=== PATIENT | male | born 1950 | race Caucasian/White ===

== ENCOUNTER 2022-09-03 13:13 | Inpatient (IN) | payer OTHER, SELFPAY ==
[2022-09-03 13:15] VITALS: BP 178/95; PULSE 65; RESP 14; TEMP 36.6; O2SAT 97; BMI 25.7
--- NOTE | 2022-09-03 14:01 | VDLE_ITS ---
Reason For Study: Bilateral leg swelling RIGHT LEFT GSV is normal. GSV is normal. CFV is compressible, spontaneous, competent CFV is compressible, spontaneous, competent, and demonstrates pulsatile venous flow. and demonstrates pulsatile venous flow. FV is compressible, spontaneous, competent FV is compressible, spontaneous, competent and demonstrates pulsatile venous flow. and demonstrates pulsatile venous flow. POP V is compressible, spontaneous, competent PopV is partially comrpessible with bright and demonstrates pulsatile venous flow. intraluminal echoes consistent with Chronic T/P Trunk is compressible. DVT. Pulsatile venous flow noted. PTV is compressible. T/P trunk is partially compressible with RT PerV is compressible. bright intraluminal echoes noted consistent Procedure with Chronic DVT. This is a venous duplex using B-mode, color PTV is compressible. flow and spectral Doppler. LT PerV is compressible. Exam performed portable in ED. A preliminary report was called and/or faxed to Dr. Zheng. VL/Venous Duplex US - Melvin Extrem Interpretation Summary Chronic deep venous thrombosis left popliteal and tibial peroneal trunk Pulsatile venous flow is noted bilaterally consistent with proximal venous hype rtension or obstruction. Clinical correlation would be appropriate. Patent and compressible bilateral great saphenous veins Ordering Physician: Charlie Zheng Referring Physician: [facility] Performed By: Anna Frederick RVT
--- NOTE | 2022-09-03 14:21 | ED.RN ---
PIV removed per patients request
--- NOTE | 2022-09-03 14:22 | ED.VIS.DYS ---
HPI History of Present Illness Chief Complaint: Shortness of Breath Informant: patient and friend Narrative Narrative: Patient presents with a complaint of dyspnea. Patient states that he has been having dyspnea for about 6 months. It really only occurs when he walks a long distance. Today he walked to the [employer] and he had to stop a couple times. He was dyspneic when he was at the bank so the custodian blood bank recommended he come in. He called his friend who brought him in. He is not dyspneic now. He is not getting chest pain with this. He is not coughing. No hemoptysis. He also states on review of systems that he has been having some leg swelling going on for about the same period of time. He has no history of CHF. Although he is a former smoker he quit many years ago and is never been diagnosed with COPD. He does not know if he has heard wheezing or any sounds when he is breathing. He does not have orthopnea. He states he has talked to the [facility] about this but they have not really done anything. He states if he walks slowly short distances or is not active he does not have dyspnea. But he also does not get chest pain with this. It is not getting notably worse at any quick rate. He has not noticed any significant weight gain or weight loss. No travel surgery immobilization personal or family history of DVT or PE. Patient does have high blood pressure possible thyroid disease, localized prostate cancer that is being followed. No diabetes. PFSH PFSH Allergy/AdvReac Type Severity Reaction Status Date / Time No Known Allergies Allergy Verified 09/03/22 13:14 Social History Smoking Status: Former smoker ROS ROS ED ROS Narrative A complete review of systems was performed and is negative except as documented in the history of present illness. Some specific details below. Constitutional: No recent fevers or chills. Days. EYE: No discharge, visual complaints, or pain. ENT: No difficulty swallowing. No swelling. No pain. No reflux symptoms. CV: No chest pain or palpitations. Respiratory: See history of present illness. GI: No abdominal pain. No nausea vomiting diarrhea. No blood in stool. : No frequency dysuria or hematuria. Musculoskeletal: No recent trauma. No pains. He does have bilateral lower extremity swelling. Skin: No rash. Nondiaphoretic. Neuro: No weakness or numbness. Endocrine: No polyuria or polydipsia. EXAM Physical Exam Narrative Exam Narrative: CONSTITUTIONAL: Patient is nontoxic in appearance. The patient looks comfortable. Work of breathing looks normal while the patient is sitting in bed. HEENT: No notable trauma. Mucous membranes moist. No sinus tenderness. No indication of pain with swallowing. EYES: No conjunctival injection. No proptosis. No pallor. NECK:No JVD. No stridor. CARDIOVASCULAR: Regular rate. Regular rhythm. No notable murmur. No JVD. I see no ectopy on the monitor. Monitor shows a normal sinus rhythm with a rate in the mid 60s. RESPIRATORY: No respiratory distress. Breathing is unlabored. No wheezes. But he does have mild prolonged expiration no rhonchi. No rales. No pain with a deep breath. No chest wall tenderness. GASTROINTESTINAL: Not distended. Bowel sounds are normal. No tenderness. No guarding. No rebound. No palpable mass. No bruit is heard. GENITOURINARY: No tenderness over the bladder. No CVA tenderness. MUSCULOSKELETAL: Atraumatic. Patient does have some bilateral +1 edema from little below the knee on down. No erythema. No cord. No real tenderness. NEUROLOGICAL: Patient is alert and appropriate. No focal deficit noted. SKIN: No noted rashes. No diaphoresis. PSYCHIATRIC: Patient is calm. Mood is appropriate. Const Vital Signs: 09/03/22 13:15 09/03/22 14:36 09/03/22 15:17 Temperature 98 F 97.0 F L Temperature Source Temporal Temporal Pulse Rate 65 60 71 Respiratory Rate 14 18 20 H Respiratory Effort Respiratory Depth Respiratory Pattern Normal Blood Pressure 178/95 H 174/97 H Blood Pressure Mean 122 122 Pulse Ox 97 96 Oxygen Delivery Method Room Air Room Air 09/03/22 15:19 Temperature Temperature Source Pulse Rate Respiratory Rate Respiratory Effort Short of Breath Respiratory Depth Normal Respiratory Pattern Tachypnea Blood Pressure Blood Pressure Mean Pulse Ox Oxygen Delivery Method Room Air MDM MDM MDM Narrative Medical decision making narrative: I independent interpretation of the patient's two-view x-ray shows bilateral mild effusions. Final reading shows these effusions but also mentions a millimeter nodule density projecting over the left fifth anterior rib recommend follow-up CT to exclude underlying parenchymal nodule and possible neoplasia. Patient's ultrasound of the lower extremities show no acute DVT but does show indication of prior DVT on the left. Patient's electrolytes show multiple abnormalities. Sodium is low at 125. Glucose is normal though. Potassium is high at 5.7 but there is no significant EKG changes of hyperkalemia. Patient has acute kidney injury with elevated BUN and creatinine. Creatinine is 3.48. Last blood work that I have is from 2017. Patient also has elevated troponin. But this may also be due to renal insufficiency. I talked with the patient about his medications. We are not able to pull a list from the [facility] as to what meds he is on. We are attempting to call them but have not gotten results back yet. Patient knows he is on something for blood pressure. He thinks he it starts with the letter M and it is twice a day. It may be metoprolol. It sounds like he is on meds for thyroid disease. He is on a allergy pill and he takes vitamin B and vitamin D. He states that he takes 9 total medicines but does not know what they all are. He is not sure what they are all for. He does not recognize any diuretics or know that he is on a water pill. He also denies ever being told that he has had kidney problems. But he is not the best informant for his care. He had a friend bring him in but the friend is not really familiar with the details. With this patient's significant dyspnea on exertion, new or edema. He states that the edema really is just recent even though the dyspnea has been going on longer. He has what I imagine is an acute kidney injury with hyponatremia and hyperkalemia. This patient is not safe for discharge. He will be admitted and the case was discussed with the hospitalist. Lab Data Attestation: I reviewed the patient's lab results. Labs: Laboratory Results - last 24 hr 09/03/22 09/03/22 15:10 15:10 WBC 5.3 RBC 3.92 L Hgb 12.3 L Hct 34.7 L MCV 88.5 MCH 31.4 MCHC 35.4 RDW Std Deviation 39.9 RDW Coeff of Itzel 12.3 Plt Count 56 L MPV 10.8 Immature Gran % (Auto) 0.200 Neut % (Auto) 80.0 H Lymph % (Auto) 9.3 L [place] % (Auto) 9.3 Eos % (Auto) 0.6 Baso % (Auto) 0.6 Absolute Neuts (auto) 4.2 Absolute Lymphs (auto) 0.49 L Nucleated RBC % 0 Differential Comment SEE COMMENT Platelet Estimate MOD DEC RBC Morphology N CHROM Anisocytosis RARE Sodium 125 L Potassium 5.7 H Chloride 97 L Carbon Dioxide 17.0 L Anion Gap 11 BUN 78 H Creatinine 3.48 H Estim Creat Clear Calc 16.81 Est GFR (MDRD) Af Amer 22 L Est GFR (MDRD) Non-Af 18 L BUN/Creatinine Ratio 22.4 H Glucose 88 Calcium 8.1 L Troponin I High Sens 94 H Radiography Diagnostic Testing: Clinical Impression(s) from Imaging Studies Chest X-Ray 09/03/22 14:55 IMPRESSION: Bibasilar pleural effusions with adjacent subsegmental atelectasis. No acute consolidative process. Millimeter nodular density projecting over the left fifth anterior rib end. Recommend follow-up chest CT to exclude underlying pulmonary parenchymal nodule and possible neoplasia. Electronically Signed: Suresh Johnson MD at 15:25 EDT , EKG Initial EKG: Comments: My independent interpretation the patient's EKG shows normal sinus rhythm. Overall rate of 61. No acute ST elevation or pression. No ectopy. CA interval, QRS duration and QTc are all normal. Management Discussion w/another healthcare provider: Hospitalist Discharge Plan Dx/Rx/DC Orders Clinical Impression: Dyspnea on exertion, Acute kidney injury, Acute hyponatremia, Hyperkalemia, Elevated troponin Disposition Disposition: Acute Care [facility]
[2022-09-03] MEDS: Ipratropium/Albuterol Sulfate 3 ML AMPUL.NEB INHALATION (14:35)
[2022-09-03 14:36] VITALS: PULSE 60; RESP 18
--- NOTE | 2022-09-03 14:55 | RAD_ITS ---
INDICATION: SOB EXAMINATION/TECHNIQUE: X-RAY - XR Chest 2 Views COMPARISON: 04/02/2017 FINDINGS: LINES/DEVICES: None. LUNGS: Bilateral small pleural effusions. Bibasilar subsegmental atelectasis. No consolidations. 9 mm nodular density projects over the left fifth anterior rib end, not previously identified. No vascular congestion. MEDIASTINUM AND CARDIOVASCULAR STRUCTURES: Cardiac silhouette not enlarged. Central airways and mediastinal contour are unremarkable. BONES AND SOFT TISSUES: No acute changes. RAD/Chest PA and Lateral IMPRESSION: Bibasilar pleural effusions with adjacent subsegmental atelectasis. No acute consolidative process. Millimeter nodular density projecting over the left fifth anterior rib end. Recommend follow-up chest CT to exclude underlying pulmonary parenchymal nodule and possible neoplasia. Electronically Signed: Suresh Johnson MD at 15:25 EDT ,
[2022-09-03 15:17] VITALS: BP 174/97; PULSE 71; RESP 20; TEMP 36.1; O2SAT 96
[2022-09-03 15:19] VITALS: O2SAT 96
[2022-09-03 15:32] LABS: Absolute Lymphocyte Count 0.49 X10^3/uL (0.83-4.51); Absolute Neutrophil Count 4.2 X10^3/uL (2.0-7.7); Basophil# 0.03 X10^3/uL; Basophil% 0.6 % (0-1); Eosinophil# 0.03 X10^3/uL; Eosinophils% 0.6 % (0-5); Hematocrit 34.7 % (40-54); Hemoglobin 12.3 g/dL (13.0-16.5); Lymphocyte # 0.49 X10^3/ul (0.83-4.51); Lymphocyte % 9.3 % (19-41); Mean Corp Hgb Conc 35.4 g/dL (32-36); Mean Corpuscular Hgb 31.4 pg (27.0-32.0); Mean Corpuscular Volume 88.5 fL (80-94); Mean Platelet Vol. 10.8 fl (6.2-12.0); Monocyte# 0.49 X10^3/uL; Monocyte% 9.3 % (0-10); NRBC Flagged by Analyzer 0 % (0-5); POSITIVE COUNT YES; POSITIVE DIFFERENTIAL YES; Platelet Count 56 K/mm3 (150-450); RBC Distribution Width CV 12.3 % (11.6-14.6); RBC Distribution Width SD 39.9 fl (35.1-43.9); Red Blood Count 3.92 M/mm3 (4.6-6.2); White Blood Count 5.3 K/mm3 (4.4-11.0)
[2022-09-03 15:50] LABS: Anion Gap 11 (5-15); BUN 78 mg/dL (7-18); BUN/Creat Ratio 22.4 RATIO (10-20); Calcium,Total 8.1 mg/dL (8.5-10.1); Chloride 97 mmol/L (98-107); Creatinine, Serum 3.48 mg/dL (0.70-1.30); EST Glomerular Filtration Rate 18 mL/min (>60); Est Glom Filt Rate - Afr Amer 22 mL/min (>60); Estimated Creatinine Clearance 16.81 ml/min; Glucose 88 mg/dL (74-106); Potassium 5.7 mmol/L (3.5-5.1); Sodium Level 125 mmol/L (136-145); Troponin-I HS 94 pg/mL (3.0-78.0)
[2022-09-03 15:59] LABS: Differential Indicated SCAN CRITERIA MET
[2022-09-03 16:02] LABS: Anisocytosis RARE; Platelet Estimate MOD DEC (ADEQ); Red Cell Morphology N CHROM NORMAL (NORM C&C)
--- NOTE | 2022-09-03 16:26 | NURSING ---
Addendum entered by Jenifer Jackson 09/03/22 16:33: ON HOLD 15 MIN Original Note: ON HOLD WITH MEDICAL RECORDS AT [facility] FOR INFO. NO ANSWER
--- NOTE | 2022-09-03 16:34 | NURSING ---
DR GONZALES FOR DR BEASLEY
[2022-09-03 16:35] LABS: BNP,B-Type NATRIURETIC PEPTIDE 906.5 pg/mL (0-100)
--- NOTE | 2022-09-03 16:39 | NURSING ---
CALLED [facility], LEFT MESSAGE FOR LABS, MEDS, ETC. FAXING CHART TO [phone]
--- NOTE | 2022-09-03 16:41 | US_ITS ---
STUDY: RENAL ULTRASOUND - COMPLETE REASON FOR EXAM: Male, 72 years old. Renal failure TECHNIQUE: Ultrasound evaluation of the kidneys was performed with real-time and static lowery-scale imaging. COMPARISON: None. FINDINGS: RIGHT KIDNEY: Normal location of the right kidney, which is normal in size. The right kidney measures 10.3 cm. There is a normal cortex of the right kidney. The renal cortex measures 1.6 cm. There is 2.2 cm cyst. There are no right renal calculi. There is no right hydronephrosis. DISTAL RIGHT URETER: There is non-visualization of the distal right ureter. There is no demonstrated right ureterovesical junction calculus. There is no demonstrated right ureteral jet. LEFT KIDNEY: Normal location of the left kidney, which is normal in size. The left kidney measures 9.9 cm. There is a normal cortex of the left kidney. The renal cortex measures 1.5 cm. There are cysts measuring up to 1.0 cm. There are echogenic foci with small stones or prominent vessels. There is no left hydronephrosis. DISTAL LEFT URETER: There is non-visualization of the distal left ureter. There is no demonstrated left ureterovesical junction calculus. There is no demonstrated left ureteral jet. BLADDER: The distended urinary bladder has a volume of 133 ml. There is a diffusely thickened wall of the distended bladder. There is no demonstrated mass within the urinary bladder. There are no demonstrated bladder calculi. US/Kidney and Bladder IMPRESSION: Renal cysts. Small stones versus prominent vessels on the left. No hydronephrosis. Wall thickening of the urinary bladder. Electronically Signed: Diego Espitia MD at 20:23 EDT ,
[2022-09-03 16:45] LABS: Thyroid Stim Hormone (TSH) 4.11 uIU/mL (0.358-3.74)
--- NOTE | 2022-09-03 16:54 | NURSING ---
MED SURG CHRISTIAN SHADY, HYPONATREMIA, EDEMA
[2022-09-03 18:07] VITALS: BMI 25.3
--- NOTE | 2022-09-03 18:07 | HP.PCM.HOS_ITS ---
HPI - General General Date of Admission: 09/03/22 Date of Service: 09/03/22 Chief Complaint: Shortness of breath HPI Narrative SAMSON ROBERTS, is a 72 M who presents to the emergency room at [facility] for evaluation of shortness of breath which she states has been going on for several months. Patient was noted to be short of breath at a bank today and the bank notified his friend who brought him to the emergency room for evaluation. Patient is hard of hearing, he does not know any of his medications, and he is an overall poor informant. Patient did not tell this examiner that he had been short of breath, this was relayed to the emergency room physician however. Labs obtained in the emergency room included a CBC which showed a normal white blood cell count, hemoglobin was 12.3, sodium was 125, potassium was 5.7, creatinine was 3.48, and BUN was 78. Patient's beta natruretic peptid was elevated at 906, patient's troponin was 94, TSH was 4.11. Patient's chest x-ray showed bibasilar pleural effusions with adjacent subsegmental atelectasis, there was a 9 mm nodular density projecting over the left fifth anterior rib and, it was recommended that a CT and follow-up be performed to exclude neoplasm. Patient's bladder scan in the emergency room resulted in 162 cc of urine. At the time of this dictation, lower extremity venous study is pending as is a renal ultrasound. Patient will be admitted to [place] [id number] for acute kidney failure, he will be given IV fluids and labs will be monitored. [facility] Allergy/AdvReac Type Severity Reaction Status Date / Time No Known Allergies Allergy Verified 09/03/22 13:14 Social History Smoking Status: Former smoker ROS ROS Narrative Review of systems was difficult to obtain from the patient due to the patient being a poor informant and hard of hearing. Constitutional Constitutional: Denies chills, fatigue or malaise Eyes Eyes: Denies blurry vision ENT HEENT: Reports hearing loss; Denies ear pain Cardiovascular Cardiovascular: Reports dyspnea on exertion and edema; Denies chest pain or cla udication Respiratory/Chest Respiratory/Chest: Reports dyspnea and shortness of breath with exertion; Denies shortness of breath at rest Gastrointestinal Gastrointestinal: Denies abdominal pain, constipation or diarrhea Genitourinary Genitourinary: Reports urinary frequency; Denies burning urination, difficulty urinating or dysuria Musculoskeletal Musculoskeletal: Denies back pain, joint swelling or neck pain Neurologic Neurologic: Denies abnormal gait, abnormal speech, confusion or focal weakness Psychiatric Psychiatric: Denies anxiety or depression Endocrine Endocrinology: Denies cold intolerance or heat intolerance Hematologic/Lymphatic Hematologic/Lymphatic: Denies anemia or easy bleeding Allergic/Immunologic Allergic/Immunologic: Denies asthma Vital Signs Vital Signs Vital Signs: 09/03/22 13:15 09/03/22 14:36 09/03/22 15:17 Temperature 98 F 97.0 F L Temperature Source Temporal Temporal Pulse Rate 65 60 71 Respiratory Rate 14 18 20 H Respiratory Effort Respiratory Depth Respiratory Pattern Normal Blood Pressure 178/95 H 174/97 H Blood Pressure Mean 122 122 Pulse Ox 97 96 Oxygen Delivery Method Room Air Room Air 09/03/22 15:19 Temperature Temperature Source Pulse Rate Respiratory Rate Respiratory Effort Short of Breath Respiratory Depth Normal Respiratory Pattern Tachypnea Blood Pressure Blood Pressure Mean Pulse Ox Oxygen Delivery Method Room Air Weight Weight: 72.3 kg Body Mass Index (BMI) 25.7 Physical Exam Const alert, oriented x3 and no apparent distress Constitutional Narrative: Patient appears older than his stated age, he is a poor informant, he is hard of hearing General Appearance: cooperative, well kempt and well developed Orientation / Consciousness: awake, oriented to person, oriented to place and oriented to time HEENT normocephalic, head/scalp atraumatic and moist oral mucous membranes HEENT Narrative: Patient is hard of hearing Eyes PERRL, EOMs intact bilaterally and conjunctivae normal Neck supple, no JVD, thyroid normal and no carotid bruits General: trachea midline Resp normal respiratory effort, no retractions, no use of accessory muscles and clear to auscultation bilaterally Auscultation: Negative for rales, rhonchi or wheezes Cardio regular rate, regular rhythm, S1 normal heart sound, S2 normal heart sound, no murmurs, no rub and no gallops GI normal to inspection, nondistended, normoactive bowel sounds, soft to palpation, non-tender and non-distended Extremity Extremity Narrative: There is +2 mm pitting edema of the lower legs bilaterally Skin no rashes or lesions noted General Skin Exam: no breakdown Neuro oriented x3, CN's II-XII intact bilaterally, moves all extremities, no focal motor deficits and no sensory deficits noted Sensorium / Orientation: awake, alert, oriented to person, oriented to place and oriented to time Speech: speech normal Psych affect normal Results Lab / Micro Data Result Diagrams: 09/03/22 15:10 09/03/22 15:10 Labs: Laboratory Results - last 24 hr 09/03/22 15:10: WBC 5.3, RBC 3.92 L, Hgb 12.3 L, Hct 34.7 L, MCV 88.5, MCH 31.4, MCHC 35.4, RDW Std Deviation 39.9, RDW Coeff of Itzel 12.3, Plt Count 56 L, MPV 10.8, Immature Gran % (Auto) 0.200, Neut % (Auto) 80.0 H, Lymph % (Auto) 9.3 L, [place] % (Auto) 9.3, Eos % (Auto) 0.6, Baso % (Auto) 0.6, Absolute Neuts (auto) 4.2, Absolute Lymphs (auto) 0.49 L, Nucleated RBC % 0, Differential Comment SEE COMMENT, Platelet Estimate MOD DEC, RBC Morphology N CHROM, Anisocytosis RARE 09/03/22 15:10: Sodium 125 L, Potassium 5.7 H, Chloride 97 L, Carbon Dioxide 17.0 L, Anion Gap 11, BUN 78 H, Creatinine 3.48 H, Estim Creat Clear Calc 16.81, Est GFR (MDRD) Af Amer 22 L, Est GFR (MDRD) Non-Af 18 L, BUN/Creatinine Ratio 22.4 H, Glucose 88, Calcium 8.1 L, Troponin I High Sens 94 H 09/03/22 15:10: B-Natriuretic Peptide 906.5 H 09/03/22 15:10: TSH 4.11 H Radiology Impression Venous Doppler Study 09/03/22 14:01 Interpretation Summary Chronic deep venous thrombosis left popliteal and tibial peroneal trunk Pulsatile venous flow is noted bilaterally consistent with proximal venous hypertension or obstruction. Clinical correlation would be appropriate. Patent and compressible bilateral great saphenous veins Ordering Physician: Charlie Zheng Referring Physician: [facility] Performed By: Anna Frederick RVT Chest X-Ray 09/03/22 14:55 IMPRESSION: Bibasilar pleural effusions with adjacent subsegmental atelectasis. No acute consolidative process. Millimeter nodular density projecting over the left fifth anterior rib end. Recommend follow-up chest CT to exclude underlying pulmonary parenchymal nodule and possible neoplasia. Electronically Signed: Suresh Johnson MD at 15:25 EDT , Assessment & Plan Assessment/Plan (1) Acute renal failure: PLAN: Plan 1. Acute renal failure-this is difficult to ascertain because we do not have any of the patient's old labs, patient maintains that he is never had a problem with my kidneys, patient will be admitted to [facility] 3, he will be given IV fluids, labs will be monitored, we will need to obtain labs from the [facility] tomorrow #2 hyperkalemia-I will recheck the patient's BMP later on tonight #3 hyponatremia-etiology unclear, BMP will be rechecked later tonight #4 hard of hearing-complicates care, medical course, recovery, and prognosis #5 elevated TSH-I will obtain a T4 and T3 on the patient #6 elevated troponin-patient has no complaints of any chest pain, I will repeat his troponin in a few hours #7 bilateral pleural effusions-I will order an echocardiogram on the patient, he is not hypoxic #8 elevated beta natruretic peptide-this may be due to the patient's poor renal function, again I will order an echocardiogram on the patient, patient has no current evidence of CHF #9 lower extremity edema-etiology unclear, ultrasound of the patient's lower extremities is pending at this time, his edema could be secondary to renal failure or pulmonary hypertension, echocardiogram is going to be obtained Total clinical time spent by myself addressing patient's medical issues, review ing all of his data, and collaborating with patient's care team: 75 minutes Charges/Coding Visit Charges Inpatient E&M: 01447 Init Hosp L3
[2022-09-03 18:16] VITALS: BP 156/88; PULSE 60; RESP 18; TEMP 36.7; O2SAT 96
--- NOTE | 2022-09-03 18:26 | ECHOD_ITS ---
Reason For Study: DYSPNEA/SOB Procedure This was a 2D Doppler, Color Flow transthoracic echocardiogram. Exam performed portable in patient room. Left Ventricle Normal size and thickness. The left ventricular ejection fraction is 60 %. Diastolic function is indeterminate. Right Ventricle Normal right ventricle. Atria The left and right atria are normal. Mitral Valve Moderate (2+) mitral valve insufficiency. Tricuspid Valve Mild tricuspid valve insufficiency. Right ventricular systolic pressure estimated to be 55 mmHg. Moderate pulmonary hypertension. Aortic Valve Aortic sclerosis, no stenosis. Pulmonic Valve The pulmonic valve is not well visualized. Great Vessels Normal sized aortic root. Pericardium/Pleural Small pericardial effusion. Moderate size left pleural effusion. MMode/2D Measurements & Calculations LVIDd: 4.6 cm IVSd: 1.00 cm Ao root diam: 3.1 cm LVIDs: 3.2 cm LVPWd: 1.1 cm RVDd: 3.1 cm FS: 31.0 % LAV(MOD-bp): 44.4 ml LVAd ap4: 26.7 cm2 SV(MOD-sp4): 51.1 ml LAV(MOD-bp) Indexed: 24.6 ml/m2 LVLd ap4: 7.3 cm LAV(MOD-sp2): 44.2 ml EDV(MOD-sp4): 82.2 ml LAV(MOD-sp4): 37.1 ml EDV(sp4-el): 83.1 ml LVAs ap4: 14.5 cm2 LVLs ap4: 5.7 cm ESV(MOD-sp4): 31.2 ml ESV(sp4-el): 31.1 ml EF(MOD-sp4): 62.1 % EF(sp4-el): 62.6 % SV(sp4-el): 52.0 ml LA A4 area: 14.7 cm2 LA dimension(2D): 3.4 cm RA A4 area: 12.3 cm2 Time Measurements MV dec time: 0.17 sec Doppler Measurements & Calculations MV E max robbin: 90.0 cm/sec Lat Peak E' Robbin: 7.2 cm/sec Med Peak E' Robbin: 7.5 cm/sec MV A max robbin: 95.8 cm/sec E/E' lat: 12.5 E/E' med: 12.0 MV E/A: 0.94 Ao V2 max: 139.9 cm/sec LV V1 max: 113.5 cm/sec PA V2 max: 84.4 cm/sec Ao max P.8 mmHg LV V1 max P.2 mmHg TR max robbin: 334.6 cm/sec TR max P.8 mmHg ECHO/Echo Complete Interpretation Summary The left ventricular ejection fraction is 60 %. Diastolic function is indeterminate. Moderate (2+) mitral valve insufficiency. Mild tricuspid valve insufficiency. Moderate pulmonary hypertension. Aortic sclerosis, no stenosis. Small pericardial effusion. Moderate size left pleural effusion. Ordering Physician: Robb Suazo Referring Physician: [facility] Performed By: Beth Cox RDCS
[2022-09-03] MEDS: 0.9% Normal Saline 1,000 ML 100 ML IV (18:51)
[2022-09-03 19:27] LABS: T4 Total, Thyroxin 9.5 ug/dL (4.5-12.1)
[2022-09-03 21:08] LABS: T3 Total - Triiodothyronine 0.76 ng/mL (0.6-1.81)
[2022-09-03 22:18] VITALS: BP 119/73; PULSE 62; RESP 18; TEMP 36.4; O2SAT 96
[2022-09-03] MEDS: Heparin Injection (Vial) 5,000 UNIT/ML VIAL 5000 UNIT SC (22:22)
[2022-09-03 22:55] LABS: Anion Gap 8 (5-15); BUN 79 mg/dL (7-18); BUN/Creat Ratio 21.6 RATIO (10-20); Calcium,Total 7.9 mg/dL (8.5-10.1); Chloride 98 mmol/L (98-107); Creatinine, Serum 3.65 mg/dL (0.70-1.30); EST Glomerular Filtration Rate 17 mL/min (>60); Est Glom Filt Rate - Afr Amer 21 mL/min (>60); Estimated Creatinine Clearance 16.02 ml/min; Glucose 114 mg/dL (74-106); Potassium 5.4 mmol/L (3.5-5.1); Sodium Level 125 mmol/L (136-145)
[2022-09-03 23:03] LABS: Troponin-I HS 60 pg/mL (3.0-78.0)
[2022-09-04 05:05] VITALS: BP 159/89; PULSE 57; RESP 18; TEMP 36.4; O2SAT 96
[2022-09-04] MEDS: 0.9% Normal Saline 1,000 ML 100 ML IV (05:05)
[2022-09-04 06:38] LABS: Anion Gap 9 (5-15); BUN 77 mg/dL (7-18); BUN/Creat Ratio 22.2 RATIO (10-20); Calcium,Total 7.7 mg/dL (8.5-10.1); Chloride 100 mmol/L (98-107); Creatinine, Serum 3.47 mg/dL (0.70-1.30); EST Glomerular Filtration Rate 18 mL/min (>60); Est Glom Filt Rate - Afr Amer 22 mL/min (>60); Estimated Creatinine Clearance 16.85 ml/min; Glucose 95 mg/dL (74-106); Potassium 5.4 mmol/L (3.5-5.1); Sodium Level 126 mmol/L (136-145)
--- NOTE | 2022-09-04 07:29 | PCM.PN.HOSP ---
Reason for Visit Reason for Visit: Diagnoses Acute kidney failure, unspecified (09/03/22) Subjective Subjective f/u SOB and SHADY. Reports increasing shortness of breath over the past 6 months was discontinued to worsen prompting his admission. He is also gaining weight and has become more edematous. Reports no difficulty with urination. No cough that is different from baseline Objective Data Objective Data Vital Signs: Vital Signs Temp Pulse Resp BP Pulse Ox O2 Del Method 97.5 F L 57 L 18 159/89 H 96 Room Air 09/04/22 05:05 09/04/22 05:05 09/04/22 05:05 09/04/22 05:05 09/04/22 05:05 09/04/22 05:05 Oxygen Delivery Method Room Air Weight: 71.2 kg Body Mass Index (BMI) 25.3 Intake & Output: Intake and Output for Last 24 Hours 09/02/22 09/03/22 09/04/22 23:59 23:59 23:59 Intake Total 400 / 400 1400 / 1400 Output Total 200 / 200 200 / 200 Balance 200 / 200 1200 / 1200 Lab / Micro Data Result Diagrams: 09/03/22 15:10 09/04/22 05:24 Labs: Laboratory Results - last 24 hr 09/03/22 15:10: WBC 5.3, RBC 3.92 L, Hgb 12.3 L, Hct 34.7 L, MCV 88.5, MCH 31.4, MCHC 35.4, RDW Std Deviation 39.9, RDW Coeff of Itzel 12.3, Plt Count 56 L, MPV 10.8, Immature Gran % (Auto) 0.200, Neut % (Auto) 80.0 H, Lymph % (Auto) 9.3 L, [place] % (Auto) 9.3, Eos % (Auto) 0.6, Baso % (Auto) 0.6, Absolute Neuts (auto) 4.2, Absolute Lymphs (auto) 0.49 L, Nucleated RBC % 0, Differential Comment SEE COMMENT, Platelet Estimate MOD DEC, RBC Morphology N CHROM, Anisocytosis RARE 09/03/22 15:10: Sodium 125 L, Potassium 5.7 H, Chloride 97 L, Carbon Dioxide 17.0 L, Anion Gap 11, BUN 78 H, Creatinine 3.48 H, Estim Creat Clear Calc 16.81, Est GFR (MDRD) Af Amer 22 L, Est GFR (MDRD) Non-Af 18 L, BUN/Creatinine Ratio 22.4 H, Glucose 88, Calcium 8.1 L, Troponin I High Sens 94 H 09/03/22 15:10: B-Natriuretic Peptide 906.5 H 09/03/22 15:10: TSH 4.11 H 09/03/22 15:10: Thyroxine (T4) 9.5 09/03/22 19:35: Total T3 0.76 09/03/22 22:13: Sodium 125 L, Potassium 5.4 H, Chloride 98, Carbon Dioxide 19.0 L, Anion Gap 8, BUN 79 H, Creatinine 3.65 H, Estim Creat Clear Calc 16.02, Est GFR (MDRD) Af Amer 21 L, Est GFR (MDRD) Non-Af 17 L, BUN/Creatinine Ratio 21.6 H, Glucose 114 H, Calcium 7.9 L 09/03/22 22:13: Troponin I High Sens 60 09/04/22 05:24: Sodium 126 L, Potassium 5.4 H, Chloride 100, Carbon Dioxide 17.0 L, Anion Gap 9, BUN 77 H, Creatinine 3.47 H, Estim Creat Clear Calc 16.85, Est GFR (MDRD) Af Amer 22 L, Est GFR (MDRD) Non-Af 18 L, BUN/Creatinine Ratio 22.2 H, Glucose 95, Calcium 7.7 L Radiography Diagnostic Testing: Radiology Impression Venous Doppler Study 09/03/22 14:01 Interpretation Summary Chronic deep venous thrombosis left popliteal and tibial peroneal trunk Pulsatile venous flow is noted bilaterally consistent with proximal venous hypertension or obstruction. Clinical correlation would be appropriate. Patent and compressible bilateral great saphenous veins Ordering Physician: Charlie Zheng Referring Physician: [facility] Performed By: Anna Frederick RVT Chest X-Ray 09/03/22 14:55 IMPRESSION: Bibasilar pleural effusions with adjacent subsegmental atelectasis. No acute consolidative process. Millimeter nodular density projecting over the left fifth anterior rib end. Recommend follow-up chest CT to exclude underlying pulmonary parenchymal nodule and possible neoplasia. Electronically Signed: Suresh Johnson MD at 15:25 EDT , Renal Ultrasound 09/03/22 16:41 IMPRESSION: Renal cysts. Small stones versus prominent vessels on the left. No hydronephrosis. Wall thickening of the urinary bladder. Electronically Signed: Diego Espitia MD at 20:23 EDT , Physical Exam Narrative General: Alert, appears short of breath walking from bathroom HEENT: Atraumatic, normocephalic Eyes: Anicteric, normal conjunctiva, extraocular movements grossly intact Neck: Supple Respiratory: Just walked from bathroom, slight increased work of breathing, diminished at the bases Cardiovascular: Regular rate GI: Soft, nontender, nondistended Extremities: 2+ bilateral lower extremity pitting edema Musculoskeletal: Moving all extremities Neuro: No overt focal neurological deficits Skin: No rashes appreciated Psych: Cooperative Assessment & Plan Assessment/Plan (1) Acute kidney injury: PLAN: Plan #SHADY/acute renal failure -Creatinine 3.48 in the ED with a BUN of 78 and a potassium of 5.7 -No previous labs and therefore do not have a baseline however he denied any previous problem with kidneys -Trend BMP -Was given IVF however given BNP and clinical picture may in fact be overloaded and creatinine did not improve with IVF, will hold at this time pending studies -Creatinine virtually unchanged this morning at 3.47, will obtain urine studies -Renal ultrasound with renal cysts and small stones versus prominent vessels on the left -Wall thickening of urinary bladder, unclear significance #Hyperkalemia -Likely secondary to acute renal failure -5.7 on admission now 5.4 #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 -Lower extremity duplex with left popliteal and tibial peroneal trunk chronic DVT -Given proximal component patient qualifies for anticoagulation, do not see contraindication to this -Given they are chronic in nature do not feel he needs loaded and will start Eliquis 5 twice daily #Shortness of breath -BNP 906 in ED -Bilateral lower extremity edema, suspect overload -Chest x-ray with bibasilar pleural effusions and atelectasis with a 9 mm nodule density projecting over the left fifth anterior rib recommending CT be performed to exclude neoplasm, will order chest ct -We will additionally get echocardiogram #Hyponatremia -Sodium 125 on presentation and 126 in a.m. -TSH 4.11 -We will check serum and urine osmolalities and urine lytes #Elevated troponin -Suspect type II given elevated BNP and renal failure -Original troponin 94 and down trended to 60 #hard of hearing -complicates care, medical course, recovery, and prognosis #DVT ppx: Starting Eliquis due to DVT Jeanette Yo MD Time spent in the patient's overall evaluation,decision-making process, review of diagnostic data, adjustment of management, discussion with other providers, nursing nursing and ancillary staff involved in patient's care documentation, 30 minutes Charges/Coding Visit Charges Inpatient E&M: 85681 Subs Hosp L2
[2022-09-04 07:50] VITALS: BP 164/83; PULSE 83; RESP 18; TEMP 36.6; O2SAT 98
--- NOTE | 2022-09-04 07:51 | CT_ITS ---
STUDY: CT CHEST WITHOUT CONTRAST REASON FOR EXAM: Male, 72 years old. Lung nodule RADIATION DOSAGE (If Supplied By Facility): CTDIvol = ( 12.50 ) mGy, DLP = ( 465.57 ) mGycm TECHNIQUE: Transaxial imaging was performed without the administration of intravenous contrast material. Multiplanar coronal and sagittal images were reformatted. Individualized dose optimization techniques were used for this CT. COMPARISON: No relevant priors. FINDINGS: CHEST There are moderate-sized bilateral pleural effusions right slightly greater than left. Small amount of fluid is seen in the right degenerative fissure. Increased markings at the lung bases suggests over bibasilar atelectasis. Mild degree of calcific plaques of the right parietal pleura. There is no demonstrated pleural abnormality. There are calcifications of the coronary arteries. Small pericardial effusion. There are multiple small lymph nodes within the mediastinum, which are normal in size and morphology most compatible with reactive lymph hyperplasia. Normal hilar regions. Normal unenhanced pulmonary arteries. There is atherosclerotic calcification of the aortic arch with tortuosity and elongation of the aortic arch and descending thoracic aorta. There are multi-level degenerative changes of the thoracic spine. There is no demonstrated abnormality of the visualized upper abdomen. CT/Chest without Contrast IMPRESSION: Moderate-sized bilateral pleural effusions right slightly greater than left with bibasilar atelectasis. Electronically Signed: Reyes Strickland MD at 8:59 EDT ,
[2022-09-04 08:18] LABS: AST(SGOT) 12 U/L (15-37); Alanine Aminotransfer ALT/SGPT 20 U/L (16-61); Albumin, Serum 2.6 g/dL (3.2-5.0); Alkaline Phosphatase 71 U/L (45-117); Bilirubin, Direct 0.13 mg/dL (0.00-0.30); Globulin 2.6 g/dL (2.2-4.2); Protein, Total 5.2 g/dL (6.4-8.2)
[2022-09-04 08:41] LABS: Osmolality, Serum 287 mOsm/KG (280-301)
[2022-09-04 09:59] LABS: Mucous, Urine 0 SEEN /hpf (<or=2+)
[2022-09-04 10:00] LABS: Color, Urine Yellow (Yellow); Glucose, Dipstick Normal (Normal); Ketone-Dipstick 5 mg/dl (Negative); Leukocyte Esterase-Dipstick 25 /ul (Negative); Nitrite-Dipstick Negative (Negative); Occult Blood-Urine 150 /ul (Negative); Protein-Dipstick 500 mg/dl (Negative); Urine Bilirubin Dipstick Negative (Negative); Urine Clarity Sl. Cloudy (Clear); Urine Urobilinogen Normal (Normal)
[2022-09-04] MEDS: Sodium Polystyrene Sulfonate 15 GM/60 ML UDC PO (10:03)
[2022-09-04] MEDS: APIXABAN 5 MG TABLET PO ×2 (10:03→21:08)
[2022-09-04 10:06] LABS: Bacteria 1+ /hpf (None Seen); Red Blood Cells-Urine 10-25 SEEN /hpf (0-5); Squamous Epithelial Cells - UA 0-5 SEEN /hpf (0-5); White Blood Cells 0-5 SEEN /hpf (0-5)
[2022-09-04 10:20] LABS: Urine Chloride < 10 mmol/L (Not Establ.); Urine Sodium < 5 mmol/L (Not Establ.)
[2022-09-04 10:52] LABS: Osmolality, Urine 328 mOsm/KG
[2022-09-04 11:14] LABS: Urea Nitrogen, Urine 398 mg/dL (NO RANGE EST.)
--- NOTE | 2022-09-04 11:35 | CASEMGMT ---
ELDA BRAMBILA Assessment: Face to Face with pt for initial transition planning/care coordination assessment. RN KOSTA introduced self and role at [facility], pt voices understanding and consents to assessment. Pt is A/O x4 and answers all questions appropriately at this time. Pt stood for assessment and was in no distress. Care providers, pharmacy, and demographics verified/updated. Admitting Dx: acute kidney failure PCP:CHANTEL Turner pt unsure of name of physician Specialists:Pt denies. Preferred [facility]acy: [facility] [place]: [place] Pres[place] Benefit: pt obtains meds from [place] LNOK: Nathan Dillon, brother; Marshall Sandoval, friend Living Arrangements: Pt lives alone in a second story apt with 13 steps to enter with a rail. Pt reports he is I in ADL's and denies concerns at home, although states he needs to try to obtain housing without steps to enter. Pt denied need for housing resources. Transportation: Pt does not drive. He uses the [place] van for medical appts. Pt walks in town for needs. DME/HHC/SNF: Pt has a cane at home that he uses, denies further DME. Pt denies hx of HHC or SNF stays. Pt states no concerns with going home at time of dc. Pt denies needs for any therapy or medication education. Provided pt with [employer] savings card and explanation. Pt states no further concerns/needs. CM to follow. Advised pt to ask CM if any further question/concerns/needs arise, voices understanding. Pt Goal: Home Plan: Home
--- NOTE | 2022-09-04 12:52 | NURSING ---
MR request refaxed to [place] medical records. attempted to call to make sure fax received, talked to [facility] ladle operator, on hold for 20minutes without answer to MR department.
--- NOTE | 2022-09-04 13:23 | NURSING ---
faxed MR request to [place] weekend/after hours number.
[2022-09-04 14:22] VITALS: BP 157/83; PULSE 66; RESP 22; TEMP 36.8; O2SAT 96
[2022-09-04 14:47] VITALS: O2SAT 96
[2022-09-04] MEDS: 0.9% Saline Lock 10 ML Syringe IV (15:32)
[2022-09-04] MEDS: Furosemide 40 MG/4 ML Vial IV (15:32)
[2022-09-04 18:01] LABS: Anion Gap 9 (5-15); BUN 79 mg/dL (7-18); BUN/Creat Ratio 23.9 RATIO (10-20); Calcium,Total 8.2 mg/dL (8.5-10.1); Chloride 98 mmol/L (98-107); Creatinine, Serum 3.31 mg/dL (0.70-1.30); EST Glomerular Filtration Rate 20 mL/min (>60); Est Glom Filt Rate - Afr Amer 24 mL/min (>60); Estimated Creatinine Clearance 17.67 ml/min; Glucose 104 mg/dL (74-106); Potassium 5.2 mmol/L (3.5-5.1); Sodium Level 126 mmol/L (136-145)
[2022-09-04 21:00] VITALS: BP 167/92; PULSE 75; RESP 18; TEMP 36.6; O2SAT 93
[2022-09-05] VITALS (7 sets, daily range): BP systolic 138–179; BP diastolic 72–96; PULSE 75–96; RESP 18–24; TEMP 36.4–37.1; O2SAT 94–99
--- NOTE | 2022-09-05 07:13 | PN.HOSP_ITS ---
Reason for Visit Reason for Visit: Diagnoses Acute kidney failure, unspecified (09/03/22) Subjective Subjective Patient continues to report having shortness of breath and feeling swollen, not significantly changed from yesterday. Still unable to obtain his medication list, reports he knows he is on several supplements as well as a thyroid medic ine and blood pressure medicine but does not know which medicines or dosing. Objective Data Objective Data Vital Signs: Vital Signs Temp Pulse Resp BP Pulse Ox O2 Del Method 98.8 F 83 18 155/75 H 94 Room Air 09/05/22 04:50 09/05/22 04:50 09/05/22 04:50 09/05/22 04:50 09/05/22 06:59 09/05/22 06:59 Oxygen Delivery Method Room Air Weight: 71.2 kg Body Mass Index (BMI) 25.3 Intake & Output: Intake and Output for Last 24 Hours 09/03/22 09/04/22 09/05/22 23:59 23:59 23:59 Intake Total 400 / 400 1681.67 / 1681.67 Output Total 200 / 200 200 / 200 100 / 100 Balance 200 / 200 1481.67 / 1481.67 -100 / -100 Lab / Micro Data Result Diagrams: 09/05/22 06:46 09/05/22 06:46 Labs: Laboratory Results - last 24 hr 09/04/22 05:24: Total Bilirubin 0.30, Direct Bilirubin 0.13, AST 12 L, ALT 20, Alkaline Phosphatase 71, Total Protein 5.2 L, Albumin 2.6 L, Globulin 2.6, Free T4 1.10 09/04/22 05:24: Serum Osmolality 287 09/04/22 09:15: Urine Color Yellow, Urine Clarity Sl. Cloudy, Urine pH 5.0, Ur Specific [place] 1.020, Urine Protein 500 H, Urine Glucose (UA) Normal, Urine Ketones 5 H, Urine Occult Blood 150 H, Urine Nitrite Negative, Urine Bilirubin Negative, Urine Urobilinogen Normal, Ur Leukocyte Esterase 25 H, Urine RBC 10-25 SEEN, Urine WBC 0-5 SEEN, Ur Squamous Epith Cells 0-5 SEEN, Urine Bacteria 1+, Urine Mucus 0 SEEN 09/04/22 09:15: Urine Osmolality 328, Urine Creatinine 286.00, Urine Urea Nitrogen 398 09/04/22 09:15: Ur Random Sodium < 5, Urine Potassium 46.0, Urine Chloride < 10 09/04/22 17:30: Sodium 126 L, Potassium 5.2 H, Chloride 98, Carbon Dioxide 19.0 L, Anion Gap 9, BUN 79 H, Creatinine 3.31 H, Estim Creat Clear Calc 17.67, Est GFR (MDRD) Af Amer 24 L, Est GFR (MDRD) Non-Af 20 L, BUN/Creatinine Ratio 23.9 H , Glucose 104, Calcium 8.2 L Radiography Diagnostic Testing: Radiology Impression Echocardiogram 09/03/22 18:26 Interpretation Summary The left ventricular ejection fraction is 60 %. Diastolic function is indeterminate. Moderate (2+) mitral valve insufficiency. Mild tricuspid valve insufficiency. Moderate pulmonary hypertension. Aortic sclerosis, no stenosis. Small pericardial effusion. Moderate size left pleural effusion. Ordering Physician: Robb Suazo Referring Physician: [facility] Performed By: Beth Cox RDCS Chest CT 09/04/22 07:51 IMPRESSION: Moderate-sized bilateral pleural effusions right slightly greater than left with bibasilar atelectasis. Electronically Signed: Reyes Strickland MD at 8:59 EDT , Physical Exam Narrative General: Alert, resting comfortably in chair HEENT: Atraumatic, normocephalic Eyes: Anicteric, normal conjunctiva, extraocular movements grossly intact Neck: Supple Respiratory: Crackles at bilateral bases, no increased work of breathing sitting in chair GI: Soft, nontender, nondistended Extremities: 2+ bilateral lower extremity pitting edema Musculoskeletal: Moving all extremities Neuro: No overt focal neurological deficits Skin: No rashes appreciated Psych: Cooperative Assessment & Plan Assessment/Plan (1) Acute kidney injury: PLAN: Plan #SHADY/acute renal failure -Creatinine 3.48 in the ED with a BUN of 78 and a potassium of 5.7 -No previous labs and therefore do not have a baseline however he denied any previous problem with kidneys -Trend BMP -Was given IVF however given BNP and clinical picture may in fact be overloaded and creatinine did not improve with IVF, will hold at this time pending studies -Creatinine virtually unchanged this morning at 3.47, will obtain urine studies -Renal ultrasound with renal cysts and small stones versus prominent vessels on the left -Wall thickening of urinary bladder, unclear significance -09/05: Did improve some with diuresis, will increase diuresis to 40 IV twice daily today. #Hyperkalemia -Likely secondary to acute renal failure -5.7 on admission now 5.4 -09/05: Improving with diuresis and improving renal function #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 -Lower extremity duplex with left popliteal and tibial peroneal trunk chronic DVT -Given proximal component patient qualifies for anticoagulation, do not see contraindication to this -Given they are chronic in nature do not feel he needs loaded and will start Eliquis 5 twice daily -09/05: Given platelets less than 50 today Eliquis held, will place order for SCDs #Shortness of breath -BNP 906 in ED -Bilateral lower extremity edema, suspect overload -Chest x-ray with bibasilar pleural effusions and atelectasis with a 9 mm nodule density projecting over the left fifth anterior rib recommending CT be performed to exclude neoplasm, will order chest ct -We will additionally get echocardiogram #Hyponatremia -Sodium 125 on presentation and 126 in a.m. -TSH 4.11 -We will check serum and urine osmolalities and urine lytes -09/05: Suspect this is secondary to overload, continue diuresis, sodium did slightly improved today #Elevated troponin -Suspect type II given elevated BNP and renal failure -Original troponin 94 and down trended to 60 #hard of hearing -complicates care, medical course, recovery, and prognosis #DVT ppx: Held home dose of Eliquis due to platelets, DVT found is chronic, SCDs DISPO: Have made multiple attempts to get medication list and records from [place]. We will continue trying to assess to best help patient. No home medications available on external Rx and patient reports he uses [place] pharmacy/no outside pharmacy available to call. Continue diuresis and will continue attempting to get records Jeanette Yo MD Time spent in the patient's overall evaluation,decision-making process, review of diagnostic data, adjustment of management, discussion with other providers, nursing nursing and ancillary staff involved in patient's care documentation, 40 minutes Charges/Coding Visit Charges Inpatient E&M: 03865 Subs Hosp L3
[2022-09-05 08:01] LABS: Absolute Lymphocyte Count 0.42 X10^3/uL (0.83-4.51); Basophil# 0.03 X10^3/uL; Basophil% 0.8 % (0-1); Eosinophil# 0.04 X10^3/uL; Hematocrit 28.9 % (40-54); Hemoglobin 10.2 g/dL (13.0-16.5); Lymphocyte # 0.42 X10^3/ul (0.83-4.51); Lymphocyte % 10.7 % (19-41); Mean Corp Hgb Conc 35.3 g/dL (32-36); Mean Corpuscular Volume 87.8 fL (80-94); Mean Platelet Vol. 11.2 fl (6.2-12.0); Monocyte# 0.45 X10^3/uL; Monocyte% 11.5 % (0-10); NRBC Flagged by Analyzer 0 % (0-5); Neutrophil # 2.98 X10^3/uL (2.7-7.7); Neutrophil % 75.7 % (47-70); POSITIVE COUNT YES; POSITIVE DIFFERENTIAL YES; RBC Distribution Width CV 12.5 % (11.6-14.6); RBC Distribution Width SD 40.1 fl (35.1-43.9); Red Blood Count 3.29 M/mm3 (4.6-6.2); White Blood Count 3.9 K/mm3 (4.4-11.0)
[2022-09-05 08:04] LABS: Differential Indicated SCAN CRITERIA MET; Platelet Count 47 K/mm3 (150-450)
[2022-09-05 08:14] LABS: Anion Gap 10 (5-15); BUN 82 mg/dL (7-18); BUN/Creat Ratio 27.5 RATIO (10-20); Calcium,Total 8.1 mg/dL (8.5-10.1); Chloride 99 mmol/L (98-107); Creatinine, Serum 2.98 mg/dL (0.70-1.30); EST Glomerular Filtration Rate 22 mL/min (>60); Est Glom Filt Rate - Afr Amer 27 mL/min (>60); Estimated Creatinine Clearance 19.63 ml/min; Glucose 91 mg/dL (74-106); Potassium 5.1 mmol/L (3.5-5.1); Sodium Level 127 mmol/L (136-145)
[2022-09-05] MEDS: Furosemide 40 MG/4 ML Vial IV ×2 (09:15→17:17)
[2022-09-05 09:32] LABS: Differential Comment SCANNED; Platelet Estimate MKD DEC (ADEQ)
[2022-09-05] MEDS: Metoprolol Tartrate 25 MG Tablet PO (17:33)
[2022-09-05] MEDS: Glycerin/Hypromellose/PEG400 15 ml Bottle 1 DRP EACH EYE (22:54)
[2022-09-06] VITALS (9 sets, daily range): BP systolic 140–166; BP diastolic 80–91; PULSE 64–79; RESP 18–22; TEMP 36.4–37; O2SAT 94–96
[2022-09-06 05:05] LABS: Absolute Lymphocyte Count 0.39 X10^3/uL (0.83-4.51); Absolute Neutrophil Count 2.9 X10^3/uL (2.0-7.7); Basophil# 0.03 X10^3/uL; Basophil% 0.8 % (0-1); Eosinophil# 0.16 X10^3/uL; Eosinophils% 4.2 % (0-5); Hematocrit 27.6 % (40-54); Hemoglobin 9.6 g/dL (13.0-16.5); Lymphocyte # 0.39 X10^3/ul (0.83-4.51); Lymphocyte % 10.2 % (19-41); Mean Corp Hgb Conc 34.8 g/dL (32-36); Mean Corpuscular Hgb 31.1 pg (27.0-32.0); Mean Corpuscular Volume 89.3 fL (80-94); Mean Platelet Vol. 11.6 fl (6.2-12.0); Monocyte# 0.37 X10^3/uL; Monocyte% 9.7 % (0-10); NRBC Flagged by Analyzer 0 % (0-5); Neutrophil # 2.86 X10^3/uL (2.7-7.7); Neutrophil % 74.6 % (47-70); POSITIVE COUNT YES; POSITIVE DIFFERENTIAL YES; Platelet Count 54 K/mm3 (150-450); RBC Distribution Width CV 12.5 % (11.6-14.6); RBC Distribution Width SD 40.7 fl (35.1-43.9); RET-HE 34.6 pg (30-35); Red Blood Count 3.09 M/mm3 (4.6-6.2); Reticulocyte Count 0.56 % (0.5-1.5); White Blood Count 3.8 K/mm3 (4.4-11.0)
[2022-09-06 05:09] LABS: Differential Indicated SCAN CRITERIA MET
[2022-09-06 05:11] LABS: International Normalized Ratio 1.2
[2022-09-06 05:12] LABS: Partial Thromboplast Time 30.3 Seconds (24.1-36.2)
[2022-09-06] MEDS: Levothyroxine 25 MCG TABLET PO (05:45)
[2022-09-06] MEDS: Glycerin/Hypromellose/PEG400 15 ml Bottle 1 DRP EACH EYE ×3 (05:45→21:47)
[2022-09-06 05:58] LABS: Differential Comment SCANNED; Platelet Estimate MKD DEC (ADEQ)
[2022-09-06 06:01] LABS: Anion Gap 9 (5-15); BUN 91 mg/dL (7-18); BUN/Creat Ratio 32.2 RATIO (10-20); Calcium,Total 7.9 mg/dL (8.5-10.1); Chloride 103 mmol/L (98-107); Creatinine, Serum 2.83 mg/dL (0.70-1.30); EST Glomerular Filtration Rate 23 mL/min (>60); Est Glom Filt Rate - Afr Amer 28 mL/min (>60); Estimated Creatinine Clearance 20.67 ml/min; Ferritin 287 ng/mL (26-388); Glucose 90 mg/dL (74-106); Iron 49 ug/dL (65-175); Iron Binding Capacity,Total 149 ug/dL (250-450); LDH 198 U/L (87-241); PERCENT IRON SATURATION 32.9 % (15.0-55.0); Potassium 5.1 mmol/L (3.5-5.1); Sodium Level 128 mmol/L (136-145)
--- NOTE | 2022-09-06 06:39 | PN.HOSP_ITS ---
Reason for Visit Reason for Visit: Diagnoses Acute kidney failure, unspecified (09/03/22) Subjective Subjective Reports feeling somewhat generally not well but feels like his swelling and breathing are slowly improving Objective Data Objective Data Vital Signs: Vital Signs Temp Pulse Resp BP Pulse Ox O2 Del Method 98.5 F 75 20 H 153/90 H 94 Room Air 09/06/22 03:56 09/06/22 03:56 09/06/22 03:56 09/06/22 03:56 09/06/22 03:56 09/06/22 04:05 Oxygen Delivery Method Room Air Weight: 71.2 kg Body Mass Index (BMI) 25.3 Intake & Output: Intake and Output for Last 24 Hours 09/04/22 09/05/22 09/06/22 23:59 23:59 23:59 Intake Total 1681.67 / 1681.67 350 / 350 400 / 400 Output Total 200 / 200 100 / 100 Balance 1481.67 / 1481.67 250 / 250 400 / 400 Lab / Micro Data Result Diagrams: 09/06/22 04:40 09/06/22 04:40 Labs: Laboratory Results - last 24 hr 09/05/22 06:46: WBC 3.9 L, RBC 3.29 L, Hgb 10.2 L, Hct 28.9 L, MCV 87.8, MCH 31.0, MCHC 35.3, RDW Std Deviation 40.1, RDW Coeff of Itzel 12.5, Plt Count 47 L*, MPV 11.2, Immature Gran % (Auto) 0.300, Neut % (Auto) 75.7 H, Lymph % (Auto) 10.7 L, [place] % (Auto) 11.5 H, Eos % (Auto) 1.0, Baso % (Auto) 0.8, Absolute Neuts (auto) 3.0, Absolute Lymphs (auto) 0.42 L, Nucleated RBC % 0, Differential Comment SCANNED, Diff Path Review August abigail Platelet Estimate MKD 09/05/22 06:46: Sodium 127 L, Potassium 5.1, Chloride 99, Carbon Dioxide 18.0 L, Anion Gap 10, BUN 82 H, Creatinine 2.98 H, Estim Creat Clear Calc 19.63, Est GFR (MDRD) Af Amer 27 L, Est GFR (MDRD) Non-Af 22 L, BUN/Creatinine Ratio 27.5 H, Gl ucose 91, Calcium 8.1 L 09/06/22 04:40: WBC 3.8 L, RBC 3.09 L, Hgb 9.6 L, Hct 27.6 L, MCV 89.3, MCH 31.1, MCHC 34.8, RDW Std Deviation 40.7, RDW Coeff of Itzel 12.5, Plt Count 54 L, MPV 11.6, Immature Gran % (Auto) 0.500, Neut % (Auto) 74.6 H, Lymph % (Auto) 10.2 L, [place] % (Auto) 9.7, Eos % (Auto) 4.2, Baso % (Auto) 0.8, Absolute Neuts (auto) 2.9, Absolute Lymphs (auto) 0.39 L, Nucleated RBC % 0, Differential Comment SCANNED, Diff Path Review August, Platelet Estimate MKD DEC, Immature Plt Fraction 7.0, Retic Count 0.56, Immature Retic Fraction 2.60 L, Retic Hgb Equivalent 34.6 09/06/22 04:40: Sodium 128 L, Potassium 5.1, Chloride 103, Carbon Dioxide 16.0 L , Anion Gap 9, BUN 91 H, Creatinine 2.83 H, Estim Creat Clear Calc 20.67, Est GFR (MDRD) Af Amer 28 L, Est GFR (MDRD) Non-Af 23 L, BUN/Creatinine Ratio 32.2 H , Glucose 90, Calcium 7.9 L, Iron 49 L, TIBC 149 L, Iron Saturation 32.9, Ferritin 287, Lactate Dehydrogenase 198, Folate 10.30 09/06/22 04:40: PT 15.0 H, INR 1.2, APTT 30.3 Physical Exam Narrative General: Alert, resting in bed HEENT: Atraumatic, normocephalic Eyes: Anicteric, normal conjunctiva, extraocular movements grossly intact Neck: Supple Respiratory: Air movement improving but prolonged expiratory phase, slight increased work of breathing GI: Soft, nontender, nondistended Extremities: 1+ bilateral lower extremity pitting edema, improving Musculoskeletal: Moving all extremities Neuro: No overt focal neurological deficits Skin: No rashes appreciated Psych: Cooperative Assessment & Plan Assessment/Plan (1) Acute kidney injury: PLAN: Plan #SHADY/acute renal failure -Creatinine 3.48 in the ED with a BUN of 78 and a potassium of 5.7 -No previous labs and therefore do not have a baseline however he denied any previous problem with kidneys -Trend BMP -Was given IVF however given BNP and clinical picture may in fact be overloaded and creatinine did not improve with IVF, will hold at this time pending studies -Creatinine virtually unchanged this morning at 3.47, will obtain urine studies -Renal ultrasound with renal cysts and small stones versus prominent vessels on the left -Wall thickening of urinary bladder, unclear significance -09/05: Did improve some with diuresis, will increase diuresis to 40 IV twice daily today. -09/06: Creatinine slowly trending back down with diuresis however BUN continues to climb causing a non-anion gap metabolic acidemia. Given disproportionate BUN and dropping hemoglobin will check FOBT. Also check postvoid residual to assess for any urinary retention contributing #Non-anion gap metabolic acidemia -Suspect largely due to worsening uremia however would anticipate this will cause a high anion gap so Likely Multifactorial -Address underlying etiology #Hyperkalemia -Likely secondary to acute renal failure -5.7 on admission now 5.4 -09/05: Improving with diuresis and improving renal function -09/06: Continue to monitor, continue diuresis #normocytic anemia -On presentation hemoglobin 12.3 and is down trended and is now 9.6 despite diuresis which should cause volume contraction if anything -We will check FOBT especially given BUN continues to worsen with improvement kidney function seems to be disproportionate #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 -Lower extremity duplex with left popliteal and tibial peroneal trunk chronic DVT -Given proximal component patient qualifies for anticoagulation, do not see contraindication to this -Given they are chronic in nature do not feel he needs loaded and will start Eliquis 5 twice daily -09/05: Given platelets less than 50 today Eliquis held, will place order for SCDs -09/06: Platelets 54 today however given downtrending hemoglobin will check FOBT continue with SCDs prior to resuming full dose anticoagulation #Shortness of breath/bilateral pleural effusions/moderate pulmonary hypertension -BNP 906 in ED -Bilateral lower extremity edema, suspect overload -Chest x-ray with bibasilar pleural effusions and atelectasis with a 9 mm nodule density projecting over the left fifth anterior rib recommending CT be performed to exclude neoplasm, will order chest ct -We will additionally get echocardiogram -09/06: Echo from 09/04 with EF 60%, moderate mitral valve insufficiency, moderate pulmonary hypertension with small pericardial effusion and moderate-sized left pleural effusion and indeterminate diastolic dysfunction. Chest CT demonstrated bilateral pleural effusions right slightly greater than left with bibasilar atelectasis. Presently being diuresed. We will add daily weights and I's and O's. Has prolonged expiratory phase and do suspect he may have component of COPD, will start nebs, if no improvement can DC #Hypothyroidism -Continue Synthroid #Hyponatremia -Sodium 125 on presentation and 126 in a.m. -TSH 4.11 -We will check serum and urine osmolalities and urine lytes -09/05: Suspect this is secondary to overload, continue diuresis, sodium did slightly improved today -09/06: Continues to very slightly improved #Elevated troponin -Suspect type II given elevated BNP and renal failure -Original troponin 94 and down trended to 60 #hard of hearing -complicates care, medical course, recovery, and prognosis #DVT ppx: Held home dose of Eliquis due to platelets, DVT found is chronic, SCDs Jeanette Yo MD Time spent in the patient's overall evaluation,decision-making process, review of diagnostic data, adjustment of management, discussion with other providers, nursing nursing and ancillary staff involved in patient's care documentation, 40 minutes Charges/Coding Visit Charges Inpatient E&M: 67099 [facility] Hosp L3
[2022-09-06] MEDS: Cyanocobalamin 500 MCG Tablet 1000 MCG PO (08:17)
[2022-09-06] MEDS: Furosemide 40 MG/4 ML Vial IV ×2 (10:12→17:16)
[2022-09-06] MEDS: Metoprolol Tartrate 25 MG Tablet PO ×2 (10:14→21:46)
[2022-09-06] MEDS: Ipratropium/Albuterol Sulfate 3 ML AMPUL.NEB INHALATION ×2 (13:38→18:50)
[2022-09-06] MEDS: Nystatin Powder 15gm Bottle 1 APPLIC TOPICAL ×2 (14:30→21:47)
[2022-09-06] MEDS: 0.9% Saline Lock 10 ML Syringe IV (17:19)
[2022-09-06] MEDS: Acetaminophen 325 MG Tablet 650 MG PO (20:34)
[2022-09-07] VITALS (11 sets, daily range): BP systolic 146–168; BP diastolic 83–103; PULSE 61–91; RESP 16–20; TEMP 36.7–37; O2SAT 94–98; BMI 25.2
[2022-09-07] MEDS: Nystatin Powder 15gm Bottle 1 APPLIC TOPICAL ×3 (05:32→20:21)
[2022-09-07] MEDS: Glycerin/Hypromellose/PEG400 15 ml Bottle 1 DRP EACH EYE ×3 (05:32→20:21)
[2022-09-07] MEDS: Levothyroxine 25 MCG TABLET PO (05:33)
--- NOTE | 2022-09-07 07:01 | PCM.PN.HOSP ---
Reason for Visit Reason for Visit: Diagnoses Acute kidney failure, unspecified (09/03/22) Subjective Subjective Resting comfortably in bed, patient showered and had a haircut. Swelling seems to be improving Objective Data Objective Data Vital Signs: Vital Signs Temp Pulse Resp BP Pulse Ox O2 Del Method 98.2 F 61 18 146/83 H 94 Room Air 09/07/22 03:14 09/07/22 03:14 09/07/22 03:14 09/07/22 03:14 09/07/22 03:14 09/07/22 04:00 Oxygen Delivery Method Room Air Weight: 71.2 kg Body Mass Index (BMI) 25.2 Intake & Output: Intake and Output for Last 24 Hours 09/05/22 09/06/22 09/07/22 23:59 23:59 23:59 Intake Total 350 / 350 1600 / 1900 600 / 600 Output Total 100 / 100 Balance 250 / 250 1600 / 1900 600 / 600 Lab / Micro Data Result Diagrams: 09/07/22 07:10 09/07/22 06:05 Labs: Laboratory Results - last 24 hr 09/07/22 06:05: WBC Cancelled, Corrected WBC Cancelled, RBC Cancelled, Hgb Cancelled, Hct Cancelled, MCV Cancelled, MCH Cancelled, MCHC Cancelled, RDW Std Deviation Cancelled, RDW Coeff of Itzel Cancelled, Plt Count Cancelled, MPV Cancelled, Immature Gran % (Auto) Cancelled, Neut % (Auto) Cancelled, Lymph % (Auto) Cancelled, [place] % (Auto) Cancelled, Eos % (Auto) Cancelled, Baso % (Auto) Cancelled, Absolute Neuts (auto) Cancelled, Absolute Lymphs (auto) Cancelled, Total Counted Cancelled, Neutrophils % (Manual) Cancelled, Band Neutrophils % Cancelled, Lymphocytes % (Manual) Cancelled, Monocytes % (Manual) Cancelled, Eosinophils % (Manual) Cancelled, Basophils % (Manual) Cancelled, Metamyelocytes % Cancelled, Myelocytes % Cancelled, Promyelocytes % Cancelled, Blast Cells % Cancelled, Plasma Cell % (Manual) Cancelled, Other Cells % Cancelled, Nucleated RBC % Cancelled, Nucleated RBCs/100 WBC Cancelled, Differential Comment Cancelled, Diff Path Review Cancelled, Hypersegmented Neuts Cancelled, Atypical Lymphocytes Cancelled, Reactive Lymphocytes Cancelled, Smudge Cells Cancelled, Toxic Granulation Cancelled, Toxic Vacuolation Cancelled, Dohle Bodies Cancelled, Mariah Rods Cancelled, Platelet Estimate Cancelled, Plt Morphology Comment Cancelled, RBC Morphology Cancelled, Polychromasia Cancelled, Hypochromasia Cancelled, Poikilocytosis Cancelled, Basophilic Stippling Cancelled, Anisocytosis Cancelled, Microcytosis Cancelled, Macrocytosis Cancelled, Spherocytes Cancelled, Sickle Cells Cancelled, Target Cells Cancelled, Tear Drop Cells Cancelled, Ovalocytes Cancelled, Stomatocytes Cancelled, [place] Bodies Cancelled, [place] Cells Cancelled, Bite Cells Cancelled, Crenated Cell Cancelled, Acanthocytes (Spur) Cancelled, Rouleaux Cancelled, Schistocytes Cancelled Micro: Microbiology 09/06/22 23:25 Stool Stool Occult Blood (NAFISA) - Final Occult Blood Positive Physical Exam Narrative General: Alert, resting in bed HEENT: Atraumatic, normocephalic Eyes: Anicteric, normal conjunctiva, extraocular movements grossly intact Neck: Supple Respiratory: Air movement improving, no increased work of breathing, last all the bases GI: Soft, nontender, nondistended Extremities: Trace lower extremity edema, improving Musculoskeletal: Moving all extremities Neuro: No overt focal neurological deficits Skin: No rashes appreciated Psych: Cooperative Assessment & Plan Assessment/Plan (1) Acute kidney injury: PLAN: Plan #SHADY/acute renal failure -Creatinine 3.48 in the ED with a BUN of 78 and a potassium of 5.7 -No previous labs and therefore do not have a baseline however he denied any previous problem with kidneys -Trend BMP -Was given IVF however given BNP and clinical picture may in fact be overloaded and creatinine did not improve with IVF, will hold at this time pending studies -Creatinine virtually unchanged this morning at 3.47, will obtain urine studies -Renal ultrasound with renal cysts and small stones versus prominent vessels on the left -Wall thickening of urinary bladder, unclear significance -09/05: Did improve some with diuresis, will increase diuresis to 40 IV twice daily today. -09/06: Creatinine slowly trending back down with diuresis however BUN continues to climb causing a non-anion gap metabolic acidemia. Given disproportionate BUN and dropping hemoglobin will check FOBT. Also check postvoid residual to assess for any urinary retention contributing -09/07: Worsened today with increased hyperkalemia, continued hyponatremia, continued acidemia with BUN of 91, hyperkalemia cocktail, nephrology consult #normocytic anemia- FOBT+ -On presentation hemoglobin 12.3 and is down trended and is now 9.6 despite diuresis which should cause volume contraction if anything -We will check FOBT especially given BUN continues to worsen with improvement kidney function seems to be disproportionate -09/07: Downtrending hemoglobin, increasing BUN despite improving creatinine, FOBT positive. Will consult GI especially given he will need anticoagulation due to DVT. Continue to hold Eliquis #Non-anion gap metabolic acidemia -Suspect largely due to worsening uremia however would anticipate this will cause a high anion gap so Likely Multifactorial -Address underlying etiology #Hyperkalemia -Likely secondary to acute renal failure -5.7 on admission now 5.4 -09/05: Improving with diuresis and improving renal function -09/06: Continue to monitor, continue diuresis -09/07: Worse noted to 5.9, hyperkalemia protocol, nephrology consult due to patient failing present measures #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 -Lower extremity duplex with left popliteal and tibial peroneal trunk chronic DVT -Given proximal component patient qualifies for anticoagulation, do not see contraindication to this -Given they are chronic in nature do not feel he needs loaded and will start Eliquis 5 twice daily -09/05: Given platelets less than 50 today Eliquis held, will place order for SCDs -09/06: Platelets 54 today however given downtrending hemoglobin will check FOBT continue with SCDs prior to resuming full dose anticoagulation -09/07: FOBT positive with uptrending BUN and anemia and thrombocytopenia, continue to hold Eliquis, GI consult #Shortness of breath/bilateral pleural effusions/moderate pulmonary hypertension -BNP 906 in ED -Bilateral lower extremity edema, suspect overload -Chest x-ray with bibasilar pleural effusions and atelectasis with a 9 mm nodule density projecting over the left fifth anterior rib recommending CT be performed to exclude neoplasm, will order chest ct -We will additionally get echocardiogram -09/06: Echo from 09/04 with EF 60%, moderate mitral valve insufficiency, moderate pulmonary hypertension with small pericardial effusion and moderate-sized left pleural effusion and indeterminate diastolic dysfunction. Chest CT demonstrated bilateral pleural effusions right slightly greater than left with bibasilar atelectasis. Presently being diuresed. We will add daily weights and I's and O's. Has prolonged expiratory phase and do suspect he may have component of COPD, will start nebs, if no improvement can DC -09/07: Patient on Lasix and nebs, respiratory status seems to be improving #Hypothyroidism -Continue Synthroid #Hyponatremia -Sodium 125 on presentation and 126 in a.m. -TSH 4.11 -We will check serum and urine osmolalities and urine lytes -09/05: Suspect this is secondary to overload, continue diuresis, sodium did slightly improved today -09/06: Continues to very slightly improved -09/07: Fairly unchanged today #Elevated troponin -Suspect type II given elevated BNP and renal failure -Original troponin 94 and down trended to 60 #hard of hearing -complicates care, medical course, recovery, and prognosis #DVT ppx: Held home dose of Eliquis due to platelets, DVT found is chronic, SCDs Jeanette Yo MD Time spent in the patient's overall evaluation,decision-making process, review of diagnostic data, adjustment of management, discussion with other providers, nursing nursing and ancillary staff involved in patient's care documentation, 40 minutes Charges/Coding Visit Charges Inpatient E&M: 95397 [facility] Hosp L3
[2022-09-07 07:32] LABS: Absolute Lymphocyte Count 0.43 X10^3/uL (0.83-4.51); Absolute Neutrophil Count 2.8 X10^3/uL (2.0-7.7); Basophil# 0.02 X10^3/uL; Basophil% 0.5 % (0-1); Eosinophil# 0.11 X10^3/uL; Eosinophils% 2.8 % (0-5); Hematocrit 29.6 % (40-54); Hemoglobin 10.1 g/dL (13.0-16.5); Lymphocyte # 0.43 X10^3/ul (0.83-4.51); Mean Corp Hgb Conc 34.1 g/dL (32-36); Mean Corpuscular Hgb 30.7 pg (27.0-32.0); Mean Platelet Vol. 11.1 fl (6.2-12.0); Monocyte# 0.53 X10^3/uL; Monocyte% 13.6 % (0-10); NRBC Flagged by Analyzer 0 % (0-5); Neutrophil # 2.81 X10^3/uL (2.7-7.7); Neutrophil % 71.8 % (47-70); POSITIVE COUNT YES; POSITIVE DIFFERENTIAL YES; RBC Distribution Width CV 12.6 % (11.6-14.6); RBC Distribution Width SD 41.6 fl (35.1-43.9); Red Blood Count 3.29 M/mm3 (4.6-6.2); White Blood Count 3.9 K/mm3 (4.4-11.0)
[2022-09-07 07:54] LABS: Differential Indicated SCAN CRITERIA MET; Platelet Count 47 K/mm3 (150-450)
[2022-09-07 07:54] LABS: Anion Gap 9 (5-15); BUN 91 mg/dL (7-18); BUN/Creat Ratio 29.5 RATIO (10-20); Calcium,Total 8.1 mg/dL (8.5-10.1); Chloride 102 mmol/L (98-107); Creatinine, Serum 3.08 mg/dL (0.70-1.30); EST Glomerular Filtration Rate 21 mL/min (>60); Est Glom Filt Rate - Afr Amer 26 mL/min (>60); Estimated Creatinine Clearance 18.99 ml/min; Glucose 102 mg/dL (74-106); Potassium 5.9 mmol/L (3.5-5.1); Sodium Level 127 mmol/L (136-145)
[2022-09-07 08:48] LABS: HIV - WCH Non-Reactive (Nonreactive); Vitamin B12 1818 pg/mL (211-911); Vitamin D,25 Hydroxy 35.6 ng/mL
[2022-09-07] MEDS: Insulin Lispro 5 UNIT in Syringe 0 ML 6 UNIT IV (09:22)
[2022-09-07] MEDS: Furosemide 40 MG/4 ML Vial IV (09:23)
[2022-09-07] MEDS: Sodium Polystyrene Sulfonate 15 GM/60 ML UDC PO (09:23)
[2022-09-07 09:27] LABS: Platelet Estimate MKD DEC (ADEQ)
[2022-09-07] MEDS: Metoprolol Tartrate 25 MG Tablet PO ×2 (09:52→20:20)
[2022-09-07] MEDS: Menthol/Lanolin/Calamine/Znox 113 GM Tube 1 APPLIC TOPICAL ×2 (09:52→20:22)
[2022-09-07] MEDS: Cyanocobalamin 500 MCG Tablet 1000 MCG PO (09:52)
[2022-09-07] MEDS: Dextrose 50%-Water 25 GM/50 ML DISP.SYRIN IV (09:57)
--- NOTE | 2022-09-07 10:18 | EKG12_ITS ---
Test Reason : Blood Pressure : / mmHG Vent. Rate : 058 BPM Atrial Rate : 058 BPM P-R Int : 180 ms QRS Dur : 074 ms QT Int : 432 ms P-R-T Axes : 041 024 037 degrees QTc Int : 424 ms Sinus bradycardia Low voltage QRS Borderline ECG When compared with ECG of 03-SEP-2022 14:38, No significant change was found Confirmed by DILIA AGUILAR, SHELIA ([id number]), makeup editor SHERON HWANG ([id number]) on 09/09/2022 9:44:32 AM Referred By: MANJINDER Confirmed By:SHELIA DOBBS MD
[2022-09-07 11:06] LABS: Potassium 4.5 mmol/L (3.5-5.1)
[2022-09-07] MEDS: Ipratropium/Albuterol Sulfate 3 ML AMPUL.NEB INHALATION ×2 (11:28→19:33)
--- NOTE | 2022-09-07 11:59 | CON.PCM.RE_ITS ---
Documented by User: EMMANUELLE Segura 09/07/22 12:38 Assessment & Plan Assessment/Plan (1) Acute renal failure: (2) Acute hyponatremia: (3) Hyperkalemia: (4) Dyspnea on exertion: PLAN: Plan This is a 72-year-old male who presented to the emergency room with complaints of shortness of breath. Admitted for further evaluation and treatment. Chest x-ray showed bilateral pleural effusions, noted to have elevated BNP. Echo from 09/04: EF 60%, moderate pulmonary hypertension with small pericardial effusion, moderate size left pleural effusion, indeterminate diastolic dysfunction. CT of chest demonstrated bilateral pleural effusions right slightly greater than left. Patient initially received IV fluids at time of admission but is now being diuresed. Patient also noted to have Platelet 56 on admission, currently 47. Patient has chronic DVT. GI consulted for +FOBT, downtrending hemoglobin. Nephrology consulted as patient noted to have elevated serum creatinine, hyp erkalemia and hyponatremia. No baseline lab work at this time. Patient did have lab work in 2017, sodium, potassium and creatinine normal at that time. Sodium was 125 on admission, with diuresis sodium has slowly improved sodium today 127. Potassium was 5.7 on admission, improved to 5.1 yesterday and this morning potassium 5.9 with repeat potassium 4.5 today after receiving Kayexalate, calcium gluconate, dextrose and insulin. Creatinine 0.88 mg/dL in March 2017. Serum creatinine was 3.48 on admission, peaked 3.65, creatinine 2.83 yesterday and today his creatinine is at 3.08 mg/dL. Quite possibly this is baseline CKD. Attempting to obtain past medical history, medications and past labs from [facility]. Urine sodium on 09/04 <5, urine osmo 328. UA 500 protein, 150 occult blood. Serum osmo 287. Overall renal function has been remaining stable with diuresis. Possibly patient has component of cardiorenal syndrome physiology. It would be very helpful to be able to obtain past labs to de termine baseline renal function. We will obtain renal serologies, urine p/c ratio and SPEP. Hyperkalemia possibly from SHADY and dietary indiscretion. Low potassium diet restrictions added. Patient has not been on any CRIS or ARB's. Continue Lasix as ordered, 40 mg IV daily. There is no acute indication for WEIGHT INSPECTOR, potassium and acid-base acceptable, volume status though mildly hypervolemic is acceptable and no emergent need for dialysis at this time. Renal US no hydro. Further orders forthcoming as hospitalization evolves. Thank you for allowing us to participate in the care of Mr. Dillon. HPI Consult Data Date of Consult: 09/07/22 HPI Narrative HPI Narrative: SAMSON DILLON, is a 72 M who presented to the emergency room on September 03 with complaints of shortness of breath. Work-up in the emergency room showed potassium 5.7, creatinine 3.48, sodium 125, elevated BNP and bilateral pleural effusions. Patient was admitted for further evaluation and treatment. Nephrology consulted for hyperkalemia, hyponatremia, worsening kidney function. 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 Patient reports that he follows with the [facility]. Patient states that he does not think he has been seen by cocoa milling machine operator in the past iat the [facility]. Patient does not know his home medications. He denies any NSAIDs. Patient denies any recent hematuria or dysuria before coming to the hospital. No new rash. Per patient no new medications. Patient reports breathing has improved. Denies any N/V/D and reports appetite poor in hospital. PFS Home Medications carboxymethylcellulose sodium 0.5 % eye drops 1 drp EACH EYE TID dry eyes 09/05/22 [History Last Taken Unknown] cholecalciferol (vitamin D3) 50 mcg (2,000 unit) tablet 50 mcg PO DAILY supple ment 09/05/22 [History Last Taken Unknown] cyanocobalamin (vitamin B-12) 1,000 mcg tablet 1,000 mcg PO DAILY supplement 09/05/22 [History Last Taken Unknown] levothyroxine 25 mcg tablet 25 mcg PO DAILY thyroid 09/05/22 [History Last Taken Unknown] loratadine 10 mg tablet 10 mg PO DAILY seasonal allergies 09/05/22 [History Last Taken Unknown] metoprolol tartrate 25 mg tablet 25 mg PO BID bp 09/05/22 [History Last Taken Unknown] trospium 20 mg tablet 20 mg PO BID bladder 09/05/22 [History Last Taken Unknown] Allergy/AdvReac Type Severity Reaction Status Date / Time No Known Allergies Allergy Verified 09/03/22 13:14 Social History Smoking Status: Former smoker ROS ROS Narrative Difficult to obtain as patient is hard of hearing. As per HPI. Physical Exam Narrative Alert and oriented x3, no apparent distress. Hard of hearing S1, S2, RRR Lung sounds clear anteriorly, no rales or rhonchi noted. Diminished breath sounds posterior bases. On Room air. Abdomen is soft, nontender, positive bowel sounds Edema noted bilateral lower legs Lab / Micro Data Result Diagrams: 09/08/22 06:10 09/08/22 06:10 Labs: Laboratory Results - last 24 hr 09/06/22 04:40: Vitamin B12 1818 H, Vitamin D 25-Hydroxy 35.6, HIV 1&2 Antibody Non-Reactive 09/07/22 06:05: WBC Cancelled, Corrected WBC Cancelled, RBC Cancelled, Hgb Cancelled, Hct Cancelled, MCV Cancelled, MCH Cancelled, MCHC Cancelled, RDW Std Deviation Cancelled, RDW Coeff of Itzel Cancelled, Plt Count Cancelled, MPV Cancelled, Immature Gran % (Auto) Cancelled, Neut % (Auto) Cancelled, Lymph % (Auto) Cancelled, [place] % (Auto) Cancelled, Eos % (Auto) Cancelled, Baso % (Auto) Cancelled, Absolute Neuts (auto) Cancelled, Absolute Lymphs (auto) Cancelled, Total Counted Cancelled, Neutrophils % (Manual) Cancelled, Band Neutrophils % Cancelled, Lymphocytes % (Manual) Cancelled, Monocytes % (Manual) Cancelled, Eosinophils % (Manual) Cancelled, Basophils % (Manual) Cancelled, Metamyelocytes % Cancelled, Myelocytes % Cancelled, Promyelocytes % Cancelled, Blast Cells % Cancelled, Plasma Cell % (Manual) Cancelled, Other Cells % Cancelled, Nucleated RBC % Cancelled, Nucleated RBCs/100 WBC Cancelled, Differential Comment Cancel led, Diff Path Review Cancelled, Hypersegmented Neuts Cancelled, Atypical Lymphocytes Cancelled, Reactive Lymphocytes Cancelled, Smudge Cells Cancelled, Toxic Granulation Cancelled, Toxic Vacuolation Cancelled, Dohle Bodies Cancelled, Mariah Rods Cancelled, Platelet Estimate Cancelled, Plt Morphology Comment Cancelled, RBC Morphology Cancelled, Polychromasia Cancelled, Hypochromasia Cancelled, Poikilocytosis Cancelled, Basophilic Stippling Cancelled, Anisocytosis Cancelled, Microcytosis Cancelled, Macrocytosis Cancelled, Spherocytes Cancelled, Sickle Cells Cancelled, Target Cells Cancelled, Tear Drop Cells Cancelled, Ovalocytes Cancelled, Stomatocytes Cancelled, [place] Bodies Cancelled, [place] Cells Cancelled, Bite Cells Cancelled, Crenated Cell Cancelled, Acanthocytes (Spur) Cancelled, Rouleaux Cancelled, Schistocytes Cancelled 09/07/22 06:05: Sodium 127 L, Potassium 5.9 H, Chloride 102, Carbon Dioxide 16.0 L, Anion Gap 9, BUN 91 H, Creatinine 3.08 H, Estim Creat Clear Calc 18.99, Est GFR (MDRD) Af Amer 26 L, Est GFR (MDRD) Non-Af 21 L, BUN/Creatinine Ratio 29.5 H , Glucose 102, Calcium 8.1 L 09/07/22 07:10: WBC 3.9 L, RBC 3.29 L, Hgb 10.1 L, Hct 29.6 L, MCV 90.0, MCH 30.7, MCHC 34.1, RDW Std Deviation 41.6, RDW Coeff of Itzel 12.6, Plt Count 47 L*, MPV 11.1, Immature Gran % (Auto) 0.300, Neut % (Auto) 71.8 H, Lymph % (Auto) 11.0 L, [place] % (Auto) 13.6 H, Eos % (Auto) 2.8, Baso % (Auto) 0.5, Absolute Neuts (auto) 2.8, Absolute Lymphs (auto) 0.43 L, Nucleated RBC % 0, Differential Comment COMMENT, Diff Path Review August foll, Platelet Estimate MKD 09/07/22 10:29: Potassium 4.5 Micro: Microbiology 09/06/22 23:25 Stool Stool Occult Blood (NAFISA) - Final Occult Blood Positive Documented by User: Dr. Cb Cuba MD 06/06/23 12:40 Assessment & Plan Assessment/Plan (1) Acute renal failure: (2) Acute hyponatremia: (3) Hyperkalemia: (4) Dyspnea on exertion: PLAN: Plan This is a 72-year-old male who presented to the emergency room with complaints of shortness of breath. Admitted for further evaluation and treatment. Chest x-ray showed bilateral pleural effusions, noted to have elevated BNP. Echo from 09/04: EF 60%, moderate pulmonary hypertension with small pericardial effusion, moderate size left pleural effusion, indeterminate diastolic dysfunction. CT of chest demonstrated bilateral pleural effusions right slightly greater than left. Patient initially received IV fluids at time of admission but is now being diuresed. Patient also noted to have Platelet 56 on admission, currently 47. Patient has chronic DVT. GI consulted for +FOBT, downtrending hemoglobin. Ne phrology consulted as patient noted to have elevated serum creatinine, hyperkalemia and hyponatremia. No baseline lab work at this time. Patient did have lab work in 2017, sodium, potassium and creatinine normal at that time. Sodium was 125 on admission, with diuresis sodium has slowly improved sodium today 127. Potassium was 5.7 on admission, improved to 5.1 yesterday and this morning potassium 5.9 with repeat potassium 4.5 today after receiving Kayexalate, calcium gluconate, dextrose and insulin. Creatinine 0.88 mg/dL in March 2017. Serum creatinine was 3.48 on admission, peaked 3.65, creatinine 2.83 yesterday and today his creatinine is at 3.08 mg/dL. Quite possibly this is baseline CKD. Attempting to obtain past medical history, medications and past labs from [facility]. Urine sodium on 09/04 <5, urine osmo 328. UA 500 protein, 150 occult blood. Serum osmo 287. Overall renal function has been remaining stable with diuresis. Possibly patient has component of cardiorenal syndrome physiology. It would be very helpful to be able to obtain past labs to determine baseline renal function. We will obtain renal serologies, urine p/c ratio and SPEP. Hyperkalemia possibly from SHADY and dietary indiscretion. Low potassium diet restrictions added. Patient has not been on any CRIS or ARB's. Continue Lasix as ordered, 40 mg IV daily. There is no acute indication for WEIGHT INSPECTOR, potassium and acid-base acceptable, volume status though mildly hypervolemic is acceptable and no emergent need for dialysis at this time. Renal US no hydro. Further orders forthcoming as hospitalization evolves. Thank you for allowing us to participate in the care of Mr. Dillon. Discussed with CONFERENCE INTERPRETER. No baseline creatinine available. We will try to call [facility] to get previous labs, records. HPI Consult Data Date of Consult: 09/08/22 [facility], [facility] Home Medications carboxymethylcellulose sodium 0.5 % eye drops 1 drp EACH EYE TID dry eyes 09/05/22 [History Last Taken Unknown] cholecalciferol (vitamin D3) 50 mcg (2,000 unit) tablet 50 mcg PO DAILY supplement 09/05/22 [History Last Taken Unknown] cyanocobalamin (vitamin B-12) 1,000 mcg tablet 1,000 mcg PO DAILY supplement 09/05/22 [History Last Taken Unknown] levothyroxine 25 mcg tablet 25 mcg PO DAILY thyroid 09/05/22 [History Last Taken Unknown] loratadine 10 mg tablet 10 mg PO DAILY seasonal allergies 09/05/22 [History Last Taken Unknown] metoprolol tartrate 25 mg tablet 25 mg PO BID bp 09/05/22 [History Last Taken Unknown] trospium 20 mg tablet 20 mg PO BID bladder 09/05/22 [History Last Taken Unknown] Allergy/AdvReac Type Severity Reaction Status Date / Time No Known Allergies Allergy Verified 09/03/22 13:14 Social History Smoking Status: Former smoker Lab / Micro Data Result Diagrams: 09/08/22 06:10 09/08/22 06:10
[2022-09-07 13:19] LABS: Pathologist Review Reviewed
[2022-09-07 13:19] LABS: Pathologist Review Reviewed
--- NOTE | 2022-09-07 15:13 | CASEMGMT ---
ELDA BRAMBILA into pt to discuss therapy. Pt states he does not feel like he needs any home or outpt therapy. He states he did steps with therapy and feels he can make it into his home. Pt aware ELDA BRAMBILA will check back with him tomorrow.
[2022-09-07 18:32] LABS: Protein, Urine (Random) 832.9 mg/dL (<11.9); Protein:Creat Ratio 4958 mg/g CRE (0-200)
[2022-09-07] MEDS: Acetaminophen 325 MG Tablet 650 MG PO (20:17)
[2022-09-08] VITALS (8 sets, daily range): BP systolic 146–169; BP diastolic 82–90; PULSE 73–89; RESP 16–18; TEMP 36.6–37.2; O2SAT 96–98; BMI 25.2
--- NOTE | 2022-09-08 02:43 | NURSING ---
[place] cath irrigated with 500cc of sterile water. color now faint pink. sm amount of clots retrieved.
[2022-09-08] MEDS: Acetaminophen 325 MG Tablet 650 MG PO ×2 (04:08→20:46)
--- NOTE | 2022-09-08 04:38 | NURSING ---
Inserted [address] way [place] per order under sterile field with pharmacist in charge owner. noted big clot came out. CBi ongoing.
[2022-09-08] MEDS: 0.9% Saline Lock 10 ML Syringe IV (05:28)
[2022-09-08] MEDS: Nystatin Powder 15gm Bottle 1 APPLIC TOPICAL ×3 (05:28→20:28)
[2022-09-08] MEDS: Glycerin/Hypromellose/PEG400 15 ml Bottle 1 DRP EACH EYE ×3 (05:28→20:27)
[2022-09-08] MEDS: Levothyroxine 25 MCG TABLET PO (05:31)
[2022-09-08 06:09] LABS: HEPATITIS B SURFACE AG Negative (Negative); Haptoglobin 133 mg/dL (34-355); Hep C Antibodies Non Reactive (Non Reactive); Hepatitis A IgM Antibody Negative (Negative); Hepatitis B Core AB IgM Negative (Negative)
[2022-09-08 06:58] LABS: Absolute Lymphocyte Count 0.26 X10^3/uL (0.83-4.51); Absolute Neutrophil Count 4.8 X10^3/uL (2.0-7.7); Basophil# 0.02 X10^3/uL; Basophil% 0.4 % (0-1); Eosinophil# 0.05 X10^3/uL; Eosinophils% 0.9 % (0-5); Hematocrit 27.8 % (40-54); Hemoglobin 9.6 g/dL (13.0-16.5); Lymphocyte # 0.26 X10^3/ul (0.83-4.51); Lymphocyte % 4.6 % (19-41); Mean Corp Hgb Conc 34.5 g/dL (32-36); Mean Corpuscular Hgb 31.2 pg (27.0-32.0); Mean Corpuscular Volume 90.3 fL (80-94); Mean Platelet Vol. 11.5 fl (6.2-12.0); Monocyte# 0.52 X10^3/uL; Monocyte% 9.2 % (0-10); NRBC Flagged by Analyzer 0 % (0-5); Neutrophil % 84.7 % (47-70); POSITIVE COUNT YES; POSITIVE DIFFERENTIAL YES; Platelet Count 55 K/mm3 (150-450); RBC Distribution Width CV 12.7 % (11.6-14.6); RBC Distribution Width SD 41.5 fl (35.1-43.9); Red Blood Count 3.08 M/mm3 (4.6-6.2); White Blood Count 5.7 K/mm3 (4.4-11.0)
[2022-09-08 07:08] LABS: Differential Indicated SCAN CRITERIA MET
[2022-09-08 07:31] LABS: ALB/GLOB Ratio 0.8 RATIO (0.9-2.4); AST(SGOT) 9 U/L (15-37); Alanine Aminotransfer ALT/SGPT 22 U/L (16-61); Albumin, Serum 2.1 g/dL (3.2-5.0); Alkaline Phosphatase 71 U/L (45-117); Anion Gap 9 (5-15); BUN 94 mg/dL (7-18); BUN/Creat Ratio 30.7 RATIO (10-20); Calcium,Total 8.3 mg/dL (8.5-10.1); Chloride 103 mmol/L (98-107); Creatinine, Serum 3.06 mg/dL (0.70-1.30); EST Glomerular Filtration Rate 21 mL/min (>60); Est Glom Filt Rate - Afr Amer 26 mL/min (>60); Estimated Creatinine Clearance 19.11 ml/min; Globulin 2.7 g/dL (2.2-4.2); Glucose 107 mg/dL (74-106); Potassium 5.1 mmol/L (3.5-5.1); Protein, Total 4.8 g/dL (6.4-8.2); Sodium Level 129 mmol/L (136-145)
[2022-09-08] MEDS: Ipratropium/Albuterol Sulfate 3 ML AMPUL.NEB INHALATION ×3 (07:35→19:10)
--- NOTE | 2022-09-08 07:42 | PN.HOSP_ITS ---
Reason for Visit Reason for Visit: Diagnoses Acute kidney failure, unspecified (09/03/22) Subjective Subjective Got up and was walking with home care and was very happy to be doing so Objective Data Objective Data Vital Signs: Vital Signs Temp Pulse Resp BP Pulse Ox O2 Del Method 98 F 75 18 158/88 H 98 Room Air 09/08/22 02:00 09/08/22 07:35 09/08/22 07:35 09/08/22 02:00 09/08/22 07:35 09/08/22 07:35 Oxygen Delivery Method Room Air Weight: 71.1 kg Body Mass Index (BMI) 25.2 Intake & Output: Intake and Output for Last 24 Hours 09/06/22 09/07/22 09/08/22 23:59 23:59 23:59 Intake Total 1600 / 1900 1989 Output Total 500 / 650 300 / 300 Balance 1600 / 0 1490 / 1340 -300 / -300 Lab / Micro Data Result Diagrams: 09/08/22 06:10 09/08/22 06:10 Labs: Laboratory Results - last 24 hr 09/05/22 06:46: Diff Path Review Reviewed 09/06/22 04:40: Diff Path Review Reviewed 09/06/22 04:40: Vitamin B12 1818 H, Vitamin D 25-Hydroxy 35.6, HIV 1&2 Antibody Non-Reactive 09/06/22 04:40: Haptoglobin 133, Hepatitis A IgM Ab Negative, Hep Bs Antigen Ne gative, Hep B Core IgM Ab Negative, Hepatitis C Ab (EIA) Non Reactive, Hep C Ab Comment Comment 09/07/22 06:05: Sodium 127 L, Potassium 5.9 H, Chloride 102, Carbon Dioxide 16.0 L, Anion Gap 9, BUN 91 H, Creatinine 3.08 H, Estim Creat Clear Calc 18.99, Est GFR (MDRD) Af Amer 26 L, Est GFR (MDRD) Non-Af 21 L, BUN/Creatinine Ratio 29.5 H , Glucose 102, Calcium 8.1 L 09/07/22 07:10: WBC 3.9 L, RBC 3.29 L, Hgb 10.1 L, Hct 29.6 L, MCV 90.0, MCH 30.7, MCHC 34.1, RDW Std Deviation 41.6, RDW Coeff of Itzel 12.6, Plt Count 47 L*, MPV 11.1, Immature Gran % (Auto) 0.300, Neut % (Auto) 71.8 H, Lymph % (Auto) 11.0 L, [place] % (Auto) 13.6 H, Eos % (Auto) 2.8, Baso % (Auto) 0.5, Absolute Neuts (auto) 2.8, Absolute Lymphs (auto) 0.43 L, Nucleated RBC % 0, Differential Comment COMMENT, Diff Path Review August foll, Platelet Estimate MKD 09/07/22 10:29: Potassium 4.5 09/07/22 17:54: U Random Total Protein 832.9 H, Urine Creatinine 168.00, Protein/Creatinin Ratio 4958 H 09/08/22 06:10: WBC 5.7, RBC 3.08 L, Hgb 9.6 L, Hct 27.8 L, MCV 90.3, MCH 31.2, MCHC 34.5, RDW Std Deviation 41.5, RDW Coeff of Itzel 12.7, Plt Count 55 L, MPV 11.5, Immature Gran % (Auto) 0.200, Neut % (Auto) 84.7 H, Lymph % (Auto) 4.6 L, [place] % (Auto) 9.2, Eos % (Auto) 0.9, Baso % (Auto) 0.4, Absolute Neuts (auto) 4.8, Absolute Lymphs (auto) 0.26 L, Nucleated RBC % 0 09/08/22 06:10: Sodium 129 L, Potassium 5.1, Chloride 103, Carbon Dioxide 17.0 L , Anion Gap 9, BUN 94 H, Creatinine 3.06 H, Estim Creat Clear Calc 19.11, Est GFR (MDRD) Af Amer 26 L, Est GFR (MDRD) Non-Af 21 L, BUN/Creatinine Ratio 30.7 H , Glucose 107 H, Calcium 8.3 L, Total Bilirubin 0.50, AST 9 L, ALT 22, Alkaline Phosphatase 71, Total Protein 4.8 L, Albumin 2.1 L, Globulin 2.7, Albumin/Globulin Ratio 0.8 L Micro: Microbiology 09/06/22 23:25 Stool Stool Occult Blood (NAFISA) - Final Occult Blood Positive Physical Exam Narrative General: Alert, up and walking HEENT: Atraumatic, normocephalic Eyes: Anicteric, normal conjunctiva, extraocular movements grossly intact Neck: Supple Respiratory: No respiratory distress GI: Soft, nontender, nondistended Extremities: Edema has been improving Musculoskeletal: Moving all extremities Neuro: No overt focal neurological deficits Skin: No rashes appreciated Psych: Cooperative Assessment & Plan Assessment/Plan (1) Acute kidney injury: PLAN: Plan #SHADY/acute renal failure/urinary retention/hematuria -Creatinine 3.48 in the ED with a BUN of 78 and a potassium of 5.7 -No previous labs and therefore do not have a baseline however he denied any previous problem with kidneys -Trend BMP -Was given IVF however given BNP and clinical picture may in fact be overloaded and creatinine did not improve with IVF, will hold at this time pending studies -Creatinine virtually unchanged this morning at 3.47, will obtain urine studies -Renal ultrasound with renal cysts and small stones versus prominent vessels on the left -Wall thickening of urinary bladder, unclear significance -09/05: Did improve some with diuresis, will increase diuresis to 40 IV twice daily today. -09/06: Creatinine slowly trending back down with diuresis however BUN continues to climb causing a non-anion gap metabolic acidemia. Given disproportionate BUN and dropping hemoglobin will check FOBT. Also check postvoid residual to assess for any urinary retention contributing -09/07: Worsened today with increased hyperkalemia, continued hyponatremia, continued acidemia with BUN of 91, hyperkalemia cocktail, nephrology consult -09/08: Patient was retaining urine after 2 post void trials and Quinteros was placed, was passing small clots and red urine and had three-way Quinteros inserted with irrigation and a large clot. No urology coverage this week so urology not consulted, do not feel he needs urgently transferred at this time. Will consider Noncon CT abdomen to assess for any stones in his kidneys that may be contributing to hematuria as they required stones on ultrasound but not definitive, unable to get contrasted CT to assess for any additional pathology due to kidney function. Poor urine output after initial Quinteros placement, will hold Lasix pending nephro input as he may be becoming intravascularly depleted. Patient's autoimmune work-up pending. #normocytic anemia- FOBT+ -On presentation hemoglobin 12.3 and is down trended and is now 9.6 despite diuresis which should cause volume contraction if anything -We will check FOBT especially given BUN continues to worsen with improvement kidney function seems to be disproportionate -09/07: Downtrending hemoglobin, increasing BUN despite improving creatinine, FOBT positive. Will consult GI especially given he will need anticoagulation due to DVT. Continue to hold Eliquis -09/08: Pending GI eval #Non-anion gap metabolic acidemia -Suspect largely due to worsening uremia however would anticipate this will cause a high anion gap so Likely Multifactorial -Address underlying etiology #Hyperkalemia -Likely secondary to acute renal failure -5.7 on admission now 5.4 -09/05: Improving with diuresis and improving renal function -09/06: Continue to monitor, continue diuresis -09/07: Worse noted to 5.9, hyperkalemia protocol, nephrology consult due to patient failing present measures -09/08: Repeat was within normal limits, potassium on upper end of normal today bu t not elevated, continue to address underlying etiology, low potassium diet #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 -Lower extremity duplex with left popliteal and tibial peroneal trunk chronic DVT -Given proximal component patient qualifies for anticoagulation, do not see contraindication to this -Given they are chronic in nature do not feel he needs loaded and will start Eliquis 5 twice daily -09/05: Given platelets less than 50 today Eliquis held, will place order for SCDs -09/06: Platelets 54 today however given downtrending hemoglobin will check FOBT continue with SCDs prior to resuming full dose anticoagulation -09/07: FOBT positive with uptrending BUN and anemia and thrombocytopenia, continue to hold Eliquis, GI consult #Shortness of breath/bilateral pleural effusions/moderate pulmonary hypertension -BNP 906 in ED -Bilateral lower extremity edema, suspect overload -Chest x-ray with bibasilar pleural effusions and atelectasis with a 9 mm nodule density projecting over the left fifth anterior rib recommending CT be performed to exclude neoplasm, will order chest ct -We will additionally get echocardiogram -09/06: Echo from 09/04 with EF 60%, moderate mitral valve insufficiency, moderate pulmonary hypertension with small pericardial effusion and moderate-sized left pleural effusion and indeterminate diastolic dysfunction. Chest CT demonstrated bilateral pleural effusions right slightly greater than left with bibasilar atelectasis. Presently being diuresed. We will add daily weights and I's and O 's. Has prolonged expiratory phase and do suspect he may have component of COPD, will start nebs, if no improvement can DC -09/07: Patient on Lasix and nebs, respiratory status seems to be improving -09/08: Respiratory status stable, holding a.m. Lasix dose #Hypothyroidism -Continue Synthroid #Hyponatremia -Sodium 125 on presentation and 126 in a.m. -TSH 4.11 -We will check serum and urine osmolalities and urine lytes -09/05: Suspect this is secondary to overload, continue diuresis, sodium did slig htly improved today -09/06: Continues to very slightly improved -09/07: Fairly unchanged today #Elevated troponin -Suspect type II given elevated BNP and renal failure -Original troponin 94 and down trended to 60 #hard of hearing -complicates care, medical course, recovery, and prognosis #DVT ppx: Held home dose of Eliquis due to platelets, DVT found is chronic, SCDs Jeanette Yo MD Time spent in the patient's overall evaluation,decision-making process, review of diagnostic data, adjustment of management, discussion with other providers, nursing nursing and ancillary staff involved in patient's care documentation, 30 minutes Charges/Coding Visit Charges Inpatient E&M: 81059 Subs Hosp L2
[2022-09-08 07:51] LABS: Platelet Estimate MKD DEC (ADEQ)
[2022-09-08] MEDS: Metoprolol Tartrate 25 MG Tablet PO ×2 (09:53→20:26)
[2022-09-08] MEDS: Menthol/Lanolin/Calamine/Znox 113 GM Tube 1 APPLIC TOPICAL ×2 (09:53→20:27)
[2022-09-08] MEDS: Cyanocobalamin 500 MCG Tablet 1000 MCG PO (09:53)
--- NOTE | 2022-09-08 10:01 | PN.RENAL_ITS ---
Documented by User: EMMANUELLE Segura 09/08/22 10:19 Subjective Subjective Resting quietly. Very hard of hearing. Alert and oriented but sleepy. Quinteros placed yesterday, developed hematuria with clots now on CBI. Objective Data Objective Data Vital Signs: Vital Signs Temp Pulse Resp BP Pulse Ox O2 Del Method 98.9 F 78 18 169/90 H 98 Room Air 09/08/22 08:10 09/08/22 09:53 09/08/22 08:10 09/08/22 08:10 09/08/22 08:10 09/08/22 08:10 Oxygen Delivery Method Room Air Weight: 71.1 kg Body Mass Index (BMI) 25.2 Intake & Output: Intake and Output for Last 24 Hours 09/06/22 09/07/22 09/08/22 23:59 23:59 23:59 Intake Total 1600 / 1900 1989 Output Total 500 / 650 1974 Balance 1600 / 1900 1490 / 1340 -1974 Lab / Micro Data Result Diagrams: 09/08/22 06:10 09/08/22 06:10 Labs: Laboratory Results - last 24 hr 09/05/22 06:46: Diff Path Review Reviewed 09/06/22 04:40: Diff Path Review Reviewed 09/06/22 04:40: Haptoglobin 133, Hepatitis A IgM Ab Negative, Hep Bs Antigen Negative, Hep B Core IgM Ab Negative, Hepatitis C Ab (EIA) Non Reactive, Hep C Ab Comment Comment 09/07/22 10:29: Potassium 4.5 09/07/22 17:54: U Random Total Protein 832.9 H, Urine Creatinine 168.00, Protein/Creatinin Ratio 4958 H 09/08/22 06:10: WBC 5.7, RBC 3.08 L, Hgb 9.6 L, Hct 27.8 L, MCV 90.3, MCH 31.2, MCHC 34.5, RDW Std Deviation 41.5, RDW Coeff of Itzel 12.7, Plt Count 55 L, MPV 11.5, Immature Gran % (Auto) 0.200, Neut % (Auto) 84.7 H, Lymph % (Auto) 4.6 L, [place] % (Auto) 9.2, Eos % (Auto) 0.9, Baso % (Auto) 0.4, Absolute Neuts (auto) 4.8, Absolute Lymphs (auto) 0.26 L, Nucleated RBC % 0, Differential Comment COMMENT, Platelet Estimate MKD 09/08/22 06:10: Sodium 129 L, Potassium 5.1, Chloride 103, Carbon Dioxide 17.0 L , Anion Gap 9, BUN 94 H, Creatinine 3.06 H, Estim Creat Clear Calc 19.11, Est GFR (MDRD) Af Amer 26 L, Est GFR (MDRD) Non-Af 21 L, BUN/Creatinine Ratio 30.7 H , Glucose 107 H, Calcium 8.3 L, Total Bilirubin 0.50, AST 9 L, ALT 22, Alkaline Phosphatase 71, Total Protein 4.8 L, Albumin 2.1 L, Globulin 2.7, Albumin/Globulin Ratio 0.8 L Micro: Microbiology 09/06/22 23:25 Stool Stool Occult Blood (NAFISA) - Final Occult Blood Positive Physical Exam Narrative Alert and oriented x3, no apparent distress. Hard of hearing S1, S2, RRR Lung sounds clear anteriorly, no rales or rhonchi noted. On Room air. Abdomen is soft, nontender, positive bowel sounds trace ddema noted bilateral lower legs Indwelling Quinteros catheter with clear urine in tubing and bag. On CBI slow drip Assessment & Plan Assessment/Plan (1) Acute renal failure: (2) Acute hyponatremia: (3) Hyperkalemia: (4) Dyspnea on exertion: PLAN: Plan 72-year-old male who presented to the emergency room with complaints of shortness of breath. Nephrology consulted as patient noted to have elevated serum creatinine, hyperkalemia and hyponatremia. -Renal insufficiency, unknown if SHADY vs CKD: trying to get past labs from [place]. Baseline serum creatinine unknown. Labs to review other than this admission is from March 2017 serum creatinine 0.88 mg/dL. On admission, 09/03 serum creatinine 3.48, peaked 3.65 and today his creatinine is 3.06 mg/dL. Possibly this is baseline. Potassium 5.7 on admission, today his potassium is 5.1. Continue on renal diet restrictions. On admission patient initially received IV fluids, then on Lasix IV twice daily. Diuretics stopped yesterday. Urine sodium on 09/04 <5, urine osmo 328. UA 500 protein, 150 occult blood. Serum osmo 287. Overall renal function remained stable with diuresis. Urine protein creatinine ratio almost 5 g. Renal serologies sent yesterday. Pending results patient may need kidney biopsy. Renal ultrasound no hydro. Patient had PVR yesterday which showed 400 mL urine. Quinteros placed with 400 urine out. Patient then developed clot and hematuria now has CBI. At this time there is no acute indication for [employer], potassium and acid-base acceptable as well as volume status acceptable with no emergent need for dialysis at this time. We will continue to monitor renal function closely. -Hypervolemic hyponatremia improved with diuresis. Sodium 125 on admission and today sodium 129. - Chest x-ray showed bilateral pleural effusions, noted to have elevated BNP. Echo from 09/04: EF 60%, moderate pulmonary hypertension with small pericardial effusion, moderate size left pleural effusion, indeterminate diastolic dysfuncti on. CT of chest bilateral pleural effusions right slightly greater than left. Patient initially received IV fluids at time of admission, then on intermittent lasix IV. - Platelet 56 on admission, currently 55. Patient has chronic DVT, eliquis on hold. GI consulted for +FOBT, downtrending hemoglobin. Documented by User: Dr. Cb Cuba MD 09/08/22 12:40 Objective Data Lab / Micro Data Result Diagrams: 09/08/22 06:10 09/08/22 06:10 Assessment & Plan Assessment/Plan (1) Acute renal failure: (2) Acute hyponatremia: (3) Hyperkalemia: (4) Dyspnea on exertion: PLAN: Plan 72-year-old male who presented to the emergency room with complaints of shortness of breath. Nephrology consulted as patient noted to have elevated serum creatinine, hyperkalemia and hyponatremia. -Renal insufficiency, unknown if SHADY vs CKD: trying to get past labs from [place]. Baseline serum creatinine unknown. Labs to review other than this admission is from March 2017 serum creatinine 0.88 mg/dL. On admission, 09/03 serum creatinine 3.48, peaked 3.65 and today his creatinine is 3.06 mg/dL. Possibly this is baseline. Potassium 5.7 on admission, today his potassium is 5.1. Continue on renal diet restrictions. On admission patient initially received IV fluids, then on Lasix IV twice daily. Diuretics stopped yesterday. Urine sodium on 09/04 <5, urine osmo 328. UA 500 protein, 150 occult blood. Serum osmo 287. Overall renal function remained stable with diuresis. Urine protein creatinine ratio almost 5 g. Renal serologies sent yesterday. Pending results patient may need kidney biopsy. Renal ultrasound no hydro. Patient had PVR yesterday which showed 400 mL urine. Quinteros placed with 400 urine out. Patient then developed clot and hematuria now has CBI. At this time there is no acute indication for [employer]ERSON, potassium and acid-base acceptable as well as volume status acceptable with no emergent need for dialysis at this time. We will continue to monitor renal function closely. -Hypervolemic hyponatremia improved with diuresis. Sodium 125 on admission and today sodium 129. - Chest x-ray showed bilateral pleural effusions, noted to have elevated BNP. Echo from 09/04: EF 60%, moderate pulmonary hypertension with small pericardial effusion, moderate size left pleural effusion, indeterminate diastolic dysfunction. CT of chest bilateral pleural effusions right slightly greater than left. Patient initially received IV fluids at time of admission, then on intermittent lasix IV. - Platelet 56 on admission, currently 55. Patient has chronic DVT, eliquis on hold. GI consulted for +FOBT, downtrending hemoglobin. Patient was seen and examined independently. With a hearing aid, he is fairly conversational. He he goes to [facility], geriatrics clinic.. I called [facility] and to give him an extension [phone] for geriatrics clinic. Tried calling that extension multiple times, it says system is not functional and I was unable to leave a voicemail. I have tried multiple times with no response. It seems he did not have any kidney problems that he knows of. He does have prostrate problems which was treated medically. No surgical interventions in the past. I do not have a baseline creatinine. This admission his creatinine is around 3.0-3.5 with no significant change for the last several days. He also has hematuria in the sample before Quinteros catheter was placed. Has 4 g of proteinuria. Unfortunately without a baseline creatinine I am unable to make a determination if this is CKD or SHADY. Given his massive hematuria and proteinuria he will likely need a kidney biopsy. Explained to him that he has 2 options, 1 is to get transferred to [facility] and get all the work-up over there since all of his records are from there. Here I send serologies but will likely take several days to come back. We could always do a kidney biopsy here if he is agreeable. He says he will think about it. If he decides to stay back, I will order a kidney biopsy for tomorrow. Other issues, thrombocytopenia. Stable. Hematuria which started after Quinteros catheter placement yesterday. Currently on bladder irrigation. Discussed with hospitalist.
--- NOTE | 2022-09-08 11:41 | WOUNDNOTE ---
Pt ambulated short distance in the villalobos. patient back into bed per request. pt tolerated well. pt steady with use of cane.
--- NOTE | 2022-09-08 13:06 | EX.PCM.CON.G ---
HPI Consult Data Date of Consult: 09/08/22 HPI Narrative Reason for Consultation: elevated BUN, Anemia and Blood in stool HPI Narrative: SAMSON ROBERTS, is a 72 M who presenteed to the emergency room at [facility] [place] for evaluation of shortness of breath which she states has been going on for several months.? Patient was noted to be short of breath at a bank today and the bank notified his friend who brought him to the emergency room for evaluation.? Patient is hard of hearing, he does not know any of his medications, and he is an overall poor informant.? Patient did not tell this examiner that he had been short of breath, this was relayed to the emergency room physician however. Labs obtained in the emergency room included a CBC which showed a normal white blood cell count, hemoglobin was 12.3, platelet count of 78k, sodium was 125, potassium was 5.7, creatinine was 3.48, and BUN was 78.? Patient's beta natruretic peptid was elevated at 906, patient's troponin was 94, TSH was 4.11.? Patient's chest x-ray showed bibasilar pleural effusions with adjacent subsegmental atelectasis, there was a 9 mm nodular density projecting over the left fifth anterior rib and, it was recommended that a CT and follow-up be performed to exclude neoplasm.? Patient's bladder scan in the emergency room resulted in 162 cc of urine. Chest x-ray showed bilateral pleural effusions, noted to have elevated BNP.? Echo from 09/04: EF 60%, moderate pulmonary hypertension with small pericardial effusion, moderate size left pleural effusion, indeterminate diastolic dysfunction.? CT of chest demonstrated bilateral pleural effusions right slightly greater than left.?? I was consulted because his BUN keeps going up and he dropped his hemoglobin. They checked his stools and he was fecal occult positive for blood. PFSH Home Medications carboxymethylcellulose sodium 0.5 % eye drops 1 drp EACH EYE TID dry eyes 09/05/22 [History Last Taken Unknown] cholecalciferol (vitamin D3) 50 mcg (2,000 unit) tablet 50 mcg PO DAILY supplement 09/05/22 [History Last Taken Unknown] cyanocobalamin (vitamin B-12) 1,000 mcg tablet 1,000 mcg PO DAILY supplement 09/05/22 [History Last Taken Unknown] levothyroxine 25 mcg tablet 25 mcg PO DAILY thyroid 09/05/22 [History Last Taken Unknown] loratadine 10 mg tablet 10 mg PO DAILY seasonal allergies 09/05/22 [History Last Taken Unknown] metoprolol tartrate 25 mg tablet 25 mg PO BID bp 09/05/22 [History Last Taken Unknown] trospium 20 mg tablet 20 mg PO BID bladder 09/05/22 [History Last Taken Unknown] Allergy/AdvReac Type Severity Reaction Status Date / Time No Known Allergies Allergy Verified 09/03/22 13:14 Social History Smoking Status: Former smoker ROS ROS Narrative Difficult to obtain as patient is hard of hearing. As per HPI. Physical Exam Narrative General: Alert, answering questions appropriately HEENT: Atraumatic, normocephalic Eyes: Anicteric, normal conjunctiva, extraocular movements grossly intact Neck: Supple Respiratory: No respiratory distress, decent airflow GI: Soft, nontender, nondistended Extremities: Trace to 1+ lower extremity edema pitting Musculoskeletal: Moving all extremities Neuro: No overt focal neurological deficits Skin: No rashes appreciated Psych: Cooperative Lab / Micro Data Result Diagrams: 09/09/22 05:45 09/09/22 05:45 Labs: Laboratory Results - last 24 hr 09/07/22 07:10: Diff Path Review Reviewed 09/09/22 05:45: WBC 7.0, RBC 2.96 L, Hgb 9.1 L, Hct 26.9 L, MCV 90.9, MCH 30.7, MCHC 33.8, RDW Std Deviation 42.4, RDW Coeff of Itzel 12.8, Plt Count 51 L, MPV 11.7, Immature Gran % (Auto) 0.600, Neut % (Auto) 81.1 H, Lymph % (Auto) 6.7 L, [place] % (Auto) 10.5 H, Eos % (Auto) 0.7, Baso % (Auto) 0.4, Absolute Neuts (auto) 5.7, Absolute Lymphs (auto) 0.47 L, Nucleated RBC % 0, Differential Comment SCANNED, Platelet Estimate MKD DEC 09/09/22 05:45: Sodium 129 L, Potassium 5.0, Chloride 103, Carbon Dioxide 17.0 L, Anion Gap 9, BUN 103 H*, Creatinine 3.27 H, Estim Creat Clear Calc 17.88, Est GFR (MDRD) Af Amer 24 L, Est GFR (MDRD) Non-Af 20 L, BUN/Creatinine Ratio 31.5 H, Glucose 101, Calcium 7.9 L, Total Bilirubin 0.50, AST 9 L, ALT 16, Alkaline Phosphatase 66, Total Protein 4.4 L, Albumin 1.9 L, Globulin 2.5, Albumin/Globulin Ratio 0.8 L Assessment & Plan Assessment/Plan (1) Anemia: (2) Thrombocytopenia: (3) Hyponatremia: PLAN: Plan 72-year-old gentleman with lethargy, mildly altered mental status and shortness of breath discovered to have bilateral pleural effusions, acute renal failure, bicytopenia with low hemoglobin and platelet being worked up by nephrology for renal failure. -Anemia Patient seems to have anemia chronic disease in the setting of possible iron deficiency anemia versus acute blood loss anemia. With his bicytopenia he should be evaluated for cirrhosis especially in the setting of hyponatremia. He will undergo an upper endoscopy to see if there are any signs of chronic liver disease such as portal gastropathy, varices, gastric antral vascular ectasia. Although which can be associated with acute and chronic blood loss anemia. He was explained alternatives, risk, benefits including outstanding bleeding, infection, sepsis, perforation, need for emergent . He will have an ASA of 3. Charges/Coding Visit Charges Inpatient E&M: 55874 Init Hosp L2
[2022-09-08 14:19] LABS: Pathologist Review Reviewed
--- NOTE | 2022-09-08 14:30 | CASEMGMT ---
Social Work SW met with pt and introduced self and role of SW. SW spoke with pt regarding discharge plan. Pt stating that he does not feel he is strong enough to return home alone at this time. SW spoke with pt regarding options and pt is open to SNF placement. Pt inquiring about [facility]. SW reviewed information with pt regarding this facility. SW also spoke with pt regarding local SNF covered under Medicare Benefit. A list of SNF providers including quality and resource use data and consistent with the patient?s preferred geographic region, medical needs, and insurance network were provided from the [employer] Guide. Pt would like time to consider options prior to making a decision. SW will followup. VM left with CHANTEL [place] to discuss pt service connection. Will await return call home. BRITTANIE Diehl
--- NOTE | 2022-09-08 17:00 | CASEMGMT ---
Social Work Phone call with CHANTEL Grace drug abuse social worker at [facility] ([phone] [id number]). Pt is 100% service connected and can receive intermediate level of care at [facility] covered at 100%. SW inquired about VA facilities in [place], [facility] with the following facilities being VA connected: [facility], [facility], [facility]. [facility] [place] and Lesly confirms this would be an option for pt however there is a 1 year waiting list. SW can go to any facility under his medicare benefit for skilled care. SW will follow up with pt. Plan: BRITTANIE Osborn
[2022-09-09] VITALS (12 sets, daily range): BP systolic 110–155; BP diastolic 66–93; PULSE 68–86; RESP 16–18; TEMP 36.1–37; O2SAT 93–100; BMI 26.3
--- NOTE | 2022-09-09 | COLBX_PTH ---
PATIENT: SAMSON ROBERTS LOC: MS3 U#:[id number] AGE/SX: 72/M [place] [facility]: Dr. Alex Taylor MD : 1950 BED: 1 DIS: 09/18/2022 SPEC #: [id number] RECD: 09/09/22 13:48 STATUS: DEX REQ #: [id number] LIBAN: 09/09/22 00:[address]: Sam Newby DEPT: SURGICAL PATHOLOGY RECD BY: Leonardo Dominguez ENTERED: 09/10/22 09:23 SP TYPE: COLON BX OTHR DR: MD Dr. Cb Campbell MD Dr. Mark Tereletsky, DO Dr. Paige Pierce, MD [facility] Tissues: Duodenum, NOS Procedures: Surgery Specimen Level IV Comments: @ Ordering doctor for SUIV edited from to @ by DARSHAN at 09/10/22 1400 @ Submitting doctor edited from to @ by RGOOD at 09/10/22 1400 HEADER OPERATION: EGD ([facility]), biopsy PRE-OP DIAGNOSIS: Anemia, thrombocytopenia, hyponatremia TISSUE SUBMITTED: Biopsy of duodenal ulcer MICROSCOPIC DIAGNOSIS Duodenal ulcer, biopsy: Fragments of duodenal mucosa with focal ulceration, acute and chronic inflammation. See comment. ALESHIA:judi 09/11/2022 COMMENT Correlation with clinical, endoscopic findings and appropriate follow up are necessary. MICROSCOPIC DESCRIPTION Slides are reviewed. GROSS DESCRIPTION Received in fixative is one container labeled with the patient's name and designated duodenal ulcer biopsy. The specimen consists of two irregular fragments of light almanza soft tissue that in aggregate measure 0.6 x 0.3 x 0.1 cm. The specimen is totally submitted in one cassette. / ALESHIA:judi 09/10/2022 TC:2 CPT: 71069
[2022-09-09] MEDS: Levothyroxine 25 MCG TABLET PO (05:47)
[2022-09-09] MEDS: Glycerin/Hypromellose/PEG400 15 ml Bottle 1 DRP EACH EYE ×3 (05:47→22:52)
[2022-09-09] MEDS: Nystatin Powder 15gm Bottle 1 APPLIC TOPICAL ×3 (05:47→22:56)
[2022-09-09 06:10] LABS: Absolute Lymphocyte Count 0.47 X10^3/uL (0.83-4.51); Absolute Neutrophil Count 5.7 X10^3/uL (2.0-7.7); Basophil# 0.03 X10^3/uL; Basophil% 0.4 % (0-1); Eosinophil# 0.05 X10^3/uL; Eosinophils% 0.7 % (0-5); Hematocrit 26.9 % (40-54); Hemoglobin 9.1 g/dL (13.0-16.5); Lymphocyte # 0.47 X10^3/ul (0.83-4.51); Lymphocyte % 6.7 % (19-41); Mean Corp Hgb Conc 33.8 g/dL (32-36); Mean Corpuscular Hgb 30.7 pg (27.0-32.0); Mean Corpuscular Volume 90.9 fL (80-94); Mean Platelet Vol. 11.7 fl (6.2-12.0); Monocyte# 0.74 X10^3/uL; Monocyte% 10.5 % (0-10); NRBC Flagged by Analyzer 0 % (0-5); Neutrophil # 5.69 X10^3/uL (2.7-7.7); Neutrophil % 81.1 % (47-70); POSITIVE COUNT YES; POSITIVE DIFFERENTIAL YES; Platelet Count 51 K/mm3 (150-450); RBC Distribution Width CV 12.8 % (11.6-14.6); RBC Distribution Width SD 42.4 fl (35.1-43.9); Red Blood Count 2.96 M/mm3 (4.6-6.2)
[2022-09-09 06:15] LABS: Differential Indicated SCAN CRITERIA MET
[2022-09-09 06:27] LABS: Differential Comment SCANNED; Platelet Estimate MKD DEC (ADEQ)
[2022-09-09 06:51] LABS: ALB/GLOB Ratio 0.8 RATIO (0.9-2.4); AST(SGOT) 9 U/L (15-37); Alanine Aminotransfer ALT/SGPT 16 U/L (16-61); Albumin, Serum 1.9 g/dL (3.2-5.0); Alkaline Phosphatase 66 U/L (45-117); Anion Gap 9 (5-15); BUN 103 mg/dL (7-18); BUN/Creat Ratio 31.5 RATIO (10-20); Calcium,Total 7.9 mg/dL (8.5-10.1); Chloride 103 mmol/L (98-107); Creatinine, Serum 3.27 mg/dL (0.70-1.30); EST Glomerular Filtration Rate 20 mL/min (>60); Est Glom Filt Rate - Afr Amer 24 mL/min (>60); Estimated Creatinine Clearance 17.88 ml/min; Globulin 2.5 g/dL (2.2-4.2); Glucose 101 mg/dL (74-106); Protein, Total 4.4 g/dL (6.4-8.2); Sodium Level 129 mmol/L (136-145)
[2022-09-09] MEDS: Ipratropium/Albuterol Sulfate 3 ML AMPUL.NEB INHALATION ×2 (07:33→19:35)
--- NOTE | 2022-09-09 09:07 | PCM.PN.REN ---
Documented by User: EMMANUELLE Segura 09/09/22 09:29 Subjective Subjective Resting quietly. Hard of hearing but alert and oriented. Hears better with hearing aid. No overnight events. Urine yellow this morning. Objective Data Objective Data Vital Signs: Vital Signs Temp Pulse Resp BP Pulse Ox O2 Del Method 97.9 F 86 18 149/90 H 99 Room Air 09/09/22 08:00 09/09/22 08:00 09/09/22 08:00 09/09/22 08:00 09/09/22 08:00 09/09/22 08:00 Oxygen Delivery Method Room Air Weight: 74.3 kg Body Mass Index (BMI) 26.3 Intake & Output: Intake and Output for Last 24 Hours 09/07/22 09/08/22 09/09/22 23:59 23:59 23:59 Intake Total 1989 / 1989 1350 / 1350 Output Total 500 / 650 08821 / 78168 Balance 1490 / 1340 -99622 / -89122 Lab / Micro Data Result Diagrams: 09/09/22 05:45 09/09/22 05:45 Labs: Laboratory Results - last 24 hr 09/07/22 07:10: Diff Path Review Reviewed 09/09/22 05:45: WBC 7.0, RBC 2.96 L, Hgb 9.1 L, Hct 26.9 L, MCV 90.9, MCH 30.7, MCHC 33.8, RDW Std Deviation 42.4, RDW Coeff of Itzel 12.8, Plt Count 51 L, MPV 11.7, Immature Gran % (Auto) 0.600, Neut % (Auto) 81.1 H, Lymph % (Auto) 6.7 L, [place] % (Auto) 10.5 H, Eos % (Auto) 0.7, Baso % (Auto) 0.4, Absolute Neuts (auto) 5.7, Absolute Lymphs (auto) 0.47 L, Nucleated RBC % 0, Differential Comment SCANNED, Platelet Estimate MKD DEC 09/09/22 05:45: Sodium 129 L, Potassium 5.0, Chloride 103, Carbon Dioxide 17.0 L, Anion Gap 9, BUN 103 H*, Creatinine 3.27 H, Estim Creat Clear Calc 17.88, Est GFR (MDRD) Af Amer 24 L, Est GFR (MDRD) Non-Af 20 L, BUN/Creatinine Ratio 31.5 H, Glucose 101, Calcium 7.9 L, Total Bilirubin 0.50, AST 9 L, ALT 16, Alkaline Phosphatase 66, Total Protein 4.4 L, Albumin 1.9 L, Globulin 2.5, Albumin/Globulin Ratio 0.8 L Micro: Microbiology 09/06/22 23:25 Stool Stool Occult Blood (NAFISA) - Final Occult Blood Positive Physical Exam Narrative Alert and oriented x3, no apparent distress. Hard of hearing S1, S2, RRR Lung sounds clear anteriorly, no rales or rhonchi noted. On Room air. Abdomen is soft, nontender, positive bowel sounds trace ddema noted bilateral lower legs Indwelling Quinteros catheter with clear urine in tubing and bag. On CBI slow drip Assessment & Plan Assessment/Plan (1) Acute renal failure: (2) Acute hyponatremia: (3) Hyperkalemia: (4) Dyspnea on exertion: PLAN: Plan 72-year-old male who presented to the emergency room with complaints of shortness of breath. Nephrology consulted as patient noted to have elevated serum creatinine, hyperkalemia and hyponatremia. Past medical history (obtained from ID) includes hypertension, hypothyroidism, prostate carcinoma (diagnosed 2016) on active surveillance, no surgical intervention. -SHADY, unclear cause. Able to obtain past records from ID: serum creatinine 1.0 mg/dL July 01, 2022 and August 09, 2020 serum creatinine 1.1 mg/dL. On admission, 09/03 serum creatinine 3.48, peaked 3.65 and today his creatinine is 3.27 mg/dL, BUN 103 (diuretics stopped 09/07). At this time there is no acute indication for SPEECH CORRECTION CONSULTANT, potassium and acid-base as well as volume status acceptable. Patient is nonoliguric. Renal serologies sent and pending. Discussed with patient recommend kidney biopsy. His creatinine was 1 mg/dL few months ago. He now presents with worsening renal function, hematuria (in urine sample before Quinteros placed, then developed persistent hematuria which started after Quinteros catheter placement) and almost 5gm proteinuria. Renal ultrasound no hydro. Patient is agreeable for kidney biopsy. Consult placed for CT-guided kidney biopsy. -Hyperkalemia on admission, possibly from SHADY and dietary indiscretion. Potassium 5.0 today. Continue on low potassium diet. -Hypervolemic hyponatremia improved with diuresis. Sodium 125 on admission and today sodium 129. Patient has normal baseline sodium per ID labs. - Chest x-ray showed bilateral pleural effusions, noted to have elevated BNP. Echo from 09/04: EF 60%, moderate pulmonary hypertension with small pericardial effusion, moderate size left pleural effusion, indeterminate diastolic dysfunction. CT of chest bilateral pleural effusions right slightly greater than left. Patient initially received IV fluids at time of admission, then on intermittent lasix IV. -Chronic thrombocytopenia. Platelet 56 on admission, currently 51. Past records from ID: July 01, 2022 platelet 88 and March 14, 2021 platelet 78. Patient has chronic DVT, eliquis on hold. GI consulted for +FOBT, downtrending hemoglobin. - discussed with Dr. Yo Documented by User: Dr. Cb Cuba MD 09/09/22 12:09 Objective Data Lab / Micro Data Result Diagrams: 09/09/22 05:45 09/09/22 05:45 Assessment & Plan Assessment/Plan (1) Acute renal failure: (2) Acute hyponatremia: (3) Hyperkalemia: (4) Dyspnea on exertion: PLAN: Plan 72-year-old male who presented to the emergency room with complaints of shortness of breath. Nephrology consulted as patient noted to have elevated serum creatinine, hyperkalemia and hyponatremia. Past medical history (obtained from ID) includes hypertension, hypothyroidism, prostate carcinoma (diagnosed 2017) on active surveillance, no surgical intervention. -SHADY, unclear cause. Able to obtain past records from ID: serum creatinine 1.0 mg/dL July 01, 2022 and August 09, 2020 serum creatinine 1.1 mg/dL. On admission, 09/03 serum creatinine 3.48, peaked 3.65 and today his creatinine is 3.27 mg/dL, BUN 103 (diuretics stopped 09/07). At this time there is no acute indication for SPEECH CORRECTION CONSULTANT, potassium and acid-base as well as volume status acceptable. Patient is nonoliguric. Renal serologies sent and pending. Discussed with patient recommend kidney biopsy. His creatinine was 1 mg/dL few months ago. He now presents with worsening renal function, hematuria (in urine sample before Quinteros placed, then developed persistent hematuria which started after Quinteros catheter placement) and almost 5gm proteinuria. Renal ultrasound no hydro. Patient is agreeable for kidney biopsy. Consult placed for CT-guided kidney biopsy. -Hyperkalemia on admission, possibly from SHADY and dietary indiscretion. Potassium 5.0 today. Continue on low potassium diet. -Hypervolemic hyponatremia improved with diuresis. Sodium 125 on admission and today sodium 129. Patient has normal baseline sodium per ID labs. - Chest x-ray showed bilateral pleural effusions, noted to have elevated BNP. Echo from 09/04: EF 60%, moderate pulmonary hypertension with small pericardial effusion, moderate size left pleural effusion, indeterminate diastolic dysfunction. CT of chest bilateral pleural effusions right slightly greater than left. Patient initially received IV fluids at time of admission, then on intermittent lasix IV. -Chronic thrombocytopenia. Platelet 56 on admission, currently 51. Past records from ID: July 01, 2022 platelet 88 and March 14, 2021 platelet 78. Patient has chronic DVT, eliquis on hold. GI consulted for +FOBT, downtrending hemoglobin. - discussed with Dr. Srinath villanueva GAS STATION SERVICE ATTENDANT. dw Hospitalist. baseline cr was normal. ordered biopsy. should have a prelim read by wednesday if done today.
--- NOTE | 2022-09-09 09:52 | PN.HOSP_ITS ---
Reason for Visit Reason for Visit: Diagnoses Hypo-osmolality and hyponatremia (09/03/22) Hyperkalemia (09/03/22) Acute kidney failure, unspecified (09/03/22) Other forms of dyspnea (09/03/22) Subjective Subjective There had been discussion about patient having biopsy here versus transfer, patient would like to have biopsy here and is open to transfer in the future if necessary. Reports feeling somewhat generally unwell today but does not report problems with his breathing Objective Data Objective Data Vital Signs: Vital Signs Temp Pulse Resp BP Pulse Ox O2 Del Method 97.9 F 86 18 149/90 H 99 Room Air 09/09/22 08:00 09/09/22 08:00 09/09/22 08:00 09/09/22 08:00 09/09/22 08:00 09/09/22 08:30 Oxygen Delivery Method Room Air Weight: 74.3 kg Body Mass Index (BMI) 26.3 Intake & Output: Intake and Output for Last 24 Hours 09/07/22 09/08/22 09/09/22 23:59 23:59 23:59 Intake Total 1989 / 1989 1350 / 1350 Output Total 500 / 650 77565 / 20861 Balance 1490 / 1340 -99539 / -82289 Lab / Micro Data Result Diagrams: 09/09/22 05:45 09/09/22 05:45 Labs: Laboratory Results - last 24 hr 09/07/22 07:10: Diff Path Review Reviewed 09/09/22 05:45: WBC 7.0, RBC 2.96 L, Hgb 9.1 L, Hct 26.9 L, MCV 90.9, MCH 30.7, MCHC 33.8, RDW Std Deviation 42.4, RDW Coeff of Itzel 12.8, Plt Count 51 L, MPV 11.7, Immature Gran % (Auto) 0.600, Neut % (Auto) 81.1 H, Lymph % (Auto) 6.7 L, [place] % (Auto) 10.5 H, Eos % (Auto) 0.7, Baso % (Auto) 0.4, Absolute Neuts (auto) 5.7, Absolute Lymphs (auto) 0.47 L, Nucleated RBC % 0, Differential Comment SCANNED, Platelet Estimate MKD DEC 09/09/22 05:45: Sodium 129 L, Potassium 5.0, Chloride 103, Carbon Dioxide 17.0 L , Anion Gap 9, BUN 103 H*, Creatinine 3.27 H, Estim Creat Clear Calc 17.88, Est GFR (MDRD) Af Amer 24 L, Est GFR (MDRD) Non-Af 20 L, BUN/Creatinine Ratio 31.5 H , Glucose 101, Calcium 7.9 L, Total Bilirubin 0.50, AST 9 L, ALT 16, Alkaline Phosphatase 66, Total Protein 4.4 L, Albumin 1.9 L, Globulin 2.5, [place] min/Globulin Ratio 0.8 L Micro: Microbiology 09/06/22 23:25 Stool Stool Occult Blood (NAFISA) - Final Occult Blood Positive Physical Exam Narrative General: Alert, answering questions appropriately HEENT: Atraumatic, normocephalic Eyes: Anicteric, normal conjunctiva, extraocular movements grossly intact Neck: Supple Respiratory: No respiratory distress, decent airflow GI: Soft, nontender, nondistended Extremities: Trace to 1+ lower extremity edema pitting Musculoskeletal: Moving all extremities Neuro: No overt focal neurological deficits Skin: No rashes appreciated Psych: Cooperative Assessment & Plan Assessment/Plan (1) Acute renal failure: (2) Acute hyponatremia: (3) Hyperkalemia: (4) Dyspnea on exertion: (5) Acute kidney injury: PLAN: Plan #SHADY/acute renal failure/urinary retention/hematuria -Creatinine 3.48 in the ED with a BUN of 78 and a potassium of 5.7 -No previous labs and therefore do not have a baseline however he denied any previous problem with kidneys -Trend BMP -Was given IVF however given BNP and clinical picture may in fact be overloaded and creatinine did not improve with IVF, will hold at this time pending studies -Creatinine virtually unchanged this morning at 3.47, will obtain urine studies -Renal ultrasound with renal cysts and small stones versus prominent vessels on the left -Wall thickening of urinary bladder, unclear significance -/3: Did improve some with diuresis, will increase diuresis to 40 IV twice daily today. -09/06: Creatinine slowly trending back down with diuresis however BUN continues to climb causing a non-anion gap metabolic acidemia. Given disproportionate BUN and dropping hemoglobin will check FOBT. Also check postvoid residual to assess for any urinary retention contributing -09/07: Worsened today with increased hyperkalemia, continued hyponatremia, continued acidemia with BUN of 91, hyperkalemia cocktail, nephrology consult -09/08: Patient was retaining urine after 2 post void trials and Quinteros was placed, was passing small clots and red urine and had three-way Quinteros inserted with irrigation and a large clot. No urology coverage this week so urology not consulted, do not feel he needs urgently transferred at this time. Will consider Noncon CT abdomen to assess for any stones in his kidneys that may be contributing to hematuria as they required stones on ultrasound but not definitive, unable to get contrasted CT to assess for any additional pathology due to kidney function. Poor urine output after initial Quinteros placement, will hold Lasix pending nephro input as he may be becoming intravascularly depleted. Patient's autoimmune work-up pending. -09/09: Patient agreeable to biopsy at our institution, was made n.p.o. last night in the event he was agreeable, this has been ordered. Discussed with nephrology #normocytic anemia- FOBT+ -On presentation hemoglobin 12.3 and is down trended and is now 9.6 despite diuresis which should cause volume contraction if anything -We will check FOBT especially given BUN continues to worsen with improvement kidney function seems to be disproportionate -09/07: Downtrending hemoglobin, increasing BUN despite improving creatinine, FOBT positive. Will consult GI especially given he will need anticoagulation due to DVT. Continue to hold Eliquis -09/08: Pending GI eval #Non-anion gap metabolic acidemia -Suspect largely due to worsening uremia however would anticipate this will cause a high anion gap so Likely Multifactorial -Address underlying etiology #Hyperkalemia -Likely secondary to acute renal failure -5.7 on admission now 5.4 -6/3: Improving with diuresis and improving renal function -09/06: Continue to monitor, continue diuresis -09/07: Worse noted to 5.9, hyperkalemia protocol, nephrology consult due to patient failing present measures -09/08: Repeat was within normal limits, potassium on upper end of normal today but not elevated, continue to address underlying etiology, low potassium diet #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 -Lower extremity duplex with left popliteal and tibial peroneal trunk chronic DVT -Given proximal component patient qualifies for anticoagulation, do not see contraindication to this -Given they are chronic in nature do not feel he needs loaded and will start Eliquis 5 twice daily -09/05: Given platelets less than 50 today Eliquis held, will place order for SCDs -09/06: Platelets 54 today however given downtrending hemoglobin will check FOBT continue with SCDs prior to resuming full dose anticoagulation -09/07: FOBT positive with uptrending BUN and anemia and thrombocytopenia, continue to hold Eliquis, GI consult #Shortness of breath/bilateral pleural effusions/moderate pulmonary hypertension -BNP 906 in ED -Bilateral lower extremity edema, suspect overload -Chest x-ray with bibasilar pleural effusions and atelectasis with a 9 mm nodule density projecting over the left fifth anterior rib recommending CT be performed to exclude neoplasm, will order chest ct -We will additionally get echocardiogram -09/06: Echo from 09/04 with EF 60%, moderate mitral valve insufficiency, moderate pulmonary hypertension with small pericardial effusion and moderate-sized left pleural effusion and indeterminate diastolic dysfunction. Chest CT demonstrated bilateral pleural effusions right slightly greater than left with bibasilar atelectasis. Presently being diuresed. We will add daily weights and I's and O's. Has prolonged expiratory phase and do suspect he may have component of COPD, will start nebs, if no improvement can DC -09/07: Patient on Lasix and nebs, respiratory status seems to be improving -09/08: Respiratory status stable, Lasix dose held -09/09: Held Lasix with present kidney function but if deemed appropriate to resume from nephrology standpoint agreeable to do so #Hypothyroidism -Continue Synthroid #Hyponatremia -Sodium 125 on presentation and 126 in a.m. -TSH 4.11 -We will check serum and urine osmolalities and urine lytes -09/05: Suspect this is secondary to overload, continue diuresis, sodium did slightly improved today -09/06: Continues to very slightly improved -09/07: Fairly unchanged today #Elevated troponin -Suspect type II given elevated BNP and renal failure -Original troponin 94 and down trended to 60 #hard of hearing -complicates care, medical course, recovery, and prognosis #DVT ppx: Held home dose of Eliquis due to platelets, DVT found is chronic, SCDs Jeanette Yo MD Time spent in the patient's overall evaluation,decision-making process, review of diagnostic data, adjustment of management, discussion with other providers, nursing nursing and ancillary staff involved in patient's care documentation, 30 minutes Charges/Coding Visit Charges Inpatient E&M: 79855 Subs Hosp L2
[2022-09-09] MEDS: Menthol/Lanolin/Calamine/Znox 113 GM Tube 1 APPLIC TOPICAL ×2 (11:58→22:55)
[2022-09-09] MEDS: Lactated Ringers 1,000 ML 15 ML IV (12:31)
[2022-09-09 13:08] LABS: ANTINUCLEAR ANTIBODIES DIRECT Negative (Negative); Anti-Centromere B Ab <0.2 AI (0.0-0.9); Anti-Chromatin <0.2 AI (0.0-0.9); Anti-Jo <0.2 AI (0.0-0.9); Anti-Scleroderma-70 AB <0.2 AI (0.0-0.9); Anti-dsDNA Ab <1 IU/mL (0-9); RNP Ab <0.2 AI (0.0-0.9); SJOGREN'S Anti-SS-A test < 0.2 AI (0.0-0.9); SJOGREN'S Anti-SS-B test < 0.2 AI (0.0-0.9); Smith Ab <0.2 AI (0.0-0.9)
--- NOTE | 2022-09-09 13:41 | OP.CCLET_ITS ---
09/09/2022 [facility] Re : Upper GI endoscopy procedure for [facility] This procedure was performed on Friday, September 09, 2022. My impressions and recommendations are as follows: Impressions : - Normal esophagus. - Erythematous mucosa in the gastric body. - Multiple oozing duodenal ulcers with pigmented material. Injected. Treated with a heater probe. Biopsied. Recommendations : - - Resume previous diet. - Continue present medications. - Await pathology results. My findings are described in the full procedure note, which is enclosed. If I can be of further assistance, please feel free to contact me at . Sincerely, Sam Newby, 09/09/2022 1:40:56 PM This report has been signed electronically.
--- NOTE | 2022-09-09 13:41 | OP.EGD_ITS ---
Patient Name: Atif Dillon Procedure Date: 09/09/2022 1:13 PM Date of : 1950 Age: 72 Procedure: Upper GI endoscopy Indications: Iron deficiency anemia Providers: Sam Newby DO Medicines: Monitored Anesthesia Care Patient Profile: This is a 72 year old male. Refer to note in patient chart for documentation of history and physical. Patient has symptoms of chronic epigastric abdominal pain and chronic nausea. Complications: No immediate complications. Procedure: Pre-Anesthesia Assessment: - Prior to the procedure, a History and Physical was performed, and patient medications and allergies were reviewed. The risks and benefits of the procedure and the sedation options and risks were discussed with the patient. All questions were answered and informed consent was obtained. Patient identification and proposed procedure were verified by the physician in the pre-procedure area. Mental Status Examination: alert and oriented. Airway Examination: normal oropharyngeal airway and neck mobility. Respiratory Examination: clear to auscultation. CV Examination: normal. Prophylactic Antibiotics: The patient does not require prophylactic antibiotics. Prior Anticoagulants: The patient has taken no previous anticoagulant or antiplatelet agents. ASA Grade Assessment: III - A patient with severe systemic disease. After reviewing the risks and benefits, the patient was deemed in satisfactory condition to undergo the procedure. The anesthesia plan was to use monitored anesthesia care (MAC). Immediately prior to administration of medications, the patient was re-assessed for adequacy to receive sedatives. The heart rate, respiratory rate, oxygen saturations, blood pressure, adequacy of pulmonary ventilation, and response to care were monitored throughout the procedure. The physical status of the patient was re-assessed after the procedure. After obtaining informed consent, the endoscope was passed under direct vision. Throughout the procedure, the patient's blood pressure, pulse, and oxygen saturations were monitored continuously. The Endoscope was introduced through the mouth, and advanced to the second part of duodenum. The upper GI endoscopy was accomplished without difficulty. The patient tolerated the procedure well. Scope In: 1:24:47 PM Scope Out: 1:27:45 PM Total Procedure Duration Time 0 hours 2 minutes 58 seconds Findings: The examined esophagus was normal. Patchy mildly erythematous mucosa without bleeding was found in the gastric body. Many oozing linear duodenal ulcers with pigmented material were found in the duodenal bulb. The largest lesion was 2 mm in largest dimension. Area was successfully injected with 5 mL of a 1:10,000 solution of epinephrine for drug delivery. Coagulation for hemostasis using heater probe was successful. Estimated blood loss was minimal. Biopsies were taken with a cold forceps for histology. Verification of patient identification for the specimen was done. Estimated blood loss was minimal. Impression: - Normal esophagus. - Erythematous mucosa in the gastric body. - Multiple oozing duodenal ulcers with pigmented material. Injected. Treated with a heater probe. Biopsied. Recommendation: - - Resume previous diet. - Continue present medications. - Await pathology results. Procedure Code(s): --- Professional --- 50421, 59, Esophagogastroduodenoscopy, flexible, transoral; with control of bleeding, any method 13978, 59, Esophagogastroduodenoscopy, flexible, transoral; with directed submucosal injection(s), any substance 67010, Esophagogastroduodenoscopy, flexible, transoral; with biopsy, single or multiple CPT copyright 2017 [employer]. All rights reserved. The codes documented in this report are preliminary and upon hydroponics grower review may be revised to meet current compliance requirements. Sam Newby DO 09/09/2022 1:40:56 PM This report has been signed electronically. Number of Addenda: 0 Note Initiated On: 09/09/2022 1:13 PM
--- NOTE | 2022-09-09 15:04 | CASEMGMT ---
Social Work SW met with pt to continue discussion regarding discharge plan. Pt is agreeable he cannot return home alone as he has 13 steps to enter his house. SW spoke with pt regarding choosing facilities and explained that [facility] would pay for ECF if pt chose a [facility] facility ([facility]). If pt would like another facility he could go anywhere under Medicare benefit but would have a copay after 20 days. Pt is unsure what he wants to do and became tearful when talking about medical issues. Support provided. SW to follow tomorrow for support and d/c planning. BRITTANIE Diehl
[2022-09-09] MEDS: Acetaminophen 325 MG Tablet 650 MG PO (22:49)
[2022-09-09] MEDS: Metoprolol Tartrate 25 MG Tablet PO (22:57)
[2022-09-09] MEDS: 0.9% Saline Lock 10 ML Syringe IV (23:06)
[2022-09-10] VITALS (17 sets, daily range): BP systolic 120–149; BP diastolic 63–90; PULSE 66–78; RESP 15–22; TEMP 36.6–37.1; O2SAT 95–98; BMI 25.2
--- NOTE | 2022-09-10 | KID_PTH ---
PATIENT: SAMSON ROBERTS LOC: MS3 U#:[id number] AGE/SX: 72/M [place] [facility] [place]: Dr. Alex Taylor MD : [id number] BED: 1 DIS: 09/18/2022 SPEC #: [id number] RECD: 09/10/22 10:21 STATUS: DEX REQ #: [id number] LIBAN: 09/10/22 00:[address]: Cb Cuba DEPT: SURGICAL PATHOLOGY RECD BY: Mahsa Melgoza ENTERED: 09/10/22 10:21 SP TYPE: KIDNEY OTHR DR: MD Dr. Cb Campbell MD Dr. Mark Tereletsky, DO Dr. Paige Pierce, MD [facility] Tissues: Kidney, NOS Procedures: Electron Microscopy (ACH) Fluorescent Antibody (ACH) Sp St Grp II Kidney (ACH) Kidney Biopsy (ACH) Fluorescent antibody (ACH) add'l Comments: @ Ordering doctor for KIDBX edited from to @ by DARSHAN at 09/10/22 1033 @ Submitting doctor edited from to DR.JDASAR Olivera by DARSHAN at 09/10/22 1033 HEADER OPERATION: CT-guided right kidney biopsy PRE-OP DIAGNOSIS: Right kidney injury, history of hypertension, proteinuria, elevated creatinine TISSUE SUBMITTED: Right kidney 18-gauge x4 MICROSCOPIC DIAGNOSIS Right kidney, biopsies: Renal cortex with diffuse global glomerulosclerosis and ischemic change. Severe interstitial fibrosis. See comment. COMMENT Correlate clinically with history and onset of symptoms. Correlate with any known serology. Case preliminarily findings discussed with Dr. Cuba on 09/11/[address] Kenneth Dunn. Overall, there is renal cortex demonstrating chronic renal disease with evidence of hypertensive changes. There is no evidence of an immune-mediated glomerulopathy as the immunofluorescence profile is nonspecific/negative. MICROSCOPIC DESCRIPTION Light microscopy examined with H&E, PAS, Santana silver, trichrome and Congo red stains yields a single core of overall adequate renal cortex. The remaining cores comprise primarily of medullary and junctional renal tissues. The cortex shows altogether approximately 17 glomeruli (light and frozen tissues); of which 10 glomeruli show global sclerosis. Several of these are subcapsular sclerotic glomeruli. The remaining open glomeruli show evidence of Fofana?s capsule thickening and ischemic change. There is no evidence of crescentic formation, glomerular inflammation or segmental sclerotic change. There is focal associated chronic interstitial inflammation with lymphocytes. The interstitium shows significant fibrosis estimated at 50% with trichrome stain. There are associated patches of tubule atrophy with Tamm-Horsfall proteinaceous material. The tubules show variable changes of acute tubule injury. Examination of arterioles shows mild evidence of intimal thickening. Congo red stain shows no evidence of amyloid deposition or accumulation. There are several portions of medullary renal tissue sampled with scattered edema and lipofuscin. There is a focal fragment of benign fibrovascular tissue adjacent medulla. Special stain positive controls are reviewed and deemed adequate. IMMUNOFLUORESCENCE: Tissue frozen and submitted for immunofluorescence evaluation yields three glomeruli; of which one is globally sclerosed. There is background glomerular and cortex signal with IgG and albumin. IgM, IgA, C3, C1q, fibrin, kappa and lambda are essentially negative. Positive and negative immunofluorescence controls are reviewed and deemed adequate. ELECTRON MICROSCOPY: Toluidine blue semithin sections demonstrate two open glomeruli. Ultrastructure examination shows capillary loops with focal thickening and convolutional changes of the basement membrane. The podocytes show varied hypertrophic changes and focal area of effacement and subtle microvillous changes. There is no evidence of membranous or mesangial deposits. There is mild focal mesangial matrix expansion. The tubules show mild degenerative changes. GROSS DESCRIPTION The specimen is sent entirely to [facility] for diagnosis. Received in polytransport medium is a container labeled with the patient?s name, medical record number and designated ?kidney? are six cores of almanza renal tissue ranging in size from 0.3 cm up to 1.4 cm in length; each approximately 0.1 cm in width. Glomeruli are seen under the dissecting microscope. The specimen is divided for immunofluorescence, electron microscopy and light microscopy.
[2022-09-10] MEDS: Nystatin Powder 15gm Bottle 1 APPLIC TOPICAL ×3 (06:11→20:53)
[2022-09-10] MEDS: Glycerin/Hypromellose/PEG400 15 ml Bottle 1 DRP EACH EYE ×3 (06:11→20:53)
[2022-09-10 06:16] LABS: Absolute Lymphocyte Count 0.63 X10^3/uL (0.83-4.51); Basophil# 0.03 X10^3/uL; Basophil% 0.5 % (0-1); Eosinophil# 0.25 X10^3/uL; Eosinophils% 4.5 % (0-5); Hematocrit 25.1 % (40-54); Hemoglobin 8.4 g/dL (13.0-16.5); Lymphocyte # 0.63 X10^3/ul (0.83-4.51); Lymphocyte % 11.3 % (19-41); Mean Corp Hgb Conc 33.5 g/dL (32-36); Mean Corpuscular Hgb 30.3 pg (27.0-32.0); Mean Corpuscular Volume 90.6 fL (80-94); Mean Platelet Vol. 11.5 fl (6.2-12.0); Monocyte# 0.63 X10^3/uL; Monocyte% 11.3 % (0-10); NRBC Flagged by Analyzer 0 % (0-5); Neutrophil # 4.02 X10^3/uL (2.7-7.7); POSITIVE COUNT YES; Platelet Count 58 K/mm3 (150-450); RBC Distribution Width CV 12.8 % (11.6-14.6); RBC Distribution Width SD 42.5 fl (35.1-43.9); Red Blood Count 2.77 M/mm3 (4.6-6.2); White Blood Count 5.6 K/mm3 (4.4-11.0)
--- NOTE | 2022-09-10 07:23 | US_ITS ---
STUDY: ABDOMINAL ULTRASOUND - RIGHT UPPER QUADRANT REASON FOR VISIT: Male, 72 years old . History of cirrhosis. TECHNIQUE: Ultrasound evaluation of the right upper quadrant was performed with real-time and static bourgeois-scale imaging. TECHNICAL QUALITY: Adequate. COMPARISON: None. FINDINGS: Liver: The liver measures 13.0 cm. There is increased echogenicity consistent with fatty infiltration. The bile ducts are within normal limits. There is hepatic color flow. The direction of portal flow is hepatopetal. There is no demonstrated mass lesion. Gallbladder: Nonvisualization of the gallbladder. Common Bile Duct (C.B.D.): The common bile duct measures 3.8 mm. Pancreas: Normal size of the head, body and tail of the pancreas. There is normal echogenicity of the pancreas. There is no demonstrated pancreatic mass or cyst. Right Kidney: Normal size of the right kidney. The right kidney measures 11 cm x 4.9 cm x 5 cm. Normal renal cortex. The right cortex measures 1.5 cm. There is a 2.5 cm x 2.2 cm x 1.4 cm cyst. There is no right hydronephrosis. Small right pleural effusion. US/Liver IMPRESSION: Nonvisualization of the gallbladder. Fatty infiltration of the liver. Small right pleural effusion. Electronically Signed: Reyes Strickland MD at 8:40 EDT ,
--- NOTE | 2022-09-10 07:26 | PN.HOSP_ITS ---
Reason for Visit Reason for Visit: Diagnoses Anemia, unspecified (09/03/22) Thrombocytopenia, unspecified (09/03/22) Hypo-osmolality and hyponatremia (09/03/22) Hyperkalemia (09/03/22) Acute kidney failure, unspecified (09/03/22) Other forms of dyspnea (09/03/22) Subjective Subjective Feels somewhat generally unwell, a little bit of swelling in his legs that he reports but thinks it is better overall and does not have complaints with his breathing Objective Data Objective Data Vital Signs: Vital Signs Temp Pulse Resp BP Pulse Ox O2 Del Method 98 F 66 16 135/75 H 98 Room Air 09/10/22 04:36 09/10/22 04:36 09/10/22 04:36 09/10/22 04:36 09/10/22 06:54 09/10/22 06:54 Oxygen Delivery Method Room Air Weight: 71.2 kg Body Mass Index (BMI) 25.2 Intake & Output: Intake and Output for Last 24 Hours 09/08/22 09/09/22 09/10/22 23:59 23:59 23:59 Intake Total 1350 / 1350 410.25 / 410.25 300 / 300 Output Total 69258 / 47159 3550 / 3550 450 / 450 Balance -35659 / -99071 -3139.75 / -3139.75 -150 / -150 Lab / Micro Data Result Diagrams: 09/10/22 05:55 09/10/22 05:55 Labs: Laboratory Results - last 24 hr 09/08/22 06:10: HENRIK Screen Negative, MARLEEN-1 Antibody <0.2, SS-A/Ro IgG Antibody < 0.2, SS-B/La IgG Antibody < 0.2, Sm (Gomez) Antibody <0.2, PRODUCTION PLANNER SCHEDULER Antibody <0.2, Scl-70 Scleroderma Ab <0.2, Double Strand DNA Ab <1, Centromere B Antibody <0.2 09/10/22 05:55: WBC 5.6, RBC 2.77 L, Hgb 8.4 L, Hct 25.1 L, MCV 90.6, MCH 30.3, MCHC 33.5, RDW Std Deviation 42.5, RDW Coeff of Itzel 12.8, Plt Count 58 L, MPV 11.5, Immature Gran % (Auto) 0.400, Neut % (Auto) 72.0 H, Lymph % (Auto) 11.3 L, Island % (Auto) 11.3 H, Eos % (Auto) 4.5, Baso % (Auto) 0.5, Absolute Neuts (auto) 4.0, Absolute Lymphs (auto) 0.63 L, Nucleated RBC % 0 Micro: Microbiology 09/06/22 23:25 Stool Stool Occult Blood (NAFISA) - Final Occult Blood Positive Physical Exam Narrative General: Alert, answering questions appropriately HEENT: Atraumatic, normocephalic Eyes: Anicteric, normal conjunctiva, extraocular movements grossly intact Neck: Supple Respiratory: No respiratory distress, decent airflow GI: Soft, nontender, nondistended Extremities: Trace to 1+ lower extremity edema pitting Musculoskeletal: Moving all extremities Neuro: No overt focal neurological deficits Skin: No rashes appreciated Psych: Cooperative Assessment & Plan Assessment/Plan (1) Acute renal failure: (2) Acute hyponatremia: (3) Hyperkalemia: (4) Dyspnea on exertion: (5) Acute kidney injury: PLAN: Plan #SHADY/acute renal failure/urinary retention/hematuria -Creatinine 3.48 in the ED with a BUN of 78 and a potassium of 5.7 -No previous labs and therefore do not have a baseline however he denied any previous problem with kidneys -Trend BMP -Was given IVF however given BNP and clinical picture may in fact be overloaded and creatinine did not improve with IVF, will hold at this time pending studies -Creatinine virtually unchanged this morning at 3.47, will obtain urine studies -Renal ultrasound with renal cysts and small stones versus prominent vessels on the left -Wall thickening of urinary bladder, unclear significance -09/05: Did improve some with diuresis, will increase diuresis to 40 IV twice daily today. -09/06: Creatinine slowly trending back down with diuresis however BUN continues to climb causing a non-anion gap metabolic acidemia. Given disproportionate BUN and dropping hemoglobin will check FOBT. Also check postvoid residual to assess for any urinary retention contributing -09/07: Worsened today with increased hyperkalemia, continued hyponatremia, continued acidemia with BUN of 91, hyperkalemia cocktail, nephrology consult -09/08: Patient was retaining urine after 2 post void trials and Quinteros was placed, was passing small clots and red urine and had three-way Quinteros inserted with irrigation and a large clot. No urology coverage this week so urology not consulted, do not feel he needs urgently transferred at this time. Will consider Noncon CT abdomen to assess for any stones in his kidneys that may be contributing to hematuria as they required stones on ultrasound but not definitive, unable to get contrasted CT to assess for any additional pathology due to kidney function. Poor urine output after initial Quinteros placement, will hold Lasix pending nephro input as he may be becoming intravascularly depleted. Patient's autoimmune work-up pending. -09/09: Patient agreeable to biopsy at our institution, was made n.p.o. last night in the event he was agreeable, this has been ordered. Discussed with nephrology -09/10: Review of labs from [place] now available and baseline creatinine closer to 1. Kidney biopsy this a.m., results pending. No longer requiring frequent bladder irrigation as urine is now clear and hematuria resolved #Thrombocytopenia/normocytic anemia- FOBT+/slow upper GI bleed secondary to multiple duodenal ulcers -On presentation hemoglobin 12.3 and is down trended and is now 9.6 despite diuresis which should cause volume contraction if anything -We will check FOBT especially given BUN continues to worsen with improvement kidney function seems to be disproportionate -09/07: Downtrending hemoglobin, increasing BUN despite improving creatinine, FOBT positive. Will consult GI especially given he will need anticoagulation due to DVT. Continue to hold Eliquis -09/08: Pending GI eval -09/10: Had upper endoscopy yesterday which showed erythematous mucosa in the gastric body with multiple oozing duodenal ulcers with pigmented material which were injected, treated with heater probe and biopsied. Discussed with GI and they wanted PPI twice daily if cleared to do so with nephrology. Discussed with nephrology and they are agreeable so he had IV PPI every 12 ordered. Will ultimately need evaluation for cirrhosis with his hyponatremia and bicytopenia. Liver ultrasound ordered #Non-anion gap metabolic acidemia -Suspect largely due to worsening uremia however would anticipate this will cause a high anion gap so Likely Multifactorial -Address underlying etiology #Hyperkalemia -Likely secondary to acute renal failure -5.7 on admission now 5.4 -6/3: Improving with diuresis and improving renal function -09/06: Continue to monitor, continue diuresis -09/07: Worse noted to 5.9, hyperkalemia protocol, nephrology consult due to patient failing present measures -09/08: Repeat was within normal limits, potassium on upper end of normal today but not elevated, continue to address underlying etiology, low potassium diet #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 -Lower extremity duplex with left popliteal and tibial peroneal trunk chronic DVT -Given proximal component patient qualifies for anticoagulation, do not see contraindication to this -Given they are chronic in nature do not feel he needs loaded and will start Eliquis 5 twice daily -09/05: Given platelets less than 50 today Eliquis held, will place order for SCDs -09/06: Platelets 54 today however given downtrending hemoglobin will check FOBT continue with SCDs prior to resuming full dose anticoagulation -09/07: FOBT positive with uptrending BUN and anemia and thrombocytopenia, continue to hold Eliquis, GI consult -09/10: Continue to hold Eliquis given his thrombocytopenia and kidney biopsy however okay to resume per GI once able to do so #Shortness of breath/bilateral pleural effusions/moderate pulmonary hypertension -BNP 906 in ED -Bilateral lower extremity edema, suspect overload -Chest x-ray with bibasilar pleural effusions and atelectasis with a 9 mm nodule density projecting over the left fifth anterior rib recommending CT be performed to exclude neoplasm, will order chest ct -We will additionally get echocardiogram -09/06: Echo from 09/04 with EF 60%, moderate mitral valve insufficiency, moderate pulmonary hypertension with small pericardial effusion and moderate-sized left pleural effusion and indeterminate diastolic dysfunction. Chest CT demonstrated bilateral pleural effusions right slightly greater than left with bibasilar atelectasis. Presently being diuresed. We will add daily weights and I's and O 's. Has prolonged expiratory phase and do suspect he may have component of COPD, will start nebs, if no improvement can DC -09/07: Patient on Lasix and nebs, respiratory status seems to be improving -09/08: Respiratory status stable, Lasix dose held -09/09: Held Lasix with present kidney function but if deemed appropriate to resume from nephrology standpoint agreeable to do so #Hypothyroidism -Continue Synthroid #Hyponatremia -Sodium 125 on presentation and 126 in a.m. -TSH 4.11 -We will check serum and urine osmolalities and urine lytes -09/05: Suspect this is secondary to overload, continue diuresis, sodium did slightly improved today -09/06: Continues to very slightly improved -09/07: Fairly unchanged today -09/10: Stable #Elevated troponin -Suspect type II given elevated BNP and renal failure -Original troponin 94 and down trended to 60 #hard of hearing -complicates care, medical course, recovery, and prognosis #DVT ppx: Held home dose of Eliquis due to platelets, DVT found is chronic, SCDs Jeanette Yo MD Time spent in the patient's overall evaluation,decision-making process, review of diagnostic data, adjustment of management, discussion with other providers, nursing nursing and ancillary staff involved in patient's care documentation, 30 minutes Charges/Coding Visit Charges Inpatient E&M: 75074 Subs Hosp L2
[2022-09-10 07:56] LABS: ALB/GLOB Ratio 0.7 RATIO (0.9-2.4); AST(SGOT) 9 U/L (15-37); Alanine Aminotransfer ALT/SGPT 17 U/L (16-61); Albumin, Serum 1.8 g/dL (3.2-5.0); Alkaline Phosphatase 67 U/L (45-117); Anion Gap 9 (5-15); BUN 102 mg/dL (7-18); Calcium,Total 7.6 mg/dL (8.5-10.1); Chloride 104 mmol/L (98-107); Creatinine, Serum 3.64 mg/dL (0.70-1.30); EST Glomerular Filtration Rate 17 mL/min (>60); Est Glom Filt Rate - Afr Amer 21 mL/min (>60); Estimated Creatinine Clearance 16.07 ml/min; Globulin 2.6 g/dL (2.2-4.2); Glucose 94 mg/dL (74-106); Potassium 5.3 mmol/L (3.5-5.1); Protein, Total 4.4 g/dL (6.4-8.2); Sodium Level 129 mmol/L (136-145)
--- NOTE | 2022-09-10 07:57 | WOUNDNOTE ---
Lab called with critical BUN 102. ELDA Short aware. very slightly improved from yesterday. Dr Yo notified per ELDA Cartwright charge.
--- NOTE | 2022-09-10 09:00 | CT_ITS ---
PROCEDURE: CT GUIDED PERCUTANEOUS KIDNEY BIOPSY. DATE: September 10, 2022. INDICATION: Male, 72 years old. Acute renal failure. PHYSICIAN: Reyes Strickland M.D. MEDICATIONS: 1 mg of Versed and 25 mcg of fentanyl. Conscious sedation was started at 9:01 AM and terminated at 9:20 AM. The patient was independently monitored by the department nurse. ACCESS SITE: Lower pole of the right kidney. NEEDLE: 18-gauge core biopsy needle SPECIMEN: 4 18-gauge cores EBL: None. COMPLICATIONS: None immediate. RADIATION DOSAGE (If Supplied By Facility): CTDIvol = ( 17 ) mGy, DLP = ( 316.87 ) mGycm The risks, benefits, and alternatives to the procedure and sedation were explained to the patient. The specific risk of hemorrhage requiring further treatment or intervention was detailed and accepted. Written informed consent was obtained. The patient was placed on the CT table in the prone position. Multiple axial images were obtained from the lung base through the caudal extent of the kidneys. An appropriate entry site was identified and a adilia made on the skin. The skin overlying the [ right] posterior flank was prepped and draped in sterile fashion. 1% lidocaine was administered subcutaneously for local anesthesia. Initially, a 22 gauge needle was advanced and CT images confirmed good needle position. The 22 gauge needle was then exchanged for an 17 gauge introducer needle which was advanced. Repeat CT images confirmed good needle trajectory and tip position. The introducer needle was then advanced into the periphery of the inferior renal pole, and CT images were again obtained to confirm exact tip location. The inner stylet of the introducer needle was then removed and an 18 gauge coaxial needle was advanced thru the introducer needle and biopsy performed. A total of [4 ] passes were performed and the specimen collected was sent to Pathology for further evaluation. The needle was withdrawn. Hemostasis was achieved with manual compression and a sterile dressing was applied. Repeat CT images of the biopsy area was performed which demonstrated no gross bleeding or hematoma. The patient tolerated the procedure well without immediate complications. The patient was transported to the [floor/recovery area] in stable condition. CT/Biopsy/Inj or Needle Placement IMPRESSION: Successful CT guided percutaneous kidney biopsy. Conscious sedation protocol was followed. Electronically Signed: Reyes Strickland MD at 9:44 EDT ,
[2022-09-10] MEDS: Midazolam 2 MG/2 ML Syringe IV (09:01)
[2022-09-10] MEDS: fentaNYL 100 MCG/2 ML Ampul IV (09:02)
[2022-09-10] MEDS: Lidocaine 2% (20 ml mdv) 20 ML Vial INFILT (09:10)
[2022-09-10] MEDS: Menthol/Lanolin/Calamine/Znox 113 GM Tube 1 APPLIC TOPICAL ×2 (10:37→20:53)
[2022-09-10] MEDS: Metoprolol Tartrate 25 MG Tablet PO ×2 (10:38→20:52)
[2022-09-10] MEDS: 0.9% Saline Lock 10 ML Syringe IV (10:38)
[2022-09-10] MEDS: Cyanocobalamin 500 MCG Tablet 1000 MCG PO (10:38)
--- NOTE | 2022-09-10 10:50 | WOUNDNOTE ---
Pt back from kidney biopsy and ultrasound. vital signs stable. Han RN assessed biopsy dressing and states is D&I. patient asking for coffee. talked with Dr Yo and orders received to resume diet. coffee given. pt denies further needs at this time.
--- NOTE | 2022-09-10 11:18 | CASEMGMT ---
Social Work SW spoke w/pt about discharge plan. We reviewed again that if he goes to [facility], he would be covered for the first 20 days and would have a copay after this. SW explained if he goes to a [facility] facility, he would be covered once he gets to day 21. SW reviewed pt's options with him again. Pt agreeable to referral to [facility]. SW let ernie Mandujano/c convention planner know, and she will send the referral. SW will continue to follow. It is anticipated pt will be here through the weekend as per physician. JAMARI Lerma
--- NOTE | 2022-09-10 11:45 | CASEMGMT ---
Discharge Planning Referrals sent to [facility] via [facility]. Informed them that patient has VA benefits and to let us know if additional information is needed to verify them. Nazia Jones DC Planning Asst.
[2022-09-10 13:08] LABS: Complement C3 95 mg/dL (82-167); Cytoplasmic Ab (C-ANCA) <1:20 titer (Neg:<1:20); Immunofixation Result, Serum Comment: (.); Immunoglobulin A 162 mg/dL (61-437); Immunoglobulin G 653 mg/dL (603-1613); Immunoglobulin M 60 mg/dL (15-143); Perinuclear Ab (P-ANCA) <1:20 titer (Neg:<1:20)
--- NOTE | 2022-09-10 13:48 | NURSING ---
Dr Yo aware of the Lab levels. maintain fluids at 15 ml/hr
--- NOTE | 2022-09-10 14:28 | PCM.PN.REN ---
Subjective Subjective no new complaints today. Status post kidney biopsy. Objective Data Objective Data Vital Signs: Vital Signs Temp Pulse Resp BP Pulse Ox O2 Del Method 97.9 F 70 18 129/69 H 97 Room Air 09/10/22 10:25 09/10/22 10:56 09/10/22 10:25 09/10/22 10:25 09/10/22 10:25 09/10/22 10:25 Oxygen Delivery Method [5] Room Air Oxygen Delivery Method [4] Room Air Oxygen Delivery Method [3] Room Air Oxygen Delivery Method [2] Room Air Oxygen Delivery Method [1 ( Room Air Initial Baseline)] Oxygen Delivery Method Room Air Weight: 71.2 kg Body Mass Index (BMI) 25.2 Intake & Output: Intake and Output for Last 24 Hours 09/08/22 09/09/22 09/10/22 23:59 23:59 23:59 Intake Total 1350 / 1350 410.25 / 410.25 415 / 415 Output Total 49300 / 08541 3550 / 3550 550 / 550 Balance -79088 / -81843 -3139.75 / -3139.75 -135 / -135 Lab / Micro Data Result Diagrams: 09/10/22 05:55 09/10/22 05:55 Labs: Laboratory Results - last 24 hr 09/08/22 06:10: IgG 653, IgA 162, IgM 60, Serum Immunofixation Comment:, c-ANCA Antibody <1:20, Atypical p-ANCA <1:20, p-ANCA Antibody <1:20, Complement C3 95, Complement C4 23 09/10/22 05:55: WBC 5.6, RBC 2.77 L, Hgb 8.4 L, Hct 25.1 L, MCV 90.6, MCH 30.3, MCHC 33.5, RDW Std Deviation 42.5, RDW Coeff of Itzel 12.8, Plt Count 58 L, MPV 11.5, Immature Gran % (Auto) 0.400, Neut % (Auto) 72.0 H, Lymph % (Auto) 11.3 L, [place] % (Auto) 11.3 H, Eos % (Auto) 4.5, Baso % (Auto) 0.5, Absolute Neuts (auto) 4.0, Absolute Lymphs (auto) 0.63 L, Nucleated RBC % 0 09/10/22 05:55: Sodium 129 L, Potassium 5.3 H, Chloride 104, Carbon Dioxide 16.0 L, Anion Gap 9, BUN 102 H*, Creatinine 3.64 H, Estim Creat Clear Calc 16.07, Est GFR (MDRD) Af Amer 21 L, Est GFR (MDRD) Non-Af 17 L, BUN/Creatinine Ratio 28.0 H, Glucose 94, Calcium 7.6 L, Total Bilirubin 0.40, AST 9 L, ALT 17, Alkaline Phosphatase 67, Total Protein 4.4 L, Albumin 1.8 L, Globulin 2.6, Albumin/Globulin Ratio 0.7 L Micro: Microbiology 09/06/22 23:25 Stool Stool Occult Blood (NAFISA) - Final Occult Blood Positive Radiography Diagnostic Testing: Radiology Impression Liver Ultrasound 09/10/22 07:23 IMPRESSION: Nonvisualization of the gallbladder. Fatty infiltration of the liver. Small right pleural effusion. Electronically Signed: Reyes Strickland MD at 8:40 EDT , Biopsy CT 09/10/22 09:00 IMPRESSION: Successful CT guided percutaneous kidney biopsy. Conscious sedation protocol was followed. Electronically Signed: Reyes Strickland MD at 9:44 EDT , Physical Exam Narrative Alert awake oriented x 3 no obvious distress no pallor no icterus no JVD s1s2 no murmurs lungs clear abdomen soft no organomegaly no edema no cyanosis [place]in + Assessment & Plan Assessment/Plan (1) Acute renal failure: (2) Acute hyponatremia: (3) Hyperkalemia: (4) Dyspnea on exertion: PLAN: Plan 72-year-old male who presented to the emergency room with complaints of shortness of breath. Nephrology consulted as patient noted to have elevated serum creatinine, hyperkalemia and hyponatremia. Past medical history (obtained from [facility]) includes hypertension, hypothyroidism, prostate carcinoma (diagnosed 2017) on active surveillance, no surgical intervention. -SHADY, unclear cause. Able to obtain past records from [facility]: serum creatinine 1.0 mg/dL July 01, 2022 and August 09, 2020 serum creatinine 1.1 mg/dL. On admission, 09/03 serum creatinine 3.48, peaked 3.65, remains essentially the same.renal ultrasound without any hydronephrosis. Serologies came back today, all serologies are negative. Pre-existing thrombocytopenia, previous platelet count around 80,000, now around 50,000. I will call pathology tomorrow for final biopsy report. Renal function is fairly borderline, not sure if he is a candidate for dialysis. Goal is to treat whatever is causing renal failure and see if renal function recovers. -Hypervolemic hyponatremia improved with diuresis. Sodium 125 on admission and today sodium 129. Patient has normal baseline sodium per [facility] labs. - Chest x-ray showed bilateral pleural effusions, noted to have elevated BNP. Echo from 09/04: EF 60%, moderate pulmonary hypertension with small pericardial effusion, moderate size left pleural effusion, indeterminate diastolic dysfunction. CT of chest bilateral pleural effusions right slightly greater than left. received Lasix, symptomatically better. -Chronic thrombocytopenia. Platelet 56 on admission, currently 51. Past records from [facility]: July 01, 2022 platelet 88 and March 14, 2021 platelet 78. Patient has chronic DVT, eliquis on hold. GI consulted for +FOBT
--- NOTE | 2022-09-10 16:00 | CASEMGMT ---
Discharge Planning Referral [facility] to [facility]. Nazia Jones, Discharge Planning Asst.
--- NOTE | 2022-09-10 17:19 | PN.GI_ITS ---
Subjective Subjective Patient is about the same today. He denies any abdominal pain. He is status post kidney biopsy. He has not seen any blood in his stool. He is status post upper endoscopy. Objective Data Objective Data Vital Signs: Vital Signs Temp Pulse Resp BP Pulse Ox O2 Del Method 98.6 F 70 18 128/70 H 96 Room Air 09/10/22 15:52 09/10/22 15:57 09/10/22 15:52 09/10/22 15:52 09/10/22 15:52 09/10/22 15:52 Oxygen Delivery Method [5] Room Air Oxygen Delivery Method [4] Room Air Oxygen Delivery Method [3] Room Air Oxygen Delivery Method [2] Room Air Oxygen Delivery Method [1 ( Room Air Initial Baseline)] Oxygen Delivery Method Room Air Weight: 156 lb 15.506 oz Body Mass Index (BMI) 25.2 Intake & Output: Intake and Output for Last 24 Hours 09/08/22 09/09/22 09/10/22 23:59 23:59 23:59 Intake Total 1350 / 1350 410.25 / 410.25 415 / 415 Output Total 70573 / 85080 3550 / 3550 550 / 550 Balance -99523 / -92484 -3139.75 / -3139.75 -135 / -135 Lab / Micro Data Result Diagrams: 09/10/22 05:55 09/10/22 05:55 Labs: Laboratory Results - last 24 hr 09/08/22 06:10: IgG 653, IgA 162, IgM 60, Serum Immunofixation Comment:, c-ANCA Antibody <1:20, Atypical p-ANCA <1:20, p-ANCA Antibody <1:20, Complement C3 95, Complement C4 23 09/10/22 05:55: WBC 5.6, RBC 2.77 L, Hgb 8.4 L, Hct 25.1 L, MCV 90.6, MCH 30.3, MCHC 33.5, RDW Std Deviation 42.5, RDW Coeff of Itzel 12.8, Plt Count 58 L, MPV 11.5, Immature Gran % (Auto) 0.400, Neut % (Auto) 72.0 H, Lymph % (Auto) 11.3 L, Bartholomew % (Auto) 11.3 H, Eos % (Auto) 4.5, Baso % (Auto) 0.5, Absolute Neuts (auto) 4.0, Absolute Lymphs (auto) 0.63 L, Nucleated RBC % 0 09/10/22 05:55: Sodium 129 L, Potassium 5.3 H, Chloride 104, Carbon Dioxide 16.0 L, Anion Gap 9, BUN 102 H*, Creatinine 3.64 H, Estim Creat Clear Calc 16.07, Est GFR (MDRD) Af Amer 21 L, Est GFR (MDRD) Non-Af 17 L, BUN/Creatinine Ratio 28.0 H , Glucose 94, Calcium 7.6 L, Total Bilirubin 0.40, AST 9 L, ALT 17, Alkaline Phosphatase 67, Total Protein 4.4 L, Albumin 1.8 L, Globulin 2.6, Albumin/Globulin Ratio 0.7 L Micro: Microbiology 09/06/22 23:25 Stool Stool Occult Blood (NAFISA) - Final Occult Blood Positive Radiography Diagnostic Testing: Radiology Impression Liver Ultrasound 09/10/22 07:23 IMPRESSION: Nonvisualization of the gallbladder. Fatty infiltration of the liver. Small right pleural effusion. Electronically Signed: Reyes Strickland MD at 8:40 EDT , Biopsy CT 09/10/22 09:00 IMPRESSION: Successful CT guided percutaneous kidney biopsy. Conscious sedation protocol was followed. Electronically Signed: Reyes Strickland MD at 9:44 EDT , Physical Exam Narrative Alert awake oriented x 3 no obvious distress no pallor no icterus no JVD s1s2 no murmurs lungs clear abdomen soft no organomegaly no edema no cyanosis [place] + Assessment & Plan Assessment/Plan (1) Anemia: (2) Thrombocytopenia: (3) Hyponatremia: PLAN: Plan 72-year-old gentleman with lethargy, mildly altered mental status and shortness of breath discovered to have bilateral pleural effusions, acute renal failure, bicytopenia with low hemoglobin and platelet being worked up by nephrology for renal failure. -Anemia Patient seems to have anemia chronic disease in the setting of possible iron deficiency anemia versus acute blood loss anemia. With his bicytopenia he should be evaluated for cirrhosis especially in the setting of hyponatremia. He will undergo an upper endoscopy to see if there are any signs of chronic liver disease such as portal gastropathy, varices, gastric antral vascular ectasia. Although which can be associated with acute and chronic blood loss anemia. He was explained alternatives, risk, benefits including outstanding bleeding, infection, sepsis, perforation, need for emergent . He will have an ASA of 3. 6/8: Patient is status post upper endoscopy. His hemoglobin did seem stable but had a slight decrease today. He is also having persistent bicytopenia. We ordered a liver ultrasound I did not show any signs of cirrhosis or significant heterogenicity secondary to underlying liver disease. I am unsure about his thrombocytopenia. It could be immune mediated that is possibly correlating with a vasculitis type picture. I am okay with him going on antisecretory, antihistamine or antiacid blockers. With his elevated BUN he will have relative and effective platelets that could affect wound healing. Also he has relative Unger inhibition with his renal failure that can affect his healing in his stomach. Continue to follow H&H Charges/Coding Visit Charges Inpatient E&M: 14041 Subs Hosp L3
[2022-09-11] VITALS (7 sets, daily range): BP systolic 119–147; BP diastolic 67–78; PULSE 70–77; RESP 16–20; TEMP 36.6–36.8; O2SAT 95–100; BMI 25.0
[2022-09-11] MEDS: Levothyroxine 25 MCG TABLET PO (05:14)
[2022-09-11] MEDS: Nystatin Powder 15gm Bottle 1 APPLIC TOPICAL ×3 (05:15→21:40)
[2022-09-11] MEDS: Glycerin/Hypromellose/PEG400 15 ml Bottle 1 DRP EACH EYE ×3 (05:15→21:37)
[2022-09-11 06:39] LABS: Absolute Lymphocyte Count 0.42 X10^3/uL (0.83-4.51); Absolute Neutrophil Count 4.9 X10^3/uL (2.0-7.7); Basophil# 0.02 X10^3/uL; Basophil% 0.3 % (0-1); Eosinophil# 0.12 X10^3/uL; Hematocrit 23.8 % (40-54); Hemoglobin 8.1 g/dL (13.0-16.5); Lymphocyte # 0.42 X10^3/ul (0.83-4.51); Lymphocyte % 6.9 % (19-41); Mean Corpuscular Hgb 31.3 pg (27.0-32.0); Mean Corpuscular Volume 91.9 fL (80-94); Mean Platelet Vol. 10.4 fl (6.2-12.0); Monocyte# 0.62 X10^3/uL; Monocyte% 10.2 % (0-10); NRBC Flagged by Analyzer 0 % (0-5); Neutrophil # 4.87 X10^3/uL (2.7-7.7); Neutrophil % 80.3 % (47-70); POSITIVE COUNT YES; POSITIVE DIFFERENTIAL YES; Platelet Count 66 K/mm3 (150-450); Red Blood Count 2.59 M/mm3 (4.6-6.2); White Blood Count 6.1 K/mm3 (4.4-11.0)
[2022-09-11 06:41] LABS: Differential Indicated SCAN CRITERIA MET
[2022-09-11 07:27] LABS: ALB/GLOB Ratio 0.6 RATIO (0.9-2.4); AST(SGOT) 5 U/L (15-37); Alanine Aminotransfer ALT/SGPT 15 U/L (16-61); Albumin, Serum 1.9 g/dL (3.2-5.0); Alkaline Phosphatase 74 U/L (45-117); Anion Gap 10 (5-15); BUN 109 mg/dL (7-18); BUN/Creat Ratio 25.4 RATIO (10-20); Calcium,Total 7.9 mg/dL (8.5-10.1); Chloride 102 mmol/L (98-107); Creatinine, Serum 4.29 mg/dL (0.70-1.30); EST Glomerular Filtration Rate 14 mL/min (>60); Est Glom Filt Rate - Afr Amer 18 mL/min (>60); Estimated Creatinine Clearance 13.63 ml/min; Glucose 95 mg/dL (74-106); Potassium 5.4 mmol/L (3.5-5.1); Protein, Total 4.9 g/dL (6.4-8.2); Sodium Level 128 mmol/L (136-145)
[2022-09-11 07:38] LABS: Platelet Estimate MOD DEC (ADEQ); Red Cell Morphology NORM C+C NORMAL (NORM C&C)
--- NOTE | 2022-09-11 08:11 | PN.HOSP_ITS ---
Reason for Visit Reason for Visit: Diagnoses Anemia, unspecified (09/03/22) Thrombocytopenia, unspecified (09/03/22) Hypo-osmolality and hyponatremia (09/03/22) Hyperkalemia (09/03/22) Acute kidney failure, unspecified (09/03/22) Other forms of dyspnea (09/03/22) Subjective Subjective Patient frustrated he is not able to go home, does not feel the swelling is very bad and breathing is fair. Quinteros in place. Kidney function continues to worsen Objective Data Objective Data Vital Signs: Vital Signs Temp Pulse Resp BP Pulse Ox O2 Del Method 98 F 73 16 127/73 H 95 Room Air 09/11/22 02:15 09/11/22 02:15 09/11/22 02:15 09/11/22 02:15 09/11/22 02:15 09/11/22 02:15 Oxygen Delivery Method [5] Room Air Oxygen Delivery Method [4] Room Air Oxygen Delivery Method [3] Room Air Oxygen Delivery Method [2] Room Air Oxygen Delivery Method [1 ( Room Air Initial Baseline)] Oxygen Delivery Method Room Air Weight: 70.715 kg Body Mass Index (BMI) 25.0 Intake & Output: Intake and Output for Last 24 Hours 09/09/22 09/10/22 09/11/22 23:59 23:59 23:59 Intake Total 410.25 / 410.25 957.5 / 957.5 250 / 250 Output Total 3550 / 3550 575 / 625 450 / 450 Balance -3139.75 / -3139.75 382.5 / 332.5 -200 / -200 Lab / Micro Data Result Diagrams: 09/11/22 06:30 09/11/22 06:30 Labs: Laboratory Results - last 24 hr 09/08/22 06:10: IgG 653, IgA 162, IgM 60, Serum Immunofixation Comment:, c-ANCA Antibody <1:20, Atypical p-ANCA <1:20, p-ANCA Antibody <1:20, Complement C3 95, Complement C4 23 09/11/22 06:30: WBC 6.1, RBC 2.59 L, Hgb 8.1 L, Hct 23.8 L, MCV 91.9, MCH 31.3, MCHC 34.0, RDW Std Deviation 43.0, RDW Coeff of Itzel 13.0, Plt Count 66 L, MPV 10.4, Immature Gran % (Auto) 0.300, Neut % (Auto) 80.3 H, Lymph % (Auto) 6.9 L, [place] % (Auto) 10.2 H, Eos % (Auto) 2.0, Baso % (Auto) 0.3, Absolute Neuts (auto) 4.9, Absolute Lymphs (auto) 0.42 L, Nucleated RBC % 0, Platelet Estimate MOD D EC, RBC Morphology NORM C+C 09/11/22 06:30: Sodium 128 L, Potassium 5.4 H, Chloride 102, Carbon Dioxide 16.0 L, Anion Gap 10, BUN 109 H*, Creatinine 4.29 H, Estim Creat Clear Calc 13.63, Est GFR (MDRD) Af Amer 18 L, Est GFR (MDRD) Non-Af 14 L, BUN/Creatinine Ratio 25.4 H, Glucose 95, Calcium 7.9 L, Total Bilirubin 0.60, AST 5 L, ALT 15 L, Alkaline Phosphatase 74, Total Protein 4.9 L, Albumin 1.9 L, Globulin 3.0, Albumin/Globulin Ratio 0.6 L Micro: Microbiology 09/06/22 23:25 Stool Stool Occult Blood (NAFISA) - Final Occult Blood Positive Radiography Diagnostic Testing: Radiology Impression Liver Ultrasound 09/10/22 07:23 IMPRESSION: Nonvisualization of the gallbladder. Fatty infiltration of the liver. Small right pleural effusion. Electronically Signed: Reyes Strickland MD at 8:40 EDT , Biopsy CT 09/10/22 09:00 IMPRESSION: Successful CT guided percutaneous kidney biopsy. Conscious sedation protocol was followed. Electronically Signed: Reyes Strickland MD at 9:44 EDT , Physical Exam Narrative General: Alert, answering questions appropriately HEENT: Atraumatic, normocephalic Eyes: Anicteric, normal conjunctiva, extraocular movements grossly intact Neck: Supple Respiratory: No respiratory distress, decent airflow GI: Soft, nontender, nondistended Extremities: Trace to 1+ lower extremity edema pitting Musculoskeletal: Moving all extremities Neuro: No overt focal neurological deficits Skin: No rashes appreciated Psych: Cooperative Assessment & Plan Assessment/Plan (1) Acute renal failure: (2) Acute hyponatremia: (3) Hyperkalemia: (4) Dyspnea on exertion: (5) Acute kidney injury: PLAN: Plan #SHADY/acute renal failure/urinary retention/hematuria -Creatinine 3.48 in the ED with a BUN of 78 and a potassium of 5.7 -No previous labs and therefore do not have a baseline however he denied any previous problem with kidneys -Trend BMP -Was given IVF however given BNP and clinical picture may in fact be overloaded and creatinine did not improve with IVF, will hold at this time pending studies -Creatinine virtually unchanged this morning at 3.47, will obtain urine studies -Renal ultrasound with renal cysts and small stones versus prominent vessels on the left -Wall thickening of urinary bladder, unclear significance -09/05: Did improve some with diuresis, will increase diuresis to 40 IV twice daily today. -09/06: Creatinine slowly trending back down with diuresis however BUN continues to climb causing a non-anion gap metabolic acidemia. Given disproportionate BUN and dropping hemoglobin will check FOBT. Also check postvoid residual to assess for any urinary retention contributing -09/07: Worsened today with increased hyperkalemia, continued hyponatremia, continued acidemia with BUN of 91, hyperkalemia cocktail, nephrology consult -09/08: Patient was retaining urine after 2 post void trials and Quinteros was placed, was passing small clots and red urine and had three-way Quinteros inserted with irrigation and a large clot. No urology coverage this week so urology not consulted, do not feel he needs urgently transferred at this time. Will consider Noncon CT abdomen to assess for any stones in his kidneys that may be contributing to hematuria as they required stones on ultrasound but not definitive, unable to get contrasted CT to assess for any additional pathology due to kidney function. Poor urine output after initial Quinteros placement, will hold Lasix pending nephro input as he may be becoming intravascularly depleted. Patient's autoimmune work-up pending. -09/09: Patient agreeable to biopsy at our institution, was made n.p.o. last night in the event he was agreeable, this has been ordered. Discussed with nephrology -09/10: [facility] and baseline creatinine closer to 1. Kidney biopsy this a.m., results pending. No longer requiring frequent bladder irrigation as urine is now clear and hematuria resolved -09/11: Kidney biopsy without nephritis or ATN, electron microscopy comes back Wednesday. May need to explore immunotherapy or dialysis but will need to clarify patient wishes and goals of care. Started on a sodium bicarb drip. Discussed with nephrology #Thrombocytopenia/normocytic anemia- FOBT+/slow upper GI bleed secondary to multiple duodenal ulcers -On presentation hemoglobin 12.3 and is down trended and is now 9.6 despite diuresis which should cause volume contraction if anything -We will check FOBT especially given BUN continues to worsen with improvement kidney function seems to be disproportionate -09/07: Downtrending hemoglobin, increasing BUN despite improving creatinine, FOBT positive. Will consult GI especially given he will need anticoagulation due to DVT. Continue to hold Eliquis -09/08: Pending GI eval -09/10: Had upper endoscopy yesterday which showed erythematous mucosa in the gastric body with multiple oozing duodenal ulcers with pigmented material which were injected, treated with heater probe and biopsied. Discussed with GI and they wanted PPI twice daily if cleared to do so with nephrology. Discussed with nephrology and they are agreeable so he had IV PPI every 12 ordered. Will ultimately need evaluation for cirrhosis with his hyponatremia and bicytopenia. Liver ultrasound ordered -09/11: Liver biopsy only demonstrated fatty infiltration of the liver. Continue present measures and PPI. Hemoglobin has progressively been downtrending, will check iron studies #Non-anion gap metabolic acidemia -Suspect largely due to worsening uremia however would anticipate this will cause a high anion gap so Likely Multifactorial -Address underlying etiology -09/11: Started on bicarb drip per nephro #Hyperkalemia -Likely secondary to acute renal failure -5.7 on admission now 5.4 -63: Improving with diuresis and improving renal function -09/06: Continue to monitor, continue diuresis -09/07: Worse noted to 5.9, hyperkalemia protocol, nephrology consult due to patient failing present measures -09/08: Repeat was within normal limits, potassium on upper end of normal today but not elevated, continue to address underlying etiology, low potassium diet -09/11: Kayexalate, started on bicarb drip #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 -Lower extremity duplex with left popliteal and tibial peroneal trunk chronic DVT -Given proximal component patient qualifies for anticoagulation, do not see contraindication to this -Given they are chronic in nature do not feel he needs loaded and will start Eliquis 5 twice daily -09/05: Given platelets less than 50 today Eliquis held, will place order for SCDs -09/06: Platelets 54 today however given downtrending hemoglobin will check FOBT continue with SCDs prior to resuming full dose anticoagulation -09/07: FOBT positive with uptrending BUN and anemia and thrombocytopenia, continue to hold Eliquis, GI consult -09/10: Continue to hold Eliquis given his thrombocytopenia and kidney biopsy however okay to resume per GI once able to do so #Shortness of breath/bilateral pleural effusions/moderate pulmonary hypertension -BNP 906 in ED -Bilateral lower extremity edema, suspect overload -Chest x-ray with bibasilar pleural effusions and atelectasis with a 9 mm nodule density projecting over the left fifth anterior rib recommending CT be performed to exclude neoplasm, will order chest ct -We will additionally get echocardiogram -09/06: Echo from 09/04 with EF 60%, moderate mitral valve insufficiency, moderate pulmonary hypertension with small pericardial effusion and moderate-sized left pleural effusion and indeterminate diastolic dysfunction. Chest CT demonstrated bilateral pleural effusions right slightly greater than left with bibasilar atelectasis. Presently being diuresed. We will add daily weights and I's and O's. Has prolonged expiratory phase and do suspect he may have component of COPD, will start nebs, if no improvement can DC -09/07: Patient on Lasix and nebs, respiratory status seems to be improving -09/08: Respiratory status stable, Lasix dose held -09/09: Held Lasix with present kidney function but if deemed appropriate to resume from nephrology standpoint agreeable to do so -09/11: Respiratory status stable #Hypothyroidism -Continue Synthroid #Hyponatremia -Sodium 125 on presentation and 126 in a.m. -TSH 4.11 -We will check serum and urine osmolalities and urine lytes -09/05: Suspect this is secondary to overload, continue diuresis, sodium did slightly improved today -09/06: Continues to very slightly improved -09/07: Fairly unchanged today -09/10: Stable #Elevated troponin -Suspect type II given elevated BNP and renal failure -Original troponin 94 and down trended to 60 #hard of hearing -complicates care, medical course, recovery, and prognosis #DVT ppx: Held home dose of Eliquis due to platelets, DVT found is chronic, SCDs Jeanette Yo MD Time spent in the patient's overall evaluation,decision-making process, review of diagnostic data, adjustment of management, discussion with other providers, nursing nursing and ancillary staff involved in patient's care documentation, 43 minutes Charges/Coding Visit Charges Inpatient E&M: 55345 Subs Hosp L3
--- NOTE | 2022-09-11 08:29 | NURSING ---
urine sent to lab.
[2022-09-11] MEDS: Menthol/Lanolin/Calamine/Znox 113 GM Tube 1 APPLIC TOPICAL ×2 (08:42→21:54)
[2022-09-11] MEDS: Metoprolol Tartrate 25 MG Tablet PO ×2 (08:42→21:37)
[2022-09-11] MEDS: Cyanocobalamin 500 MCG Tablet 1000 MCG PO (08:43)
[2022-09-11 09:10] LABS: Osmolality, Urine 312 mOsm/KG
[2022-09-11 09:21] LABS: Urea Nitrogen, Urine 367 mg/dL (NO RANGE EST.); Urine Chloride 24 mmol/L (Not Establ.); Urine Sodium 21 mmol/L (Not Establ.)
--- NOTE | 2022-09-11 11:47 | CASEMGMT ---
Addendum entered by Neha Sandoval 09/11/22 15:03: [facility]. The information is in SW note from 09/08/22, once pt makes a decision SW can pass on this information to the appropriate facility. JAMARI Lerma Original Note: [facility]. [facility] has said that they do not have a bed, and do not anticipate having a bed next week either but SW can check back. [facility] has not indicated whether or not they can take the pt. SW spoke w/pt. SW explained that [facility] may not have a bed, [facility] accepted and we are still waiting for an answer from [facility]. SW inquired if pt would want to go to [facility]. Pt state he would [facility] go to [facility]. SW explained we can follow up again next week, as he will be here through the weekend. Pt states understanding. Plan: SNF, facility still TBD. Pt here through the weekend. JAMARI Lerma
[2022-09-11] MEDS: Sodium Polystyrene Sulfonate 15 GM/60 ML UDC PO (12:04)
[2022-09-11] MEDS: 0.9% Saline Lock 10 ML Syringe IV (12:05)
--- NOTE | 2022-09-11 13:11 | PCM.PN.REN ---
Subjective Subjective No new complaints. Objective Data Objective Data Vital Signs: Vital Signs Temp Pulse Resp BP Pulse Ox O2 Del Method 98.1 F 77 20 H 119/70 97 Room Air 09/11/22 08:40 09/11/22 08:42 09/11/22 08:40 09/11/22 08:40 09/11/22 08:40 09/11/22 08:40 Oxygen Delivery Method [5] Room Air Oxygen Delivery Method [4] Room Air Oxygen Delivery Method [3] Room Air Oxygen Delivery Method [2] Room Air Oxygen Delivery Method [1 ( Room Air Initial Baseline)] Oxygen Delivery Method Room Air Weight: 70.715 kg Body Mass Index (BMI) 25.0 Intake & Output: Intake and Output for Last 24 Hours 09/09/22 09/10/22 09/11/22 23:59 23:59 23:59 Intake Total 410.25 / 410.25 957.5 / 957.5 610 / 610 Output Total 3550 / 3550 575 / 625 490 / 490 Balance -3139.75 / -3139.75 382.5 / 332.5 120 / 120 Lab / Micro Data Result Diagrams: 09/11/22 06:30 09/11/22 06:30 Labs: Laboratory Results - last 24 hr 09/11/22 06:30: WBC 6.1, RBC 2.59 L, Hgb 8.1 L, Hct 23.8 L, MCV 91.9, MCH 31.3, MCHC 34.0, RDW Std Deviation 43.0, RDW Coeff of Itzel 13.0, Plt Count 66 L, MPV 10.4, Immature Gran % (Auto) 0.300, Neut % (Auto) 80.3 H, Lymph % (Auto) 6.9 L, [place] % (Auto) 10.2 H, Eos % (Auto) 2.0, Baso % (Auto) 0.3, Absolute Neuts (auto) 4.9, Absolute Lymphs (auto) 0.42 L, Nucleated RBC % 0, Platelet Estimate MOD DEC, RBC Morphology NORM C+C 09/11/22 06:30: Sodium 128 L, Potassium 5.4 H, Chloride 102, Carbon Dioxide 16.0 L, Anion Gap 10, BUN 109 H*, Creatinine 4.29 H, Estim Creat Clear Calc 13.63, Est GFR (MDRD) Af Amer 18 L, Est GFR (MDRD) Non-Af 14 L, BUN/Creatinine Ratio 25.4 H, Glucose 95, Calcium 7.9 L, Total Bilirubin 0.60, AST 5 L, ALT 15 L, Alkaline Phosphatase 74, Total Protein 4.9 L, Albumin 1.9 L, Globulin 3.0, Albumin/Globulin Ratio 0.6 L 09/11/22 08:20: Urine Osmolality 312, Ur Random Sodium 21, Urine Creatinine 169.00, Urine Potassium 51.0, Urine Chloride 24, Urine Urea Nitrogen 367 Micro: Microbiology 09/06/22 23:25 Stool Stool Occult Blood (NAFISA) - Final Occult Blood Positive Physical Exam Narrative Alert awake no obvious distress no pallor no icterus no JVD s1s2 no murmurs lungs clear abdomen soft no organomegaly no edema no cyanosis [place] + Assessment & Plan Assessment/Plan (1) Acute renal failure: (2) Acute hyponatremia: (3) Hyperkalemia: (4) Dyspnea on exertion: PLAN: Plan 72-year-old male who presented to the emergency room with complaints of shortness of breath. Nephrology consulted as patient noted to have elevated serum creatinine, hyperkalemia and hyponatremia. Past medical history (obtained from [place]) includes hypertension, hypothyroidism, prostate carcinoma (diagnosed 2017) on active surveillance, no surgical intervention. -SHADY, unclear cause. Able to obtain past records from [place]: serum creatinine 1.0 mg/dL July 01, 2022 and August 09, 2020 serum creatinine 1.1 mg/dL. On admission, 09/03 serum creatinine 3.48, peaked 3.65, remains essentially the same.renal ultrasound without any hydronephrosis. Serologies came back, all serologies are negative. Pre-existing thrombocytopenia, previous platelet count around 80,000, now around 50,000. -Hypervolemic hyponatremia improved with diuresis. Sodium 125 on admission and today sodium 129. Patient has normal baseline sodium per [place] labs. - Chest x-ray showed bilateral pleural effusions, noted to have elevated BNP. Echo from 09/04: EF 60%, moderate pulmonary hypertension with small pericardial effusion, moderate size left pleural effusion, indeterminate diastolic dysfunction. CT of chest bilateral pleural effusions right slightly greater than left. received Lasix, symptomatically better. -Chronic thrombocytopenia. Platelet 56 on admission, currently 51. Past records from [place]: July 01, 2022 platelet 88 and March 14, 2021 platelet 78. Patient has chronic DVT, eliquis on hold. GI consulted for +FOBT 09/11/2022. All serologies are negative. Called pathology, they should call me by end of today with a preliminary read. Creatinine is worsening. I will start him on low-dose IV fluids for today. Urine output is present. Discussed with hospitalist. I did talk to him briefly about dialysis. I do not think he has mental acuity to understand that complex medical decisions involved. He said when I go home, I will write what ever money is needed as check for me to get out of here. He lives at home, apartment on the second floor. Apparently he looked at the [facility] in [place] for [facility] but there was no spots. Will likely need to go to local rehab/[facility]. We may have to do temporary dialysis till any treatment starts working. We will make final decision depending on the kidney biopsy results.
[2022-09-11] MEDS: Acetaminophen 325 MG Tablet 650 MG PO (14:36)
--- NOTE | 2022-09-11 18:13 | PCA ---
Patient visitor present in room, states that he just found out about an hour ago that he is patients POA, patient visitor is Alan Sandoval, Alan has paper work present with him, he provided this sec. with [facility], Living Will and general durable power of banking attorney. He stated he would like to speak with a social services assistant about getting pt into [facility]. let him know a SW will be in Wednesday and then not again until wednesday.
--- NOTE | 2022-09-11 18:54 | NURSING ---
pt is sleeping, wakens easily.
[2022-09-11] MEDS: Polyethylene Glycol 3350 17 GM PACKET PO (21:40)
[2022-09-12] VITALS (8 sets, daily range): BP systolic 122–160; BP diastolic 70–88; PULSE 66–76; RESP 16–18; TEMP 36.6–36.9; O2SAT 96–99; BMI 28.0
[2022-09-12 06:05] LABS: Absolute Lymphocyte Count 0.53 X10^3/uL (0.83-4.51); Absolute Neutrophil Count 2.7 X10^3/uL (2.0-7.7); Basophil# 0.01 X10^3/uL; Basophil% 0.3 % (0-1); Eosinophil# 0.16 X10^3/uL; Eosinophils% 4.1 % (0-5); Hematocrit 20.1 % (40-54); Hemoglobin 6.9 g/dL (13.0-16.5); Lymphocyte # 0.53 X10^3/ul (0.83-4.51); Lymphocyte % 13.5 % (19-41); Mean Corp Hgb Conc 34.3 g/dL (32-36); Mean Corpuscular Hgb 30.8 pg (27.0-32.0); Mean Corpuscular Volume 89.7 fL (80-94); Mean Platelet Vol. 11.2 fl (6.2-12.0); Monocyte# 0.51 X10^3/uL; NRBC Flagged by Analyzer 0 % (0-5); Neutrophil % 68.6 % (47-70); POSITIVE COUNT YES; POSITIVE DIFFERENTIAL YES; Platelet Count 57 K/mm3 (150-450); RBC Distribution Width CV 12.7 % (11.6-14.6); RBC Distribution Width SD 41.7 fl (35.1-43.9); Red Blood Count 2.24 M/mm3 (4.6-6.2); White Blood Count 3.9 K/mm3 (4.4-11.0)
[2022-09-12] MEDS: Nystatin Powder 15gm Bottle 1 APPLIC TOPICAL ×3 (06:31→21:56)
[2022-09-12] MEDS: Glycerin/Hypromellose/PEG400 15 ml Bottle 1 DRP EACH EYE ×3 (06:32→21:55)
[2022-09-12] MEDS: Levothyroxine 25 MCG TABLET PO (06:32)
[2022-09-12 06:37] LABS: Differential Indicated SCAN CRITERIA MET
[2022-09-12 06:52] LABS: ALB/GLOB Ratio 0.7 RATIO (0.9-2.4); AST(SGOT) 7 U/L (15-37); Alanine Aminotransfer ALT/SGPT 11 U/L (16-61); Albumin, Serum 1.8 g/dL (3.2-5.0); Alkaline Phosphatase 61 U/L (45-117); Anion Gap 10 (5-15); BUN 107 mg/dL (7-18); BUN/Creat Ratio 25.5 RATIO (10-20); Calcium,Total 7.1 mg/dL (8.5-10.1); Chloride 98 mmol/L (98-107); EST Glomerular Filtration Rate 15 mL/min (>60); Est Glom Filt Rate - Afr Amer 18 mL/min (>60); Estimated Creatinine Clearance 13.92 ml/min; Ferritin 457 ng/mL (26-388); Globulin 2.5 g/dL (2.2-4.2); Glucose 116 mg/dL (74-106); Iron 48 ug/dL (65-175); Iron Binding Capacity,Total 135 ug/dL (250-450); PERCENT IRON SATURATION 35.6 % (15.0-55.0); Potassium 4.4 mmol/L (3.5-5.1); Protein, Total 4.3 g/dL (6.4-8.2); Sodium Level 128 mmol/L (136-145)
[2022-09-12 07:07] LABS: Differential Comment SCANNED
[2022-09-12 07:08] LABS: Platelet Estimate MOD DEC (ADEQ)
--- NOTE | 2022-09-12 07:16 | PN.HOSP_ITS ---
Reason for Visit Reason for Visit: Diagnoses Anemia, unspecified (09/03/22) Thrombocytopenia, unspecified (09/03/22) Hypo-osmolality and hyponatremia (09/03/22) Hyperkalemia (09/03/22) Acute kidney failure, unspecified (09/03/22) Other forms of dyspnea (09/03/22) Subjective Subjective Patient sitting up in bed eating, in no acute distress Objective Data Objective Data Vital Signs: Vital Signs Temp Pulse Resp BP Pulse Ox O2 Del Method 98.5 F 71 18 160/77 H 96 Room Air 09/12/22 02:10 09/12/22 02:10 09/12/22 02:10 09/12/22 02:10 09/12/22 02:10 09/12/22 02:10 Oxygen Delivery Method [5] Room Air Oxygen Delivery Method [4] Room Air Oxygen Delivery Method [3] Room Air Oxygen Delivery Method [2] Room Air Oxygen Delivery Method [1 ( Room Air Initial Baseline)] Oxygen Delivery Method Room Air Weight: 79 kg Body Mass Index (BMI) 28.0 Intake & Output: Intake and Output for Last 24 Hours 09/10/22 09/11/22 09/12/22 23:59 23:59 23:59 Intake Total 957.5 / 957.5 844.25 / 844.25 1140 / 1140 Output Total 575 / 625 600 / 750 250 / 250 Balance 382.5 / 332.5 244.25 / 94.25 890 / 890 Lab / Micro Data Result Diagrams: 09/12/22 05:24 09/12/22 05:24 Labs: Laboratory Results - last 24 hr 09/11/22 06:30: Platelet Estimate MOD DEC, RBC Morphology NORM C+C 09/11/22 06:30: Sodium 128 L, Potassium 5.4 H, Chloride 102, Carbon Dioxide 16.0 L, Anion Gap 10, BUN 109 H*, Creatinine 4.29 H, Estim Creat Clear Calc 13.63, Est GFR (MDRD) Af Amer 18 L, Est GFR (MDRD) Non-Af 14 L, BUN/Creatinine Ratio 25.4 H, Glucose 95, Calcium 7.9 L, Total Bilirubin 0.60, AST 5 L, ALT 15 L, Alkaline Phosphatase 74, Total Protein 4.9 L, Albumin 1.9 L, Globulin 3.0, [place] min/Globulin Ratio 0.6 L 09/11/22 08:20: Urine Osmolality 312, Ur Random Sodium 21, Urine Creatinine 169.00, Urine Potassium 51.0, Urine Chloride 24, Urine Urea Nitrogen 367 09/12/22 05:24: Sodium 128 L, Potassium 4.4, Chloride 98, Carbon Dioxide 20.0 L, Anion Gap 10, BUN 107 H*, Creatinine 4.20 H, Estim Creat Clear Calc 13.92, Est GFR (MDRD) Af Amer 18 L, Est GFR (MDRD) Non-Af 15 L, BUN/Creatinine Ratio 25.5 H , Glucose 116 H, Calcium 7.1 L, Iron 48 L, TIBC 135 L, Iron Saturation 35.6, Ferritin 457 H, Total Bilirubin 0.50, AST 7 L, ALT 11 L, Alkaline Phosphatase 61, Total Protein 4.3 L, Albumin 1.8 L, Globulin 2.5, Albumin/Globulin Ratio 0.7 L 09/12/22 05:24: WBC 3.9 L, RBC 2.24 L, Hgb 6.9 L, Hct 20.1 L, MCV 89.7, MCH 30.8, MCHC 34.3, RDW Std Deviation 41.7, RDW Coeff of Itzel 12.7, Plt Count 57 L, MPV 11.2, Immature Gran % (Auto) 0.500, Neut % (Auto) 68.6, Lymph % (Auto) 13.5 L, [place] % (Auto) 13.0 H, Eos % (Auto) 4.1, Baso % (Auto) 0.3, Absolute Neuts (au to) 2.7, Absolute Lymphs (auto) 0.53 L, Nucleated RBC % 0, Differential Comment SCANNED, Diff Path Review August foll, Platelet Estimate MOD DEC Micro: Microbiology 09/06/22 23:25 Stool Stool Occult Blood (NAFISA) - Final Occult Blood Positive Physical Exam Narrative General: Alert, answering questions appropriately HEENT: Atraumatic, normocephalic Eyes: Anicteric, normal conjunctiva, extraocular movements grossly intact Neck: Supple Respiratory: No respiratory distress, decent airflow GI: Soft, nontender, nondistended Extremities: Trace to 1+ lower extremity edema pitting Musculoskeletal: Moving all extremities Neuro: No overt focal neurological deficits Skin: No rashes appreciated Psych: Cooperative Assessment & Plan Assessment/Plan (1) Acute renal failure: (2) Acute hyponatremia: (3) Hyperkalemia: (4) Dyspnea on exertion: (5) Acute kidney injury: PLAN: Plan #SHADY/acute renal failure/urinary retention/hematuria -Creatinine 3.48 in the ED with a BUN of 78 and a potassium of 5.7 -No previous labs and therefore do not have a baseline however he denied any previous problem with kidneys -Trend BMP -Was given IVF however given BNP and clinical picture may in fact be overloaded and creatinine did not improve with IVF, will hold at this time pending studies -Creatinine virtually unchanged this morning at 3.47, will obtain urine studies -Renal ultrasound with renal cysts and small stones versus prominent vessels on the left -Wall thickening of urinary bladder, unclear significance -09/05: Did improve some with diuresis, will increase diuresis to 40 IV twice daily today. -09/06: Creatinine slowly trending back down with diuresis however BUN continues to climb causing a non-anion gap metabolic acidemia. Given disproportionate BUN and dropping hemoglobin will check FOBT. Also check postvoid residual to assess for any urinary retention contributing -09/07: Worsened today with increased hyperkalemia, continued hyponatremia, continued acidemia with BUN of 91, hyperkalemia cocktail, nephrology consult -09/08: Patient was retaining urine after 2 post void trials and Quinteros was placed, was passing small clots and red urine and had three-way Quinteros inserted with irrigation and a large clot. No urology coverage this week so urology not consulted, do not feel he needs urgently transferred at this time. Will consider Noncon CT abdomen to assess for any stones in his kidneys that may be contributing to hematuria as they required stones on ultrasound but not definitive, unable to get contrasted CT to assess for any additional pathology due to kidney function. Poor urine output after initial Quinteros placement, will hold Lasix pending nephro input as he may be becoming intravascularly depleted. Patient's autoimmune work-up pending. -09/09: Patient agreeable to biopsy at our institution, was made n.p.o. last night in the event he was agreeable, this has been ordered. Discussed with nephrology -09/10: [facility] now available and baseline creatinine closer to 1. Kidney biopsy this a.m., results pending. No longer requiring frequent bladder irrigation as urine is now clear and hematuria resolved -09/11: Kidney biopsy without nephritis or ATN, electron microscopy comes back Wednesday. May need to explore immunotherapy or dialysis but will need to clarify patient wishes and goals of care. Started on a sodium bicarb drip. Discussed with nephrology -09/12: Very slight improvement on bicarb drip but did trend in the right direction from a creatinine of 4.29 and BUN of 109 down to creatinine 4.20 with BUN 107 #Thrombocytopenia/normocytic anemia- FOBT+/slow upper GI bleed secondary to multiple duodenal ulcers -On presentation hemoglobin 12.3 and is down trended and is now 9.6 despite diuresis which should cause volume contraction if anything -We will check FOBT especially given BUN continues to worsen with improvement kidney function seems to be disproportionate -09/07: Downtrending hemoglobin, increasing BUN despite improving creatinine, FOBT positive. Will consult GI especially given he will need anticoagulation due to DVT. Continue to hold Eliquis -09/08: Pending GI eval -09/10: Had upper endoscopy yesterday which showed erythematous mucosa in the gastric body with multiple oozing duodenal ulcers with pigmented material which were injected, treated with heater probe and biopsied. Discussed with GI and they wanted PPI twice daily if cleared to do so with nephrology. Discussed with nephrology and they are agreeable so he had IV PPI every 12 ordered. Will ultimately need evaluation for cirrhosis with his hyponatremia and bicytopenia. Liver ultrasound ordered -09/11: Liver biopsy only demonstrated fatty infiltration of the liver. Continue present measures and PPI. Hemoglobin has progressively been downtrending, will check iron studies -09/12: Iron panel fairly consistent with anemia of chronic disease however given low iron and low hemoglobin we will start a supplementation and has hemoglobin of 6.9 today but no evidence/signs symptoms of bleeding, will transfuse 1 unit packed red blood cells, suspect multifactorial especially given he is now received some fluids #Non-anion gap metabolic acidemia -Suspect largely due to worsening uremia however would anticipate this will cause a high anion gap so Likely Multifactorial -Address underlying etiology -09/11: Started on bicarb drip per nephro #Hyperkalemia -Likely secondary to acute renal failure -5.7 on admission now 5.4 -6/3: Improving with diuresis and improving renal function -09/06: Continue to monitor, continue diuresis -09/07: Worse noted to 5.9, hyperkalemia protocol, nephrology consult due to patient failing present measures -09/08: Repeat was within normal limits, potassium on upper end of normal today but not elevated, continue to address underlying etiology, low potassium diet -09/11: Kayexalate, started on bicarb drip -09/12: Improved #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 -Lower extremity duplex with left popliteal and tibial peroneal trunk chronic DVT -Given proximal component patient qualifies for anticoagulation, do not see contraindication to this -Given they are chronic in nature do not feel he needs loaded and will start Eliquis 5 twice daily -09/05: Given platelets less than 50 today Eliquis held, will place order for SCDs -09/06: Platelets 54 today however given downtrending hemoglobin will check FOBT continue with SCDs prior to resuming full dose anticoagulation -09/07: FOBT positive with uptrending BUN and anemia and thrombocytopenia, continue to hold Eliquis, GI consult -09/10: Continue to hold Eliquis given his thrombocytopenia and kidney biopsy however okay to resume per GI once able to do so #Shortness of breath/bilateral pleural effusions/moderate pulmonary hypertension -BNP 906 in ED -Bilateral lower extremity edema, suspect overload -Chest x-ray with bibasilar pleural effusions and atelectasis with a 9 mm nodule density projecting over the left fifth anterior rib recommending CT be performed to exclude neoplasm, will order chest ct -We will additionally get echocardiogram -09/06: Echo from 09/04 with EF 60%, moderate mitral valve insufficiency, moderate pulmonary hypertension with small pericardial effusion and moderate-sized left pleural effusion and indeterminate diastolic dysfunction. Chest CT demonstrated bilateral pleural effusions right slightly greater than left with bibasilar atelectasis. Presently being diuresed. We will add daily weights and I's and O's. Has prolonged expiratory phase and do suspect he may have component of COPD, will start nebs, if no improvement can DC -09/07: Patient on Lasix and nebs, respiratory status seems to be improving -09/08: Respiratory status stable, Lasix dose held -09/09: Held Lasix with present kidney function but if deemed appropriate to resume from nephrology standpoint agreeable to do so -09/11: Respiratory status stable #Hypothyroidism -Continue Synthroid #Hyponatremia -Sodium 125 on presentation and 126 in a.m. -TSH 4.11 -We will check serum and urine osmolalities and urine lytes -09/05: Suspect this is secondary to overload, continue diuresis, sodium did slightly improved today -09/06: Continues to very slightly improved -09/07: Fairly unchanged today -09/10: Stable #Elevated troponin -Suspect type II given elevated BNP and renal failure -Original troponin 94 and down trended to 60 #hard of hearing -complicates care, medical course, recovery, and prognosis #DVT ppx: Held home dose of Eliquis due to platelets, DVT found is chronic, SCDs Jeanette Yo MD Time spent in the patient's overall evaluation,decision-making process, review of diagnostic data, adjustment of management, discussion with other providers, nursing nursing and ancillary staff involved in patient's care documentation, 36 minutes Charges/Coding Visit Charges Inpatient E&M: 84465 Subs Hosp L3
[2022-09-12] MEDS: Cyanocobalamin 500 MCG Tablet 1000 MCG PO (09:22)
[2022-09-12] MEDS: Menthol/Lanolin/Calamine/Znox 113 GM Tube 1 APPLIC TOPICAL ×2 (09:22→21:57)
[2022-09-12] MEDS: Metoprolol Tartrate 25 MG Tablet PO ×2 (09:23→21:56)
[2022-09-12 10:08] LABS: Dilute Prothrombin Time (dPT) 36.5 sec (0.0-47.6); Interpretation Comment: (.); PTT-LA 42.7 sec (0.0-43.5); Thrombin Time 14.2 sec (0.0-23.0); dPT Confirm Ratio 1.15 Ratio (0.00-1.34)
[2022-09-12] MEDS: Ferrous Sulfate 325 MG Tablet PO (11:28)
--- NOTE | 2022-09-12 19:40 | PN.RENAL_ITS ---
Subjective Subjective Following for acute kidney injury. The patient denies chest pain, shortness of breath, or nausea. Objective Data Objective Data Vital Signs: Vital Signs Temp Pulse Resp BP Pulse Ox O2 Del Method 97.8 F 66 16 133/73 H 99 Room Air 09/12/22 13:15 09/12/22 13:15 09/12/22 13:15 09/12/22 13:15 09/12/22 13:15 09/12/22 13:15 Oxygen Delivery Method [5] Room Air Oxygen Delivery Method [4] Room Air Oxygen Delivery Method [3] Room Air Oxygen Delivery Method [2] Room Air Oxygen Delivery Method [1 ( Room Air Initial Baseline)] Oxygen Delivery Method Room Air Weight: 79 kg Body Mass Index (BMI) 28.0 Intake & Output: Intake and Output for Last 24 Hours 09/10/22 09/11/22 09/12/22 23:59 23:59 23:59 Intake Total 957.5 / 957.5 844.25 / 844.25 2760.00 / 2760.00 Output Total 575 / 625 600 / 750 325 / 325 Balance 382.5 / 332.5 244.25 / 94.25 2435.00 / 2435.00 Lab / Micro Data Result Diagrams: 09/12/22 05:24 09/12/22 05:24 Labs: Laboratory Results - last 24 hr 09/08/22 06:10: PT Diluted 36.5, PT Ratio 1.15, Thrombin Time 14.2, Lupus Anticoag aPTT 42.7, Dil Jered Viper Venom 44.0, Lupus Anticoag Interp Comment: 09/12/22 05:24: Sodium 128 L, Potassium 4.4, Chloride 98, Carbon Dioxide 20.0 L, Anion Gap 10, BUN 107 H*, Creatinine 4.20 H, Estim Creat Clear Calc 13.92, Est GFR (MDRD) Af Amer 18 L, Est GFR (MDRD) Non-Af 15 L, BUN/Creatinine Ratio 25.5 H , Glucose 116 H, Calcium 7.1 L, Iron 48 L, TIBC 135 L, Iron Saturation 35.6, Ferritin 457 H, Total Bilirubin 0.50, AST 7 L, ALT 11 L, Alkaline Phosphatase 61, Total Protein 4.3 L, Albumin 1.8 L, Globulin 2.5, Albumin/Globulin Ratio 0.7 L 09/12/22 05:24: WBC 3.9 L, RBC 2.24 L, Hgb 6.9 L, Hct 20.1 L, MCV 89.7, MCH 30.8, MCHC 34.3, RDW Std Deviation 41.7, RDW Coeff of Itzel 12.7, Plt Count 57 L, MPV 11.2, Immature Gran % (Auto) 0.500, Neut % (Auto) 68.6, Lymph % (Auto) 13.5 L, [place] % (Auto) 13.0 H, Eos % (Auto) 4.1, Baso % (Auto) 0.3, Absolute Neuts (auto) 2.7, Absolute Lymphs (auto) 0.53 L, Nucleated RBC % 0, Differential Comment SCANNED, Diff Path Review August, Platelet Estimate MOD 09/12/22 07:30: Blood Type A NEGATIVE, Antibody Screen NEGATIVE, Crossmatch See Detail Micro: Microbiology 09/06/22 23:25 Stool Stool Occult Blood (NAFISA) - Final Occult Blood Positive Physical Exam Narrative Alert awake no obvious distress no pallor no icterus no JVD s1s2 no murmurs lungs clear abdomen soft no organomegaly no edema no cyanosis Assessment & Plan Assessment/Plan (1) Acute renal failure: (2) Acute hyponatremia: (3) Hyperkalemia: (4) Dyspnea on exertion: PLAN: Plan 72-year-old male who presented to the emergency room with complaints of shortness of breath. Nephrology consulted as patient noted to have elevated serum creatinine, hyperkalemia and hyponatremia. Past medical history (obtained from [place]) includes hypertension, hypothyroidism, prostate carcinoma (diagnosed 2017) on active surveillance, no surgical intervention. Acute kidney injury. Able to obtain past records from [place]: serum creatinine 1.0 mg/dL July 01, 2022 and August 09, 2020 serum creatinine 1.1 mg/dL. On admission, 09/03 serum creatinine 3.48. So far, serum creatinine peaked 4.29 mg/dL on 09/11/2022. Renal ultrasound without any hydronephrosis. Serologies came back, all serologies are negative. Pre-existing thrombocytopenia, previous platelet count around 80,000, now around 50,000. Kidney biopsy was done on 09/10/2022. Preliminary result showed nephrosclerosis without active inflammation or immune complex deposition on immunofluorescence. EM is still pending. Renal function has remained stable over the last 24 hours. Serum creatinine is 4.20 mg/dL without hyperkalemia. No urgent need for kidney replacement therapy. However, if there is no sign ificant improvement of renal function in next 48 to 72 hours, he may still need at least temporary dialysis. Recheck renal function again tomorrow. Acute metabolic acidosis. Serum bicarbonate level is better today at 20 mmol/L on sodium bicarb infusion. Potassium is also improved with improving bicarbonate level. Continue sodium bicarbonate infusion for 1 more day. If serum bicarbonate level is still 20 mmol/L or above, we can transition him to LR tomorrow. Hyperkalemia. Potassium level was 5.9 mmol/L on 09/07/2022. Potassium level is better today at 4.4 mmol/L. We will keep serum bicarbonate above 20 mmol/L to attenuate hyperkalemia. There fore, keep the patient on sodium bicarbonate infusion for 1 more day. Recheck potassium and bicarbonate level again tomorrow. Hypervolemic hyponatremia due to SHADY improved with prior diuresis. Sodium 125 on admission and today sodium 128 without worrisome symptoms. Patie nt has normal baseline sodium per [place] labs. We will continue to monitor. Pancytopenia. The patient has a history of chronic thrombocytopenia. Platelet 56 on admission, currently 57.. Past records from [place]: July 01, 2022 platelet 88 and March 14, 2021 platelet 78. Patient has chronic DVT, Eliquis is on hold. He also has acute anemia. No evidence of thrombotic microangiopathy on kidney biopsy. GI consulted for +FOBT
[2022-09-12] MEDS: Polyethylene Glycol 3350 17 GM PACKET PO (21:56)
[2022-09-13 04:45] VITALS: BMI 28.7
[2022-09-13] MEDS: Levothyroxine 25 MCG TABLET PO (05:07)
[2022-09-13] MEDS: Glycerin/Hypromellose/PEG400 15 ml Bottle 1 DRP EACH EYE ×3 (05:09→22:58)
[2022-09-13 05:10] VITALS: BP 140/73; PULSE 66; RESP 20; TEMP 36.9; O2SAT 97
[2022-09-13 06:17] LABS: Absolute Lymphocyte Count 0.56 X10^3/uL (0.83-4.51); Basophil# 0.03 X10^3/uL; Basophil% 0.7 % (0-1); Eosinophil# 0.18 X10^3/uL; Eosinophils% 4.1 % (0-5); Lymphocyte # 0.56 X10^3/ul (0.83-4.51); Lymphocyte % 12.7 % (19-41); Mean Corp Hgb Conc 34.6 g/dL (32-36); Mean Corpuscular Hgb 30.6 pg (27.0-32.0); Mean Corpuscular Volume 88.4 fL (80-94); Mean Platelet Vol. 11.4 fl (6.2-12.0); Monocyte% 13.6 % (0-10); NRBC Flagged by Analyzer 0 % (0-5); Neutrophil # 3.02 X10^3/uL (2.7-7.7); Neutrophil % 68.2 % (47-70); POSITIVE COUNT YES; POSITIVE DIFFERENTIAL YES; Platelet Count 71 K/mm3 (150-450); RBC Distribution Width SD 42.1 fl (35.1-43.9); Red Blood Count 2.94 M/mm3 (4.6-6.2); White Blood Count 4.4 K/mm3 (4.4-11.0)
[2022-09-13 06:21] LABS: Differential Indicated SCAN CRITERIA MET
[2022-09-13 07:02] LABS: ALB/GLOB Ratio 0.7 RATIO (0.9-2.4); AST(SGOT) 8 U/L (15-37); Alanine Aminotransfer ALT/SGPT 12 U/L (16-61); Albumin, Serum 1.9 g/dL (3.2-5.0); Alkaline Phosphatase 70 U/L (45-117); Anion Gap 9 (5-15); BUN 107 mg/dL (7-18); Calcium,Total 7.1 mg/dL (8.5-10.1); Chloride 93 mmol/L (98-107); Creatinine, Serum 4.28 mg/dL (0.70-1.30); EST Glomerular Filtration Rate 15 mL/min (>60); Est Glom Filt Rate - Afr Amer 18 mL/min (>60); Estimated Creatinine Clearance 13.66 ml/min; Globulin 2.7 g/dL (2.2-4.2); Glucose 107 mg/dL (74-106); Potassium 4.2 mmol/L (3.5-5.1); Protein, Total 4.6 g/dL (6.4-8.2); Sodium Level 126 mmol/L (136-145)
--- NOTE | 2022-09-13 07:40 | PN.HOSP_ITS ---
Reason for Visit Reason for Visit: Diagnoses Anemia, unspecified (09/03/22) Thrombocytopenia, unspecified (09/03/22) Hypo-osmolality and hyponatremia (09/03/22) Hyperkalemia (09/03/22) Acute kidney failure, unspecified (09/03/22) Other forms of dyspnea (09/03/22) Subjective Subjective Patient having some leg and scrotal swelling which she finds uncomfortable Objective Data Objective Data Vital Signs: Vital Signs Temp Pulse Resp BP Pulse Ox O2 Del Method 98.4 F 66 20 H 140/73 H 97 Room Air 09/13/22 05:10 09/13/22 05:10 09/13/22 05:10 09/13/22 05:10 09/13/22 05:10 09/13/22 05:10 Oxygen Delivery Method [5] Room Air Oxygen Delivery Method [4] Room Air Oxygen Delivery Method [3] Room Air Oxygen Delivery Method [2] Room Air Oxygen Delivery Method [1 ( Room Air Initial Baseline)] Oxygen Delivery Method Room Air Weight: 81 kg Body Mass Index (BMI) 28.7 Intake & Output: Intake and Output for Last 24 Hours 09/11/22 09/12/22 09/13/22 23:59 23:59 23:59 Intake Total 844.25 / 844.25 2870.00 / 2870.00 1125 / 1125 Output Total 600 / 750 325 / 425 100 / 100 Balance 244.25 / 94.25 2545.00 / 2445.00 1025 / 1025 Lab / Micro Data Result Diagrams: 09/13/22 05:16 09/13/22 05:16 Labs: Laboratory Results - last 24 hr 09/08/22 06:10: PT Diluted 36.5, PT Ratio 1.15, Thrombin Time 14.2, Lupus Anticoag aPTT 42.7, Dil Jered Viper Venom 44.0, Lupus Anticoag Interp Comment: 09/12/22 07:30: Blood Type A NEGATIVE, Antibody Screen NEGATIVE, Crossmatch See Detail 09/13/22 05:16: Sodium 126 L, Potassium 4.2, Chloride 93 L, Carbon Dioxide 24.0, Anion Gap 9, BUN 107 H*, Creatinine 4.28 H, Estim Creat Clear Calc 13.66, Est GFR (MDRD) Af Amer 18 L, Est GFR (MDRD) Non-Af 15 L, BUN/Creatinine Ratio 25.0 H , Glucose 107 H, Calcium 7.1 L, Total Bilirubin 0.80, AST 8 L, ALT 12 L, Alkaline Phosphatase 70, Total Protein 4.6 L, Albumin 1.9 L, Globulin 2.7, Albumin/Globulin Ratio 0.7 L 09/13/22 05:16: WBC 4.4, RBC 2.94 L, Hgb 9.0 L, Hct 26.0 L, MCV 88.4, MCH 30.6, MCHC 34.6, RDW Std Deviation 42.1, RDW Coeff of Itzel 13.0, Plt Count 71 L, MPV 11.4, Immature Gran % (Auto) 0.700, Neut % (Auto) 68.2, Lymph % (Auto) 12.7 L, Valley % (Auto) 13.6 H, Eos % (Auto) 4.1, Baso % (Auto) 0.7, Absolute Neuts (auto) 3.0, Absolute Lymphs (auto) 0.56 L, Nucleated RBC % 0 Micro: Microbiology 09/06/22 23:25 Stool Stool Occult Blood (NAFISA) - Final Occult Blood Positive Physical Exam Narrative General: Alert, oriented HEENT: Atraumatic, normocephalic Eyes: Anicteric, normal conjunctiva, extraocular movements grossly intact Neck: Supple Respiratory: Diminished at the bases, normal respiratory effort Cardiovascular: Regular rate GI: Soft, nontender, nondistended Extremities: 1+ lower extremity edema Musculoskeletal: Moving all extremities Neuro: No overt focal neurological deficits Skin: Does have some scrotal swelling and has some blood around urethral meatus where it appears he has been pulling on Quinteros, scrotum with general discomfort, swelling diffuse and not localized, did have slight skin tear on bottom of scrotum as well, no discharge from urethral meatus aside from the blood surrounding Psych: Cooperative Assessment & Plan Assessment/Plan (1) Acute renal failure: (2) Acute hyponatremia: (3) Hyperkalemia: (4) Dyspnea on exertion: (5) Acute kidney injury: PLAN: Plan #SHADY/acute renal failure/urinary retention/hematuria -Creatinine 3.48 in the ED with a BUN of 78 and a potassium of 5.7 -No previous labs and therefore do not have a baseline however he denied any previous problem with kidneys -Trend BMP -Was given IVF however given BNP and clinical picture may in fact be overloaded and creatinine did not improve with IVF, will hold at this time pending studies -Creatinine virtually unchanged this morning at 3.47, will obtain urine studies -Renal ultrasound with renal cysts and small stones versus prominent vessels on the left -Wall thickening of urinary bladder, unclear significance -09/05: Did improve some with diuresis, will increase diuresis to 40 IV twice daily today. -09/06: Creatinine slowly trending back down with diuresis however BUN continues to climb causing a non-anion gap metabolic acidemia. Given disproportionate BUN and dropping hemoglobin will check FOBT. Also check postvoid residual to assess for any urinary retention contributing -09/07: Worsened today with increased hyperkalemia, continued hyponatremia, continued acidemia with BUN of 91, hyperkalemia cocktail, nephrology consult -09/08: Patient was retaining urine after 2 post void trials and Quinteros was placed, was passing small clots and red urine and had three-way Quinteros inserted with irrigation and a large clot. No urology coverage this week so urology not consulted, do not feel he needs urgently transferred at this time. Will consider Noncon CT abdomen to assess for any stones in his kidneys that may be contributing to hematuria as they required stones on ultrasound but not definitive, unable to get contrasted CT to assess for any additional pathology due to kidney function. Poor urine output after initial Quinteros placement, will hold Lasix pending nephro input as he may be becoming intravascularly depleted. Patient's autoimmune work-up pending. -09/09: Patient agreeable to biopsy at our institution, was made n.p.o. last night in the event he was agreeable, this has been ordered. Discussed with nephrology -09/10: [facility] now available and baseline creatinine closer to 1. Kidney biopsy this a.m., results pending. No longer requiring frequent bladder irrigation as urine is now clear and hematuria resolved -09/11: Kidney biopsy without nephritis or ATN, electron microscopy comes back Wednesday. May need to explore immunotherapy or dialysis but will need to clarify patient wishes and goals of care. Started on a sodium bicarb drip. Discussed with nephrology -09/12: Very slight improvement on bicarb drip but did trend in the right dir ection from a creatinine of 4.29 and BUN of 109 down to creatinine 4.20 with BUN 107 -09/13: Creatinine hovering around the same, based on I's and O's less output overnight compared to the day before, had been receiving fluids and acidosis has improved, based on nephro's note given bicarb normalized to 24 and patient beginning get fluid overloaded have held fluids for the afternoon #Scrotal swelling -Examined bedside with patient's RN -Patient had been receiving fluids due to his kidney function and acidosis, does have some more swelling in his scrotum and lower extremities now as well as inc rease in effusions, does not have respiratory complaints but does have discomfort in legs and scrotum, will obtain stat CT to evaluate for any air or any other concerning signs or symptoms -No discharge from the urethral meatus, swelling generalized and not localized, no necrotic tissue appreciated, no foul odor. Management/further plan pending CT results #Thrombocytopenia/normocytic anemia- FOBT+/slow upper GI bleed secondary to multiple duodenal ulcers -On presentation hemoglobin 12.3 and is down trended and is now 9.6 despite diuresis which should cause volume contraction if anything -We will check FOBT especially given BUN continues to worsen with improvement kidney function seems to be disproportionate -09/07: Downtrending hemoglobin, increasing BUN despite improving creatinine, FOBT positive. Will consult GI especially given he will need anticoagulation due to DVT. Continue to hold Eliquis -09/08: Pending GI eval -09/10: Had upper endoscopy yesterday which showed erythematous mucosa in the gastric body with multiple oozing duodenal ulcers with pigmented material which were injected, treated with heater probe and biopsied. Discussed with GI and they wanted PPI twice daily if cleared to do so with nephrology. Discussed with nephrology and they are agreeable so he had IV PPI every 12 ordered. Will ultimately need evaluation for cirrhosis with his hyponatremia and bicytopenia. Liver ultrasound ordered -09/11: Liver biopsy only demonstrated fatty infiltration of the liver. Continue present measures and PPI. Hemoglobin has progressively been downtrending, will check iron studies -09/12: Iron panel fairly consistent with anemia of chronic disease however given low iron and low hemoglobin we will start a supplementation and has hemoglobin of 6.9 today but no evidence/signs symptoms of bleeding, will transfuse 1 unit packed red blood cells, suspect multifactorial especially given he is now received some fluids -09/13: Hemoglobin responded appropriately and is 9.0, remains on PPI IV twice daily #Non-anion gap metabolic acidemia -Suspect largely due to worsening uremia however would anticipate this will cause a high anion gap so Likely Multifactorial -Address underlying etiology -09/11: Started on bicarb drip per nephro -09/13: Bicarb improved to 24 today but does still remain uremic #Hyperkalemia -Likely secondary to acute renal failure -5.7 on admission now 5.4 -09/05: Improving with diuresis and improving renal function -09/06: Continue to monitor, continue diuresis -09/07: Worse noted to 5.9, hyperkalemia protocol, nephrology consult due to patient failing present measures -09/08: Repeat was within normal limits, potassium on upper end of normal today but not elevated, continue to address underlying etiology, low potassium diet -09/11: Kayexalate, started on bicarb drip -09/12: Improved #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 -Lower extremity duplex with left popliteal and tibial peroneal trunk chronic DVT -Given proximal component patient qualifies for anticoagulation, do not see contraindication to this -Given they are chronic in nature do not feel he needs loaded and will start Eliquis 5 twice daily -09/05: Given platelets less than 50 today Eliquis held, will place order for SCDs -09/06: Platelets 54 today however given downtrending hemoglobin will check FOBT continue with SCDs prior to resuming full dose anticoagulation -09/07: FOBT positive with uptrending BUN and anemia and thrombocytopenia, continue to hold Eliquis, GI consult -09/10: Continue to hold Eliquis given his thrombocytopenia and kidney biopsy however okay to resume per GI once able to do so #Shortness of breath/bilateral pleural effusions/moderate pulmonary hypertension -BNP 906 in ED -Bilateral lower extremity edema, suspect overload -Chest x-ray with bibasilar pleural effusions and atelectasis with a 9 mm nodule density projecting over the left fifth anterior rib recommending CT be performed to exclude neoplasm, will order chest ct -We will additionally get echocardiogram -09/06: Echo from 09/04 with EF 60%, moderate mitral valve insufficiency, moderate pulmonary hypertension with small pericardial effusion and moderate-sized left pleural effusion and indeterminate diastolic dysfunction. Chest CT demonstrated bilateral pleural effusions right slightly greater than left with bibasilar atelectasis. Presently being diuresed. We will add daily weights and I's and O's. Has prolonged expiratory phase and do suspect he may have component of COPD, will start nebs, if no improvement can DC -09/07: Patient on Lasix and nebs, respiratory status seems to be improving -09/08: Respiratory status stable, Lasix dose held -09/09: Held Lasix with present kidney function but if deemed appropriate to res ume from nephrology standpoint agreeable to do so -09/11: Respiratory status stable #Hypothyroidism -Continue Synthroid #Hyponatremia -Sodium 125 on presentation and 126 in a.m. -TSH 4.11 -We will check serum and urine osmolalities and urine lytes -09/05: Suspect this is secondary to overload, continue diuresis, sodium did slightly improved today -09/06: Continues to very slightly improved -09/07: Fairly unchanged today -09/10: Stable -09/13: Vacillates but overall has been stable #Elevated troponin -Suspect type II given elevated BNP and renal failure -Original troponin 94 and down trended to 60 #hard of hearing -complicates care, medical course, recovery, and prognosis #DVT ppx: Held home dose of Eliquis due to platelets, DVT found is chronic, SCDs Jeanette Yo MD Time spent in the patient's overall evaluation,decision-making process, review of diagnostic data, adjustment of management, discussion with other providers, nursing nursing and ancillary staff involved in patient's care documentation, 45 minutes
[2022-09-13 07:54] VITALS: BP 129/69; PULSE 69; RESP 16; TEMP 36.6; O2SAT 97
[2022-09-13] MEDS: Cyanocobalamin 500 MCG Tablet 1000 MCG PO (08:10)
[2022-09-13] MEDS: Polyethylene Glycol 3350 17 GM PACKET PO ×2 (10:56→22:58)
[2022-09-13 10:57] VITALS: PULSE 69
[2022-09-13] MEDS: Metoprolol Tartrate 25 MG Tablet PO ×2 (10:57→22:59)
[2022-09-13] MEDS: Ferrous Sulfate 325 MG Tablet PO (10:58)
[2022-09-13] MEDS: Menthol/Lanolin/Calamine/Znox 113 GM Tube 1 APPLIC TOPICAL ×2 (11:00→22:58)
--- NOTE | 2022-09-13 12:02 | CT_ITS ---
STUDY: CT ABDOMEN AND PELVIS WITHOUT CONTRAST REASON FOR EXAM: Male, 72 years old. scrotal swelling, redness and pain since yesterday, hx acute renal failure, prostate cancer. Kidney biopsy last week. RADIATION DOSAGE (If Supplied By Facility): CTDIvol = ( 11.72 ) mGy, DLP = ( 805.51 ) mGycm TECHNIQUE: Transaxial images were obtained from the dome of the diaphragm to the symphysis pubis without oral contrast, and without intravenous contrast. Sagittal and coronal images were reconstructed. Individualized dose optimization techniques were used for this CT. COMPARISON: CT guided percutaneous right kidney biopsy FINDINGS: Significant anasarca. Significant scrotal edema and at least small to moderate-sized testicular hydroceles. Atherosclerotic calcifications are present in the bilateral testicular vessels. A small amount of retroperitoneal layering hemorrhage is present posterior to the right kidney in the pararenal space, which is most likely secondary to the recent CT-guided right kidney biopsy. No active hemorrhaging is seen from the adjacent right lobe of the liver or kidney or psoas muscle. This hemorrhagic collection in the right posterior pararenal space measures 6.19 x 3.95 cm. Mild scattered ascites is present throughout the abdomen and pelvis Moderate to large size bilateral pleural effusions are present with complete atelectasis of bilateral lower lobes. . Normal liver. There are multiple gallstones. Normal spleen. Normal pancreas. Normal bilateral adrenal glands. There is mild cortical atrophy of the right kidney, consistent with chronic medical renal disease. There is mild cortical atrophy of the left kidney, consistent with chronic medical renal disease. A 3 to 4 mm parenchymal stone is present in the midpole of the right kidney. Normal visualized stomach. Normal small intestine. Normal colon. The appendix is visualized and appears normal. There is diffuse atherosclerotic calcification of the abdominal aorta, without a demonstrated aneurysm. Normal inferior vena cava. Normal retroperitoneum. A Quinteros catheter and balloon are present. The bladder is collapsed around the catheter and not fluid distended. A small amount of retroperitoneal layering hemorrhage is present posterior to the right kidney in the pararenal space, is origin is not clear but no active high density hemorrhage is seen from the adjacent right lobe of the liver or kidney or psoas muscle. There are prostatic calcifications. Normal abdominal wall. Normal osseous structures. CT/Abdomen/Pelvis without Cont IMPRESSION: Right retroperitoneal/posterior pararenal hematoma most likely related to recent CT-guided right kidney biopsy. 1. A small amount of retroperitoneal layering hemorrhage is present posterior to the right kidney in the pararenal space, which is most likely secondary to the recent CT-guided right kidney biopsy. No active hemorrhaging is seen from the adjacent right lobe of the liver or kidney or psoas muscle. This hemorrhagic collection in the right posterior pararenal space measures 6.19 x 3.95 cm. 2. Significant anasarca. Significant scrotal edema and at least small to moderate-sized testicular hydroceles. Atherosclerotic calcifications are present in the bilateral testicular vessels. 3. Moderate to large size bilateral pleural effusions 4. Anasarca 5. Electronically Signed: Patrick Hogan MD at 14:59 EDT ,
[2022-09-13 13:36] VITALS: BP 138/71; PULSE 73; RESP 16; TEMP 36.6; O2SAT 94
[2022-09-13] MEDS: Nystatin Powder 15gm Bottle 1 APPLIC TOPICAL ×2 (13:39→22:57)
[2022-09-13] MEDS: 0.9% Saline Lock 10 ML Syringe IV (17:07)
[2022-09-13] MEDS: Furosemide 40 MG/4 ML Vial IV (17:07)
--- NOTE | 2022-09-13 17:12 | PCM.HOSP.N ---
Hospitalist Note CT pelvis obtained d/t swelling and scrotal discomfort- Changes consistent with anasarca including the scrotum with mild to moderate hydroceles, no signs of any air or other inflammation, discussed with nephrology and will give dose of Lasix to help with swelling, suspect this will help w/ irritation and pain. Additionally will get scrotal ultrasound and consult urology as well as instructions to elevate scrotum given patient is having irritation from the swelling and pain with the distention. Distension and irritation have been increasing over the past couple of days especially once fluids were started, given duration and symptoms with additional etiology identified do not think there is any scrotal torsion or other etiology. Discussed with patient's RN again in the evening and patient taking a nap and resting comfortably, about to get dose of Lasix. Vitally stable and in no acute distress, discussed low threshold to call with concerns if any change/other concerns arise
[2022-09-13 22:59] VITALS: BP 146/78; PULSE 83; PULSE 84; RESP 18; TEMP 36.6; O2SAT 98
[2022-09-14] VITALS (7 sets, daily range): BP systolic 120–134; BP diastolic 71–81; PULSE 80–88; RESP 14–18; TEMP 36.6–37.6; O2SAT 94–96; BMI 28.8
[2022-09-14 06:04] LABS: Absolute Lymphocyte Count 0.19 X10^3/uL (0.83-4.51); Absolute Neutrophil Count 9.2 X10^3/uL (2.0-7.7); Basophil# 0.01 X10^3/uL; Basophil% 0.1 % (0-1); Eosinophil# 0.01 X10^3/uL; Eosinophils% 0.1 % (0-5); Hematocrit 25.4 % (40-54); Hemoglobin 8.8 g/dL (13.0-16.5); Lymphocyte # 0.19 X10^3/ul (0.83-4.51); Lymphocyte % 1.9 % (19-41); Mean Corp Hgb Conc 34.6 g/dL (32-36); Mean Corpuscular Hgb 30.7 pg (27.0-32.0); Mean Corpuscular Volume 88.5 fL (80-94); Mean Platelet Vol. 10.3 fl (6.2-12.0); Monocyte# 0.71 X10^3/uL; NRBC Flagged by Analyzer 0 % (0-5); Neutrophil # 9.24 X10^3/uL (2.7-7.7); Neutrophil % 90.4 % (47-70); POSITIVE COUNT YES; POSITIVE DIFFERENTIAL YES; Platelet Count 66 K/mm3 (150-450); RBC Distribution Width SD 41.8 fl (35.1-43.9); Red Blood Count 2.87 M/mm3 (4.6-6.2); White Blood Count 10.2 K/mm3 (4.4-11.0)
[2022-09-14 06:11] LABS: Differential Indicated SCAN CRITERIA MET
[2022-09-14] MEDS: Glycerin/Hypromellose/PEG400 15 ml Bottle 1 DRP EACH EYE ×3 (06:16→22:00)
[2022-09-14] MEDS: Levothyroxine 25 MCG TABLET PO (06:16)
[2022-09-14] MEDS: Nystatin Powder 15gm Bottle 1 APPLIC TOPICAL ×3 (06:16→22:00)
[2022-09-14 06:54] LABS: Platelet Estimate MOD DEC (ADEQ)
[2022-09-14 06:57] LABS: ALB/GLOB Ratio 0.6 RATIO (0.9-2.4); AST(SGOT) 11 U/L (15-37); Alanine Aminotransfer ALT/SGPT 14 U/L (16-61); Albumin, Serum 1.7 g/dL (3.2-5.0); Alkaline Phosphatase 84 U/L (45-117); Anion Gap 11 (5-15); BUN 111 mg/dL (7-18); BUN/Creat Ratio 23.8 RATIO (10-20); Calcium,Total 7.3 mg/dL (8.5-10.1); Chloride 92 mmol/L (98-107); Creatinine, Serum 4.67 mg/dL (0.70-1.30); EST Glomerular Filtration Rate 13 mL/min (>60); Est Glom Filt Rate - Afr Amer 16 mL/min (>60); Estimated Creatinine Clearance 12.52 ml/min; Globulin 2.8 g/dL (2.2-4.2); Glucose 95 mg/dL (74-106); Magnesium 2.5 mg/dL (1.6-2.6); Phosphorus 6.6 mg/dL (2.5-4.9); Potassium 4.8 mmol/L (3.5-5.1); Protein, Total 4.5 g/dL (6.4-8.2); Sodium Level 125 mmol/L (136-145)
--- NOTE | 2022-09-14 07:00 | US_ITS ---
STUDY: SCROTUM ULTRASOUND REASON FOR EXAM: Male, 72 years old. Testicular pain TECHNIQUE: Ultrasound evaluation of the scrotum was performed with color Doppler and static bourgeois-scale imaging. COMPARISON: None. FINDINGS: RIGHT TESTICLE INTRATESTICULAR: There is a normal size of the right testicle. The right testicle measures 3.4 cm x 2.5 cm x 2.6 cm. There is a homogenous echotexture. There is normal arterial and normal venous vascularity. There is a 1.2 cm x 1.1 cm x 1.1 cm cyst in the testicle. EXTRATESTICULAR: The epididymis is normal in size. The epididymis head measures 0.9 cm x 1.6 cm x 1.1 cm. There is normal vascularity of the epididymis. There is no demonstrated epididymal cystic structure. There is no demonstrated hydrocele. There is no demonstrated varicocele. There is no demonstrated extratesticular mass or cyst. There is evidence of a right inguinal hernia. Thickening of the scrotum. LEFT TESTICLE INTRATESTICULAR: There is a normal size of the left testicle. The left testicle measures 2 cm x 3.1 cm x 1.9 cm. There is a homogenous echotexture. There is normal arterial and normal venous vascularity. There is no demonstrated left testicular mass or cyst. EXTRATESTICULAR: The epididymis is normal in size. The epididymis head measures 0.97 x 1 7 x 1.2 cm. There is normal vascularity of the epididymis. There is no demonstrated epididymal cystic structure. There is no demonstrated hydrocele. There is no demonstrated varicocele. There is no demonstrated extratesticular mass or cyst. Left inguinal hernia. Scrotal edema. US/Testicular with Arterial Flow IMPRESSION: Findings increased with bilateral inguinal hernias. Scrotal wall thickening. Electronically Signed: Reyes Strickland MD at 14:45 EDT ,
--- NOTE | 2022-09-14 07:25 | PN.HOSP_ITS ---
Reason for Visit Reason for Visit: Diagnoses Anemia, unspecified (09/03/22) Thrombocytopenia, unspecified (09/03/22) Hypo-osmolality and hyponatremia (09/03/22) Hyperkalemia (09/03/22) Acute kidney failure, unspecified (09/03/22) Other forms of dyspnea (09/03/22) Subjective Subjective Patient is a 72-year-old gentleman admitted with shortness of breath who was found to have anemia as well as impaired kidney function EGD found gastric ulcers. Patient underwent renal biopsy with tissue nephrosclerosis. Subsequently did develop hemorrhagic collection in the right posterior pararenal space following his biopsy. CT of the abdomen and pelvis also did show hydrocele as well as anasarca Objective Data Objective Data Vital Signs: Vital Signs Temp Pulse Resp BP Pulse Ox O2 Del Method 99.6 F H 82 14 120/71 94 Room Air 09/14/22 06:00 09/14/22 06:00 09/14/22 06:00 09/14/22 06:00 09/14/22 06:00 09/14/22 06:00 Oxygen Delivery Method [5] Room Air Oxygen Delivery Method [4] Room Air Oxygen Delivery Method [3] Room Air Oxygen Delivery Method [2] Room Air Oxygen Delivery Method [1 ( Room Air Initial Baseline)] Oxygen Delivery Method Room Air Weight: 81.3 kg Body Mass Index (BMI) 28.8 Intake & Output: Intake and Output for Last 24 Hours 09/12/22 09/13/22 09/14/22 23:59 23:59 23:59 Intake Total 2870.00 / 2870.00 1930 / 1930 Output Total 325 / 425 300 / 300 75 / 75 Balance 2545.00 / 2445.00 1630 / 1630 -75 / -75 Lab / Micro Data Result Diagrams: 09/14/22 05:45 09/14/22 05:45 Labs: Laboratory Results - last 24 hr 09/14/22 05:45: Sodium 125 L, Potassium 4.8, Chloride 92 L, Carbon Dioxide 22.0, Anion Gap 11, BUN 111 H*, Creatinine 4.67 H, Estim Creat Clear Calc 12.52, Est GFR (MDRD) Af Amer 16 L, Est GFR (MDRD) Non-Af 13 L, BUN/Creatinine Ratio 23.8 H , Glucose 95, Calcium 7.3 L, Phosphorus 6.6 H, Magnesium 2.5, Total Bilirubin 1.00, AST 11 L, ALT 14 L, Alkaline Phosphatase 84, Total Protein 4.5 L, Albumin 1.7 L, Globulin 2.8, Albumin/Globulin Ratio 0.6 L 09/14/22 05:45: WBC 10.2, RBC 2.87 L, Hgb 8.8 L, Hct 25.4 L, MCV 88.5, MCH 30.7, MCHC 34.6, RDW Std Deviation 41.8, RDW Coeff of Itzel 13.0, Plt Count 66 L, MPV 10.3, Immature Gran % (Auto) 0.500, Neut % (Auto) 90.4 H, Lymph % (Auto) 1.9 L, [place] % (Auto) 7.0, Eos % (Auto) 0.1, Baso % (Auto) 0.1, Absolute Neuts (auto) 9.2 H, Absolute Lymphs (auto) 0.19 L, Nucleated RBC % 0, Platelet Estimate MOD DEC Micro: Microbiology 09/06/22 23:25 Stool Stool Occult Blood (NAFISA) - Final Occult Blood Positive Radiography Diagnostic Testing: Radiology Impression Abdomen/Pelvis CT 09/13/22 12:02 IMPRESSION: Right retroperitoneal/posterior pararenal hematoma most likely related to recent CT-guided right kidney biopsy. 1. A small amount of retroperitoneal layering hemorrhage is present posterior to the right kidney in the pararenal space, which is most likely secondary to the recent CT-guided right kidney biopsy. No active hemorrhaging is seen from the adjacent right lobe of the liver or kidney or psoas muscle. This hemorrhagic collection in the right posterior pararenal space measures 6.19 x 3.95 cm. 2. Significant anasarca. Significant scrotal edema and at least small to moderate-sized testicular hydroceles. Atherosclerotic calcifications are present in the bilateral testicular vessels. 3. Moderate to large size bilateral pleural effusions 4. Anasarca 5. Electronically Signed: Patrick Hogan MD at 14:59 EDT , Physical Exam Narrative GENERAL: cooperative HEENT: Atraumatic; normocephalic EYES; Anicteric, Normal Conjunctiva NECK; supple, normal thyroid, RESPIRATORY: Diminished to auscultation CARDIOVASCULAR: Regular S1 S2, GI: soft, normoactive bowel sounds, : Scrotal swelling EXTREMITIES: No edema, no clubbing, MUSCULOSKELETAL: no muscle wasting NEURO: Awake; no lateralizing signs. Skin: No rash PSYCH: Flat affect Assessment & Plan Assessment/Plan (1) Acute renal failure: (2) Acute hyponatremia: (3) Hyperkalemia: (4) Dyspnea on exertion: (5) Acute kidney injury: PLAN: Plan Patient is a 72-year-old gentleman admitted with shortness of breath who was found to have anemia as well as impaired kidney function EGD found gastric ulcers. Patient underwent renal biopsy with tissue nephrosclerosis. Subsequently did develop hemorrhagic collection in the right posterior pararenal space following his biopsy. CT of the abdomen and pelvis also did show hydrocele as well as anasarca 1. Acute kidney injury ? With worsening kidney function. Patient underwent renal biopsy which preliminary result demonstrating nephrosclerosis final biopsy results pending. Case discussed with Dr. Ghotra with nephrology patient may need to undergo dialysis given his worsening kidney function 2. Scrotal swelling ? CT demonstrated hydrocele monitoring 3. Anemia secondary to anemia of chronic disorder as well as acute blood loss anemia patient underwent EGD which demonstrated gastritis 4. Thrombocytopenia ? Monitoring with daily CBC with differential 5. Anion gap metabolic acidosis ? Secondary to patient impaired kidney function resolved 6. Hyperkalemia ? Treated with Kayexalate and bicarb drip. 7. 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 Ultrasound did show left popliteal and tibial peroneal trunk chronic DVT patient was started on Eliquis which was held given his low platelet count 8. Dyspnea ? Multifactorial including pulmonary hypertension as well as bilateral pleural effusion patient managed with diuretics 9. Acute congestive heart failure with preserved ejection fraction ? Echo from 09/04/2022 demonstrated EF of 60% as well as moderate mitral valve insufficiency, moderate pulmonary hypertension with small pericardial effusion and moderate-sized left pleural effusion and indeterminate diastolic dysfunction. 10. Hyponatremia ? Attributed to patient impaired kidney function as well as fluid overload status nephrology on board management deferred 11. Hypothyroidism - Patient is on levothyroxine home dose continued 12. Hypertension - Blood pressure controlled, home medications continued with dose adjustment as needed 13. Elevated troponin ? Secondary to demand ischemia from impaired kidney function 14. Hearing impairment ? Patient has a hearing aid 15. DVT prophylaxis ? Patient was on apixaban held given his his low platelet count Time spent in the patient's overall evaluation,decision-making process, review of diagnostic data, adjustment of management, discussion with other providers, nursing nursing and ancillary staff involved in patient's care documentation, 50 Minutes Charges/Coding Visit Charges Inpatient E&M: 37544 Subs Hosp L3
--- NOTE | 2022-09-14 09:38 | PN.RENAL_ITS ---
Subjective Subjective Following for acute kidney injury.
--- NOTE | 2022-09-14 09:38 | PCM.PN.REN ---
Subjective Subjective Following for acute kidney injury. The patient is frustrated that he is still in the hospital. The patient still has fatigue. He denies chest pain, shortness of breath at rest, or nausea today. He has significant lower extremity edema. Objective Data Objective Data Vital Signs: Vital Signs Temp Pulse Resp BP Pulse Ox O2 Del Method 99.6 F H 82 14 120/71 94 Room Air 09/14/22 06:00 09/14/22 06:00 09/14/22 06:00 09/14/22 06:00 09/14/22 06:00 09/14/22 06:00 Oxygen Delivery Method [5] Room Air Oxygen Delivery Method [4] Room Air Oxygen Delivery Method [3] Room Air Oxygen Delivery Method [2] Room Air Oxygen Delivery Method [1 ( Room Air Initial Baseline)] Oxygen Delivery Method Room Air Weight: 81.3 kg Body Mass Index (BMI) 28.8 Intake & Output: Intake and Output for Last 24 Hours 09/12/22 09/13/22 09/14/22 23:59 23:59 23:59 Intake Total 2870.00 / 2870.00 1930 / 1930 Output Total 325 / 425 300 / 300 75 / 75 Balance 2545.00 / 2445.00 1630 / 1630 -75 / -75 Lab / Micro Data Result Diagrams: 09/14/22 05:45 09/14/22 05:45 Labs: Laboratory Results - last 24 hr 09/14/22 05:45: Sodium 125 L, Potassium 4.8, Chloride 92 L, Carbon Dioxide 22.0, Anion Gap 11, BUN 111 H*, Creatinine 4.67 H, Estim Creat Clear Calc 12.52, Est GFR (MDRD) Af Amer 16 L, Est GFR (MDRD) Non-Af 13 L, BUN/Creatinine Ratio 23.8 H, Glucose 95, Calcium 7.3 L, Phosphorus 6.6 H, Magnesium 2.5, Total Bilirubin 1.00, AST 11 L, ALT 14 L, Alkaline Phosphatase 84, Total Protein 4.5 L, Albumin 1.7 L, Globulin 2.8, Albumin/Globulin Ratio 0.6 L 09/14/22 05:45: WBC 10.2, RBC 2.87 L, Hgb 8.8 L, Hct 25.4 L, MCV 88.5, MCH 30.7, MCHC 34.6, RDW Std Deviation 41.8, RDW Coeff of Itzel 13.0, Plt Count 66 L, MPV 10.3, Immature Gran % (Auto) 0.500, Neut % (Auto) 90.4 H, Lymph % (Auto) 1.9 L, [place] % (Auto) 7.0, Eos % (Auto) 0.1, Baso % (Auto) 0.1, Absolute Neuts (auto) 9.2 H, Absolute Lymphs (auto) 0.19 L, Nucleated RBC % 0, Platelet Estimate MOD DEC Micro: Microbiology 09/06/22 23:25 Stool Stool Occult Blood (NAFISA) - Final Occult Blood Positive Radiography Diagnostic Testing: Radiology Impression Abdomen/Pelvis CT 09/13/22 12:02 IMPRESSION: Right retroperitoneal/posterior pararenal hematoma most likely related to recent CT-guided right kidney biopsy. 1. A small amount of retroperitoneal layering hemorrhage is present posterior to the right kidney in the pararenal space, which is most likely secondary to the recent CT-guided right kidney biopsy. No active hemorrhaging is seen from the adjacent right lobe of the liver or kidney or psoas muscle. This hemorrhagic collection in the right posterior pararenal space measures 6.19 x 3.95 cm. 2. Significant anasarca. Significant scrotal edema and at least small to moderate-sized testicular hydroceles. Atherosclerotic calcifications are present in the bilateral testicular vessels. 3. Moderate to large size bilateral pleural effusions 4. Anasarca 5. Electronically Signed: Patrick Hogan MD at 14:59 EDT Reading Location ID and State: [facility] / ID , Service support , Physical Exam Narrative General: Alert and oriented x3, NAD HEENT: Normocephalic, atraumatic. Mucous membrane moist. Cardiovascular: Normal S1, S2. No rubs or murmurs. Abdomen: Normal bowel sound, soft, nontender, no guarding or rebound. Extremities: There is 3+ edema of the lower extremities with scrotal swelling. There is 2+ edema of the upper extremities. Assessment & Plan Assessment/Plan (1) Acute renal failure: (2) Acute hyponatremia: (3) Hyperkalemia: (4) Dyspnea on exertion: PLAN: Plan Impression/Plan: 72-year-old male who presented to the emergency room with complaints of shortness of breath. Nephrology consulted as patient noted to have elevated serum creatinine, hyperkalemia and hyponatremia. Past medical history (obtained from [place]) includes hypertension, hypothyroidism, prostate carcinoma (diagnosed 2017) on active surveillance, no surgical intervention. Acute kidney injury. Able to obtain past records from [place]: serum creatinine 1.0 mg/dL July 01, 2022 and August 09, 2020 serum creatinine 1.1 mg/dL. On admission, 09/03 serum creatinine 3.48. So far, serum creatinine peaked 4.29 mg/dL on 09/11/2022. Renal ultrasound without any hydronephrosis. Serologies came back, all serologies are negative. Pre-existing thrombocytopenia, previous platelet count around 80,000, now around 50,000. Kidney biopsy was done on 09/10/2022. Preliminary result showed nephrosclerosis without active inflammation or immune complex deposition on immunofluorescence. EM is still pending. Renal function has been relatively stable in the last 2 to 3 days. Serum creatinine did increase to 4.67 mg/dL today, but the patient did receive diuretic yesterday. No urgent need for kidney replacement therapy. Based on what we can see on kidney biopsy so far, there is no inflammatory kidney disease/glomerulonephritis/vasculitis to treat. Continue current supportive care. However, if there is no significant improvement of renal function in next 24-48 hours, he will need at least temporary dialysis for volume control. Recheck renal function again tomorrow. Acute metabolic acidosis. Serum bicarbonate level is better today at 22 mmol/L on sodium bicarb infusion. Potassium is also improved with improving bicarbonate level. Since there is no further improvement in renal function with volume expansion and bicarbonate level is now acceptable, I will stop sodium bicarbonate infusion today. Recheck bicarbonate level tomorrow. Hyperkalemia. Potassium level was 5.9 mmol/L on 09/07/2022. Potassium level has improved and is stable today at 4.8 mmol/L. We will keep serum bicarbonate above 20 mmol/L to attenuate hyperkalemia. Since bicarbonate level has been stable for last 2 days, I will transition the patient to oral sodium bicarbonate today. Recheck potassium and bicarbonate level again tomorrow. Hyponatremia due to SHADY improved with prior diuresis. Sodium was 125 mmol/L on admission (09/03/2022). There is no worrisome symptoms of hyponatremia. Patient has normal baseline sodium per [place] labs. Serum sodium initially improved and was 128 mmol/L on 09/12/2022. However, serum sodium decreased again to 125 mmol/L today. Fortunately, there is no worrisome symptoms of hyponatremia such as confusion, nausea, ataxia, or headaches. Suspect hyponatremia is due to worsening SHADY at this point. We will limit free water. He may eventually need dialysis. We will continue to monitor. Anemia and thrombocytopenia. The patient has a history of chronic thrombocytopenia. Platelet 56K on admission, currently 66K. Past records from [place]: July 01, 2022 platelet 88 and March 14, 2021 platelet 78. Patient has chronic DVT, Eliquis is on hold. He also has acute anemia although hemoglobin has stabilized in the past few days. No evidence of thrombotic microangiopathy on kidney biopsy. GI consulted for +FOBT
[2022-09-14] MEDS: Metoprolol Tartrate 25 MG Tablet PO ×2 (09:58→22:04)
[2022-09-14] MEDS: Cyanocobalamin 500 MCG Tablet 1000 MCG PO (09:58)
[2022-09-14] MEDS: Polyethylene Glycol 3350 17 GM PACKET PO ×2 (09:58→22:00)
[2022-09-14] MEDS: Menthol/Lanolin/Calamine/Znox 113 GM Tube 1 APPLIC TOPICAL ×2 (09:59→22:00)
[2022-09-14] MEDS: Pantoprazole Sodium 40 MG Tablet PO ×2 (10:03→22:11)
--- NOTE | 2022-09-14 10:04 | CASEMGMT ---
Social Work SW placed call to pt HCPOA Alan Sandoval. SW discussed [facility] service connection and SNF options that are in network with [facility], [facility] and [facility]. Alan is appreciative of information. Initially inquiring about transfer to [facility] but after receiving information about area SNF options, Alan is agreeable for pt to stay at [facility] and go to one of the two SNFs. Per physician pt is not ready for d/c at this time. SW sent update to [facility]. [facility] will continue to follow for SNf placement. BRITTANIE Diehl
[2022-09-14] MEDS: Ferrous Sulfate 325 MG Tablet PO (11:52)
[2022-09-14 12:44] LABS: Pathologist Review Reviewed
[2022-09-14] MEDS: Sodium Bicarbonate 650 MG Tablet PO ×2 (13:50→22:01)
[2022-09-14] MEDS: Acetaminophen 325 MG Tablet 650 MG PO (13:52)
[2022-09-15] VITALS (13 sets, daily range): BP systolic 122–149; BP diastolic 71–90; PULSE 75–86; RESP 14–18; TEMP 36.8–37.4; O2SAT 93–99; BMI 28.8
[2022-09-15 06:28] LABS: Absolute Lymphocyte Count 0.19 X10^3/uL (0.83-4.51); Absolute Neutrophil Count 8.8 X10^3/uL (2.0-7.7); Basophil# 0.01 X10^3/uL; Basophil% 0.1 % (0-1); Eosinophil# 0.01 X10^3/uL; Eosinophils% 0.1 % (0-5); Hematocrit 27.3 % (40-54); Lymphocyte # 0.19 X10^3/ul (0.83-4.51); Monocyte% 5.2 % (0-10); NRBC Flagged by Analyzer 0 % (0-5); Neutrophil # 8.81 X10^3/uL (2.7-7.7); POSITIVE COUNT YES; POSITIVE DIFFERENTIAL YES; Platelet Count 68 K/mm3 (150-450); RBC Distribution Width CV 13.2 % (11.6-14.6); RBC Distribution Width SD 43.9 fl (35.1-43.9); White Blood Count 9.6 K/mm3 (4.4-11.0)
[2022-09-15 06:33] LABS: Differential Indicated SCAN CRITERIA MET
[2022-09-15 06:38] LABS: International Normalized Ratio 1.2; Partial Thromboplast Time 31.4 Seconds (24.1-36.2); Prothrombin Time (Protime)PT. 14.9 SECONDS (11.7-14.9)
--- NOTE | 2022-09-15 06:59 | CON.PCM.UR_ITS ---
Assessment & Plan Assessment/Plan (1) Acute kidney injury: PLAN: 72-year-old male with multiple medical problems including renal dysfunct ion acute kidney injury hyponatremia hyperkalemia renal failure also had gross hematuria but on review of CAT scans any obvious findings I think he continue work-up for hematuria as an outpatient the urine currently is clear so no more gross hematuria. He typically sees the [facility] for his care so at the follow-up as an outpatient with [facility] urology he may call for any questions. HPI Consult Data Date of Consult: 09/15/22 HPI Narrative Reason for Consultation: Episode of gross hematuria HPI Narrative: SAMSON ROBERTS, is a 72 M who presents to the hospital was consulted for gross hematuria. Currently has a Quinteros catheter in place urine is crystal clear with no more blood I reviewed his CAT scan there is some blood around one of his kidneys the right kidney looks like probably from a biopsy this will resolve on its own no intervention is necessary is got no hydronephrosis Quinteros catheter is in place draining clear yellow urine. [facility] Medical History BPH (benign prostatic hyperplasia) ETOH abuse Hepatitis HTN (hypertension) Hypothyroidism Mouth neoplasm Osteoarthritis Prostate cancer Medical History unable to obtain Home Medications carboxymethylcellulose sodium 0.5 % eye drops 1 drp EACH EYE TID dry eyes 09/05/22 [History Last Taken Unknown] cholecalciferol (vitamin D3) 50 mcg (2,000 unit) tablet 50 mcg PO DAILY supplement 09/05/22 [History Last Taken Unknown] cyanocobalamin (vitamin B-12) 1,000 mcg tablet 1,000 mcg PO DAILY supplement 09/05/22 [History Last Taken Unknown] levothyroxine 25 mcg tablet 25 mcg PO DAILY thyroid 09/05/22 [History Last Taken Unknown] loratadine 10 mg tablet 10 mg PO DAILY seasonal allergies 09/05/22 [History Last Taken Unknown] metoprolol tartrate 25 mg tablet 25 mg PO BID bp 09/05/22 [History Last Taken Unknown] trospium 20 mg tablet 20 mg PO BID bladder 09/05/22 [History Last Taken Unknown] Allergy/AdvReac Type Severity Reaction Status Date / Time No Known Allergies Allergy Verified 09/03/22 13:14 Surgical History Uses cochlear implant Social History Smoking Status: Former smoker ROS Constitutional Constitutional: Denies chills, fever(s) or malaise Eyes Eyes: Denies blurry vision or change in vision ENT HEENT: Reports none Cardiovascular Cardiovascular: Denies chest pain or palpitations Respiratory/Chest Respiratory/Chest: Denies cough or shortness of breath with exertion Gastrointestinal Gastrointestinal: Denies abdominal pain, constipation or diarrhea Musculoskeletal Musculoskeletal: Denies back pain, joint stiffness or joint swelling Integumentary Integumentary: Denies dry skin, jaundice, lesions or rash Neurologic Neurologic: Denies confusion, syncope or weakness Psychiatric Psychiatric: Reports none; Denies anxiety or depression Endocrine Endocrinology: Denies excessive sweating, fatigue or flushing Hematologic/Lymphatic Hematologic/Lymphatic: Denies anemia, easy bleeding or easy bruising Physical Exam Const alert and oriented x3 General Appearance: cooperative HEENT normocephalic, head/scalp atraumatic, EAC's normal and TM's normal bilaterally Eyes PERRL and EOMs intact bilaterally Pupil: sluggish Neck no lymphadenopathy, supple and no JVD General: trachea midline Lymph Lymphatic: no lymphadenopathy noted, lymphedema and lymphadenopathy Resp normal respiratory effort, normal air movement and clear to auscultation bilaterally Cardio regular rate, regular rhythm and peripheral pulses 2+ throughout GI soft to palpation, non-tender and non-distended Extremity normal capillary refill and no clubbing, cyanosis or edema General Extremity: no tenderness to palpation of joints or extremities Skin no rashes or lesions noted General Skin Exam: turgor normal Lesions: no lesions Rashes: no rashes Neuro CN's II-XII intact bilaterally Speech: speech normal Motor Exam: strength 5/5 throughout; Negative for general weakness Psych thought process normal, cooperative and affect normal Appearance: appropriate Lab / Micro Data Result Diagrams: 09/15/22 05:55 09/14/22 05:45 Labs: Laboratory Results - last 24 hr 09/12/22 05:24: Diff Path Review Reviewed 09/15/22 05:55: WBC 9.6, RBC 3.00 L, Hgb 9.0 L, Hct 27.3 L, MCV 91.0, MCH 30.0, MCHC 33.0, RDW Std Deviation 43.9, RDW Coeff of Itzel 13.2, Plt Count 68 L, MPV 11.0, Immature Gran % (Auto) 0.600, Neut % (Auto) 92.0 H, Lymph % (Auto) 2.0 L, [place] % (Auto) 5.2, Eos % (Auto) 0.1, Baso % (Auto) 0.1, Absolute Neuts (auto) 8.8 H, Absolute Lymphs (auto) 0.19 L, Nucleated RBC % 0 09/15/22 05:55: PT 14.9, INR 1.2, APTT 31.4 09/15/22 05:55: Sodium Cancelled, Potassium Cancelled, Chloride Cancelled, Carbon Dioxide Cancelled, Anion Gap Cancelled, BUN Cancelled, Creatinine Cancelled, Est GFR (MDRD) Af Amer Cancelled, Est GFR (MDRD) Non-Af Cancelled, BUN/Creatinine Ratio Cancelled, Glucose Cancelled, Calcium Cancelled Radiology Impression Testicular Ultrasound 09/14/22 07:00 IMPRESSION: Findings increased with bilateral inguinal hernias. Scrotal wall thickening. Electronically Signed: Reyes Strickland MD at 14:45 EDT ,
--- NOTE | 2022-09-15 07:17 | PN.HOSP_ITS ---
Reason for Visit Reason for Visit: Diagnoses Anemia, unspecified (09/03/22) Thrombocytopenia, unspecified (09/03/22) Hypo-osmolality and hyponatremia (09/03/22) Hyperkalemia (09/03/22) Acute kidney failure, unspecified (09/03/22) Other forms of dyspnea (09/03/22) Subjective Subjective Patient seen participating in physical therapy. Complains of some scrotal pain. Kidney function continues to worsen. Had a discussion with Dr. Ghotra with nephro logy today prior patient may end up needing dialysis Objective Data Objective Data Vital Signs: Vital Signs Temp Pulse Resp BP Pulse Ox O2 Del Method 99.3 F H 86 18 141/72 H 96 Room Air 09/15/22 04:25 09/15/22 04:25 09/15/22 04:25 09/15/22 04:25 09/15/22 04:25 09/15/22 04:27 Oxygen Delivery Method [5] Room Air Oxygen Delivery Method [4] Room Air Oxygen Delivery Method [3] Room Air Oxygen Delivery Method [2] Room Air Oxygen Delivery Method [1 ( Room Air Initial Baseline)] Oxygen Delivery Method Room Air Weight: 81.2 kg Body Mass Index (BMI) 28.8 Intake & Output: Intake and Output for Last 24 Hours 09/13/22 09/14/22 09/15/22 23:59 23:59 23:59 Intake Total 1930 / 1930 240 / 240 Output Total 300 / 300 275 / 275 Balance 1630 / 1630 -35 / -35 Lab / Micro Data Result Diagrams: 09/15/22 05:55 09/15/22 05:55 Labs: Laboratory Results - last 24 hr 09/12/22 05:24: Diff Path Review Reviewed 09/15/22 05:55: WBC 9.6, RBC 3.00 L, Hgb 9.0 L, Hct 27.3 L, MCV 91.0, MCH 30.0, MCHC 33.0, RDW Std Deviation 43.9, RDW Coeff of Itzel 13.2, Plt Count 68 L, MPV 11.0, Immature Gran % (Auto) 0.600, Neut % (Auto) 92.0 H, Lymph % (Auto) 2.0 L, [facility] % (Auto) 5.2, Eos % (Auto) 0.1, Baso % (Auto) 0.1, Absolute Neuts (auto) 8.8 H, Absolute Lymphs (auto) 0.19 L, Nucleated RBC % 0 09/15/22 05:55: PT 14.9, INR 1.2, APTT 31.4 09/15/22 05:55: Sodium Cancelled, Potassium Cancelled, Chloride Cancelled, Carbon Dioxide Cancelled, Anion Gap Cancelled, BUN Cancelled, Creatinine Cancelled, Est GFR (MDRD) Af Amer Cancelled, Est GFR (MDRD) Non-Af Cancelled, BUN/Creatinine Ratio Cancelled, Glucose Cancelled, Calcium Cancelled Micro: Microbiology 09/06/22 23:25 Stool Stool Occult Blood (NAFISA) - Final Occult Blood Positive Radiography Diagnostic Testing: Radiology Impression Testicular Ultrasound 09/14/22 07:00 IMPRESSION: Findings increased with bilateral inguinal hernias. Scrotal wall thickening. Electronically Signed: Reyes Strickland MD at 14:45 EDT , Physical Exam Narrative GENERAL: cooperative HEENT: Atraumatic; normocephalic EYES; Anicteric, Normal Conjunctiva NECK; supple, normal thyroid, RESPIRATORY: Diminished to auscultation CARDIOVASCULAR: Regular S1 S2, GI: soft, normoactive bowel sounds, : Scrotal swelling EXTREMITIES: No edema, no clubbing, MUSCULOSKELETAL: no muscle wasting NEURO: Awake; no lateralizing signs. Skin: No rash PSYCH: Flat affect Assessment & Plan Assessment/Plan (1) Acute renal failure: (2) Acute hyponatremia: (3) Hyperkalemia: (4) Dyspnea on exertion: (5) Acute kidney injury: PLAN: Plan Patient is a 72-year-old gentleman admitted with shortness of breath who was found to have anemia as well as impaired kidney function EGD found gastric ulcers. Patient underwent renal biopsy with tissue nephrosclerosis. Subsequently did develop hemorrhagic collection in the right posterior pararenal space following his biopsy. CT of the abdomen and pelvis also did show hydrocele as well as anasarca 1. Acute kidney injury ? With worsening kidney function. Patient underwent renal biopsy which preliminary result demonstrating nephrosclerosis final biopsy results pending. Case discussed with Dr. Ghotra with nephrology patient may need to undergo dialysis given his worsening kidney function ? 09/15/2022; kidney function continues to worsen 2. Scrotal swelling ? CT demonstrated hydrocele monitoring 3. Anemia secondary to anemia of chronic disorder as well as acute blood loss anemia patient underwent EGD which demonstrated gastritis 4. Thrombocytopenia ? Monitoring with daily CBC with differential 5. Anion gap metabolic acidosis ? Secondary to patient impaired kidney function resolved 6. Hyperkalemia ? Treated with Kayexalate and bicarb drip. 7. 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 Ultrasound did show left popliteal and tibial peroneal trunk chronic DVT patient was started on Eliquis which was held given his low platelet count 8. Dyspnea ? Multifactorial including pulmonary hypertension as well as bilateral pleural effusion patient managed with diuretics 9. Acute congestive heart failure with preserved ejection fraction ? Echo from 09/04/2022 demonstrated EF of 60% as well as moderate mitral valve insufficiency, moderate pulmonary hypertension with small pericardial effusion and moderate-sized left pleural effusion and indeterminate diastolic dysfunction. 10. Hyponatremia ? Attributed to patient impaired kidney function as well as fluid overload status nephrology on board management deferred 11. Hypothyroidism - Patient is on levothyroxine home dose continued 12. Hypertension - Blood pressure controlled, home medications continued with dose adjustment as needed 13. Elevated troponin ? Secondary to demand ischemia from impaired kidney function 14. Hearing impairment ? Patient has a hearing aid 15. DVT prophylaxis ? Patient was on apixaban held given his his low platelet count Time spent in the patient's overall evaluation,decision-making process, review of diagnostic data, adjustment of management, discussion with other providers, nursing nursing and ancillary staff involved in patient's care documentation, 35Minutes Charges/Coding Visit Charges Inpatient E&M: 14964 Subs Hosp L2
[2022-09-15 07:22] LABS: Albumin, Serum 1.8 g/dL (3.2-5.0); BUN 117 mg/dL (7-18); BUN/Creat Ratio 23.3 RATIO (10-20); Calcium,Total 7.4 mg/dL (8.5-10.1); Chloride 92 mmol/L (98-107); Creatinine, Serum 5.02 mg/dL (0.70-1.30); EST Glomerular Filtration Rate 12 mL/min (>60); Est Glom Filt Rate - Afr Amer 15 mL/min (>60); Estimated Creatinine Clearance 11.65 ml/min; Glucose 91 mg/dL (74-106); Phosphorus 6.8 mg/dL (2.5-4.9); Potassium 4.8 mmol/L (3.5-5.1); Sodium Level 126 mmol/L (136-145)
--- NOTE | 2022-09-15 09:12 | EX.PCM.CON.S ---
Assessment & Plan Assessment/Plan (1) Acute kidney injury: PLAN: I have been consulted in conjunction with Dr. Licea. Dr. Licea will plan to perform a right possible left chest tunneled dialysis catheter placement. Procedure details, risks and benefits have been explained. Patient has had the opportunity to ask and have questions answered. Patient verbally understands and agrees with the proposed plan. Patient is currently NPO, pre-op antibiotics have been ordered and consent form was ordered. Thank you for allowing us to participate in this patient's care. HPI Consult Data Date of Consult: 09/15/22 HPI Narrative Reason for Consultation: In need of dialysis access HPI Narrative: SAMSON ROBERTS, is a 72 M who presents with worsening shortness of breath over the last 6 months. Patient was also noted to have acute renal failure upon admission. Patient's creatinine has been trending up with lowest creatinine of 2.83 and now is 5.02. Patient states he believes he may have had dialysis previously however he is unsure. He does not follow with a fitness trainer as an outpatient. He denies any previous myocardial infarction, stroke. He does not have a pacemaker/defibrillator. He denies any pulmonary issues. He denies any previous complications or side effects from anesthesia. Patient denies any previous central lines. He does have a scar in the midline of the inferior aspect of the neck superior sternum. He is unsure what this is from. Patient was found to have a chronic DVT in the left lower extremity. He was placed on Eliquis, which is currently being held due to low platelet count. [facility] Medical History BPH (benign prostatic hyperplasia) ETOH abuse Hepatitis HTN (hypertension) Hypothyroidism Mouth neoplasm Osteoarthritis Prostate cancer Medical History unable to obtain Home Medications carboxymethylcellulose sodium 0.5 % eye drops 1 drp EACH EYE TID dry eyes 09/05/22 [History Last Taken Unknown] cholecalciferol (vitamin D3) 50 mcg (2,000 unit) tablet 50 mcg PO DAILY supplement 09/05/22 [History Last Taken Unknown] cyanocobalamin (vitamin B-12) 1,000 mcg tablet 1,000 mcg PO DAILY supplement 09/05/22 [History Last Taken Unknown] levothyroxine 25 mcg tablet 25 mcg PO DAILY thyroid 09/05/22 [History Last Taken Unknown] loratadine 10 mg tablet 10 mg PO DAILY seasonal allergies 09/05/22 [History Last Taken Unknown] metoprolol tartrate 25 mg tablet 25 mg PO BID bp 09/05/22 [History Last Taken Unknown] trospium 20 mg tablet 20 mg PO BID bladder 09/05/22 [History Last Taken Unknown] Allergy/AdvReac Type Severity Reaction Status Date / Time No Known Allergies Allergy Verified 09/03/22 13:14 Surgical History Uses cochlear implant Social History Smoking Status: Former smoker ROS Constitutional Constitutional: Reports systems reviewed and no addt'l complaints, except as documented Eyes Eyes: Reports systems reviewed and no addt'l complaints, except as documented ENT HEENT: Reports systems reviewed and no addt'l complaints, except as documented Cardiovascular Cardiovascular: Reports systems reviewed and no addt'l complaints, except as documented Respiratory/Chest Respiratory/Chest: Reports systems reviewed and no addt'l complaints, except as documented Gastrointestinal Gastrointestinal: Reports systems reviewed and no addt'l complaints, except as documented Genitourinary Genitourinary: Reports systems reviewed and no addt'l complaints, except as documented Musculoskeletal Musculoskeletal: Reports systems reviewed and no addt'l complaints, except as documented Integumentary Integumentary: Reports systems reviewed and no addt'l complaints, except as documented Neurologic Neurologic: Reports systems reviewed and no addt'l complaints, except as documented Psychiatric Psychiatric: Reports systems reviewed and no addt'l complaints, except as documented Endocrine Endocrinology: Reports systems reviewed and no addt'l complaints, except as documented Hematologic/Lymphatic Hematologic/Lymphatic: Reports systems reviewed and no addt'l complaints, except as documented Allergic/Immunologic Allergic/Immunologic: Reports systems reviewed and no addt'l complaints, except as documented Physical Exam Const alert, oriented x3 and no apparent distress HEENT normocephalic Eyes PERRL Neck full ROM Lymph Lymphatic: no lymphadenopathy noted Resp normal respiratory effort and clear to auscultation bilaterally Cardio regular rate and regular rhythm GI normal to inspection, nondistended, normoactive bowel sounds no CVA tenderness Back/Spine no CVA tenderness Extremity normal to inspection Skin Skin Narrative: Scarring noted at the inferior aspect of the neck Neuro no focal motor deficits and no sensory deficits noted Psych mental status grossly normal Lab / Micro Data Result Diagrams: 09/15/22 05:55 09/15/22 05:55 Labs: Laboratory Results - last 24 hr 09/12/22 05:24: Diff Path Review Reviewed 09/15/22 05:55: WBC 9.6, RBC 3.00 L, Hgb 9.0 L, Hct 27.3 L, MCV 91.0, MCH 30.0, MCHC 33.0, RDW Std Deviation 43.9, RDW Coeff of Itzel 13.2, Plt Count 68 L, MPV 11.0, Immature Gran % (Auto) 0.600, Neut % (Auto) 92.0 H, Lymph % (Auto) 2.0 L, [place] % (Auto) 5.2, Eos % (Auto) 0.1, Baso % (Auto) 0.1, Absolute Neuts (auto) 8.8 H, Absolute Lymphs (auto) 0.19 L, Nucleated RBC % 0 09/15/22 05:55: Sodium 126 L, Potassium 4.8, Chloride 92 L, Carbon Dioxide 21.0, BUN 117 H*, Creatinine 5.02 H, Estim Creat Clear Calc 11.65, Est GFR (MDRD) Af Amer 15 L, Est GFR (MDRD) Non-Af 12 L, BUN/Creatinine Ratio 23.3 H, Glucose 91, Calcium 7.4 L, Phosphorus 6.8 H, Albumin 1.8 L 09/15/22 05:55: PT 14.9, INR 1.2, APTT 31.4 09/15/22 05:55: Sodium Cancelled, Potassium Cancelled, Chloride Cancelled, Carbon Dioxide Cancelled, Anion Gap Cancelled, BUN Cancelled, Creatinine Cancelled, Est GFR (MDRD) Af Amer Cancelled, Est GFR (MDRD) Non-Af Cancelled, BUN/Creatinine Ratio Cancelled, Glucose Cancelled, Calcium Cancelled Radiology Impression Testicular Ultrasound 09/14/22 07:00 IMPRESSION: Findings increased with bilateral inguinal hernias. Scrotal wall thickening. Electronically Signed: Reyes Strickland MD at 14:45 EDT , Charges/Coding Visit Charges Office Visits / Consults: [id number] IP Consult L3
--- NOTE | 2022-09-15 10:07 | CASEMGMT ---
Social Work SW spoke with nephrology and pt will need dialysis. Phone call to [facility] and notified of dialysis need and diagnosis. Leia to check if they can provide in house dialysis or if they can transport to dialysis center if they cannot provide in house. [facility] states they are unable to accept pt if he requires dialysis. RAMO will await determination. BRITTANIE Diehl
--- NOTE | 2022-09-15 10:23 | PCM.PN.REN ---
Documented by User: EMMANUELLE Segura 09/15/22 10:35 Subjective Subjective Patient is sitting in chair. No overnight events. Alert and oriented. Hard of hearing but has left hearing aid. Objective Data Objective Data Vital Signs: Vital Signs Temp Pulse Resp BP Pulse Ox O2 Del Method 99.3 F H 86 18 141/72 H 96 Room Air 09/15/22 04:25 09/15/22 04:25 09/15/22 04:25 09/15/22 04:25 09/15/22 04:25 09/15/22 04:27 Oxygen Delivery Method [5] Room Air Oxygen Delivery Method [4] Room Air Oxygen Delivery Method [3] Room Air Oxygen Delivery Method [2] Room Air Oxygen Delivery Method [1 ( Room Air Initial Baseline)] Oxygen Delivery Method Room Air Weight: 81.2 kg Body Mass Index (BMI) 28.8 Intake & Output: Intake and Output for Last 24 Hours 09/13/22 09/14/22 09/15/22 23:59 23:59 23:59 Intake Total 1930 / 1930 240 / 240 Output Total 300 / 300 275 / 275 100 / 100 Balance 1630 / 1630 -35 / -35 -100 / -100 Lab / Micro Data Result Diagrams: 09/15/22 05:55 09/15/22 05:55 Labs: Laboratory Results - last 24 hr 09/12/22 05:24: Diff Path Review Reviewed 09/15/22 05:55: WBC 9.6, RBC 3.00 L, Hgb 9.0 L, Hct 27.3 L, MCV 91.0, MCH 30.0, MCHC 33.0, RDW Std Deviation 43.9, RDW Coeff of Itzel 13.2, Plt Count 68 L, MPV 11.0, Immature Gran % (Auto) 0.600, Neut % (Auto) 92.0 H, Lymph % (Auto) 2.0 L, [place] % (Auto) 5.2, Eos % (Auto) 0.1, Baso % (Auto) 0.1, Absolute Neuts (auto) 8.8 H, Absolute Lymphs (auto) 0.19 L, Nucleated RBC % 0 09/15/22 05:55: Sodium 126 L, Potassium 4.8, Chloride 92 L, Carbon Dioxide 21.0, BUN 117 H*, Creatinine 5.02 H, Estim Creat Clear Calc 11.65, Est GFR (MDRD) Af Amer 15 L, Est GFR (MDRD) Non-Af 12 L, BUN/Creatinine Ratio 23.3 H, Glucose 91, Calcium 7.4 L, Phosphorus 6.8 H, Albumin 1.8 L 09/15/22 05:55: PT 14.9, INR 1.2, APTT 31.4 09/15/22 05:55: Sodium Cancelled, Potassium Cancelled, Chloride Cancelled, Carbon Dioxide Cancelled, Anion Gap Cancelled, BUN Cancelled, Creatinine Cancelled, Est GFR (MDRD) Af Amer Cancelled, Est GFR (MDRD) Non-Af Cancelled, BUN/Creatinine Ratio Cancelled, Glucose Cancelled, Calcium Cancelled Micro: Microbiology 09/06/22 23:25 Stool Stool Occult Blood (NAFISA) - Final Occult Blood Positive Radiography Diagnostic Testing: Radiology Impression Testicular Ultrasound 09/14/22 07:00 IMPRESSION: Findings increased with bilateral inguinal hernias. Scrotal wall thickening. Electronically Signed: Reyes Strickland MD at 14:45 EDT , Physical Exam Narrative General: Alert and oriented x3, NAD HEENT: Normocephalic, atraumatic. Mucous membrane moist. Cardiovascular: Normal S1, S2. No rubs or murmurs. Abdomen: Normal bowel sounds, soft, nontender, no guarding or rebound. Extremities: There is 3+ edema of the lower extremities with scrotal swelling. There is 2+ edema of the upper extremities. Indwelling Quinteros catheter with cola colored urine in bag Assessment & Plan Assessment/Plan (1) Acute renal failure: (2) Acute hyponatremia: (3) Hyperkalemia: (4) Dyspnea on exertion: PLAN: Plan Impression/Plan: 72-year-old male who presented to the emergency room with complaints of shortness of breath. Nephrology consulted as patient noted to have elevated serum creatinine, hyperkalemia and hyponatremia. Past medical history (obtained from [place]) includes hypertension, hypothyroidism, prostate carcinoma (diagnosed 2017) on active surveillance, no surgical intervention. Acute kidney injury. Able to obtain past records from [place]: serum creatinine 1.0 mg/dL July 01, 2022 and August 09, 2020 serum creatinine 1.1 mg/dL. On admission, 09/03 serum creatinine 3.48. Creatinine is slowly rising daily and today creatinine 5.02 mg/dL, BUN 117. Renal ultrasound without any hydronephrosis. Serologies came back, all serologies are negative. Pre-existing thrombocytopenia, previous platelet count around 80,000, now around 50,000. Kidney biopsy was done on 09/10/2022. Preliminary result showed nephrosclerosis without active inflammation or immune complex deposition on immunofluorescence. EM is still pending. Initially patient was nonoliguric. Hepatitis B surface antigen negative from 09/06 Based on what we can see on kidney biopsy so far, there is no inflammatory kidney disease/glomerulonephritis/vasculitis to treat. Continue current supportive care. Due to worsening kidney function and patient is slowly becoming hypervolemic it was discussed with patient multiple times that he is heading towards needing renal replacement therapy. Patient voiced understanding of the role of hemodialysis. It was explained to patient risks and benefits of hemodialysis. It was also explained to patient without doing dialysis, and renal function continues to worsen that outcome could be . Patient voiced understanding and questions were answered. He is in agreement with moving forward with tunneled HD catheter placement and hemodialysis. Consult surgery for tunneled HD catheter today. Patient will begin HD after TDC placement. There is no urgent need for dialysis today therefore if dialysis is not done today he can dialyze tomorrow. We will attempt fluid removal as patient/blood pressure tolerates and continue to monitor for renal recovery. Hyponatremia due to SHADY improved with prior diuresis. Sodium was 125 mmol/L on admission (09/03/2022). There is no worrisome symptoms of hyponatremia. Patient has normal baseline sodium per [place] labs. Serum sodium initially improved and was 128 mmol/L on 09/12/2022. Sodium 126 today expect sodium trends to improve with hemodialysis/fluid removal. Anemia and thrombocytopenia. The patient has a history of chronic thrombocytopenia. Platelet 56K on admission, currently 68K. Past records from [place]: July 01, 2022 platelet 88 and March 14, 2021 platelet 78. Patient has chronic DVT, Eliquis is on hold. He also has acute anemia although hemoglobin has stabilized in the past few days. No evidence of thrombotic microangiopathy on kidney biopsy. GI is following. Patient had upper upper GI: Normal esophagus, multiple oozing duodenal ulcers biopsied. Liver ultrasound no signs of cirrhosis or significant heterogenicity secondary to underlying liver disease, unclear reason for thrombocytopenia. Discussed nephrology plan with discharge planning team about hemodialysis and placement. [facility] has in-house dialysis. Patient's POA is [facility] [phone] Documented by User: Dr. Janell Thorpe MD 09/15/22 16:29 Objective Data Lab / Micro Data Result Diagrams: 09/15/22 05:55 09/15/22 05:55 Assessment & Plan Assessment/Plan (1) Acute renal failure: (2) Acute hyponatremia: (3) Hyperkalemia: (4) Dyspnea on exertion: PLAN: Plan Impression/Plan: 72-year-old male who presented to the emergency room with complaints of shortness of breath. Nephrology consulted as patient noted to have elevated serum creatinine, hyperkalemia and hyponatremia. Past medical history (obtained from [place]) includes hypertension, hypothyroidism, prostate carcinoma (diagnosed 2017) on active surveillance, no surgical intervention. Acute kidney injury. Able to obtain past records from [place]: serum creatinine 1.0 mg/dL July 01, 2022 and August 09, 2020 serum creatinine 1.1 mg/dL. On admission, 09/03 serum creatinine 3.48. Creatinine is slowly rising daily and today creatinine 5.02 mg/dL, BUN 117. Renal ultrasound without any hydronephrosis. Serologies came back, all serologies are negative. Pre-existing thrombocytopenia, previous platelet count around 80,000, now around 50,000. Kidney biopsy was done on 09/10/2022. Preliminary result showed nephrosclerosis without active inflammation or immune complex deposition on immunofluorescence. EM is still pending. Initially patient was nonoliguric. Hepatitis B surface antigen negative from 09/06 Based on what we can see on kidney biopsy so far, there is no inflammatory kidney disease/glomerulonephritis/vasculitis to treat. Continue current supportive care. Due to worsening kidney function and patient is slowly becoming hypervolemic it was discussed with patient multiple times that he is heading towards needing renal replacement therapy. Patient voiced understanding of the role of hemodialysis. It was explained to patient risks and benefits of hemodialysis. It was also explained to patient without doing dialysis, and renal function continues to worsen that outcome could be . Patient voiced understanding and questions were answered. He is in agreement with moving forward with tunneled HD catheter placement and hemodialysis. Consult surgery for tunneled HD catheter today. Patient will begin HD after TDC placement. There is no urgent need for dialysis today therefore if dialysis is not done today he can dialyze tomorrow. We will attempt fluid removal as patient/blood pressure tolerates and continue to monitor for renal recovery. Hyponatremia due to SHADY improved with prior diuresis. Sodium was 125 mmol/L on admission (09/03/2022). There is no worrisome symptoms of hyponatremia. Patient has normal baseline sodium per [place] labs. Serum sodium initially improved and was 128 mmol/L on 09/12/2022. Sodium 126 today expect sodium trends to improve with hemodialysis/fluid removal. Anemia and thrombocytopenia. The patient has a history of chronic thrombocytopenia. Platelet 56K on admission, currently 68K. Past records from [place]: July 01, 2022 platelet 88 and March 14, 2021 platelet 78. Patient has chronic DVT, Eliquis is on hold. He also has acute anemia although hemoglobin has stabilized in the past few days. No evidence of thrombotic microangiopathy on kidney biopsy. GI is following. Patient had upper upper GI: Normal esophagus, multiple oozing duodenal ulcers biopsied. Liver ultrasound no signs of cirrhosis or significant heterogenicity secondary to underlying liver disease, unclear reason for thrombocytopenia. Discussed nephrology plan with discharge planning team about hemodialysis and placement. [facility] has in-house dialysis. Patient's POA is [facility] [phone] Nephrology attending addendum: Plan is to start dialysis either today or tomorrow. I spoke with pathologist again about renal biopsy findings. Again, there is no lesion found on kidney biopsy that would be amenable to medical treatment. We will see how he responds to dialysis treatment. We should be able to remove some excess fluid with dialysis to make him more comfortable as well. We will continue to work with care management on outpatient dialysis placement. Nephrology plan will be discussed with Dr. Taylor. Denny Ghotra MD.
[2022-09-15] MEDS: Menthol/Lanolin/Calamine/Znox 113 GM Tube 1 APPLIC TOPICAL ×2 (10:42→21:11)
[2022-09-15 11:20] LABS: Thyroid Stim Hormone (TSH) 3.01 uIU/mL (0.358-3.74)
[2022-09-15] MEDS: Cefazolin 2 GM in 0.9% Normal Saline 100 ML IV (13:51)
[2022-09-15] MEDS: Bupivacaine 0.25% 30 ML Vial (14:15)
[2022-09-15] MEDS: Lidocaine 1%/Epi 1:100 (30ml) 30 ML VIAL (14:15)
[2022-09-15] MEDS: Heparin 10,000 UNITS/10 ML Vial 10000 UNITS (14:19)
--- NOTE | 2022-09-15 14:23 | PCM.OPRPT ---
Report of Operation Date of Procedure: 09/15/22 Pre-Operative Diagnosis: SHADY Post-Operative Diagnosis: Same Surgery/Procedure Performed:: Placement of right IJ tunneled dialysis catheter Use of fluoroscopy Use of ultrasound Surgeon: Betty Licea Type of Anesthesia: General/Supplemental Anesthesiologist: Alin Shipley Special Medications: Ancef 2 g IV x1 Specimen's removed: None Estimated Blood Loss (mL): <10 cc Description of Procedure: After informed consent was given, the patient was brought to the operating room and placed in the supine position. Appropriate time out protocol was followed. He was then given IV conscious sedation for anesthesia. The patient's right upper chest and neck were then prepped with a surgical skin preparation and sterile surgical drapes were placed. After proper landmarks were ascertained, the skin at the upper right chest area was then infiltrated with 1:1 mixture of 1% lidocaine with epinephrine and 0.5% maricaine. A needle trocar was then inserted into the right internal jugular vein with ultrasound guidance-multiple vessels were viewed with u/s and the right IJ was chosen-- and there was good aspiration of venous blood. A wire was then threaded into the needle trocar and this was visualized under fluoroscopy to ensure that the wire was in the superior vena cava. Once this was done, then the needle trocar was removed. A small incision was made with an 11 blade knife at the wire entrance site. The dilator x2 with the introducer sheath attached was then placed over the wire into the right internal jugular vein via the Seldinger technique and this was visualized under fluoroscopy. Next the introducer and sheath were in proper position as visualized by fluoroscopy. The location of the cuffed was estimated on the skin, an incision was made with a 15 blade scalpel. The 14.5 Fr x 19 cm Palindrome dual lumen (Lot [id number] reference [id number]) was tunneled from the chest incision to the right neck incision. The sheath was removed. The catheter was placed through the introducer and was positioned with its tip at the junction of the superior vena cava and the right atrium as visualized under fluoroscopy. The cuff of the catheter was in the subcutaneous tissue. The catheter flushed and adams well with saline. Catheter was also flushed with 1.6 cc of 1-10,000 of heparin. Hemostasis was assured. Silver dressing was placed at the catheter exit site. Catheter was sutured with 3-0 nylon sutures. The neck incision was sutured with interrupted 3-0 Vicryl interrupted sutures x2 and Steri-Strips were placed. A large OpSite was placed over the catheter site and a small OpSite over the neck incision. The patient tolerated the procedure well. Implants Used: Grafts/Implants Used: 14.5 Fr x 19 cm Palindrome dual lumen (Lot [id number] reference [id number] Complications none
--- NOTE | 2022-09-15 14:40 | RAD_ITS ---
STUDY: X-RAY CHEST REASON FOR EXAM: Male, 72 years old. Dialysis cath -- pacu TECHNIQUE: Single AP portable view of the chest. COMPARISON: Comparison is made with prior study dated September 03, 2022. FINDINGS: A right-sided dialysis catheter has been placed with the tip at the junction of the superior vena cava and right atrium. EKG electrodes are seen. Small bilateral pleural effusions with bibasilar atelectasis slightly more prominent on the left side. Normal size heart. Normal mediastinum and kwasi. Normal visualized pulmonary arteries. There is atherosclerotic tortuosity of the aortic arch and descending thoracic aorta. There are diffuse degenerative changes of the visualized thoracic spine. Normal visualized ribs, clavicles, and shoulders. There is no demonstrated abnormality of the visualized soft tissue structures of the upper abdomen. RAD/Chest 1 View (Portable) IMPRESSION: The tip of the right-sided dialysis catheter is at the junction of the superior vena cava and right atrium. Small bilateral pleural effusions with bibasilar atelectasis slightly worse on the left side. Electronically Signed: Reyes Strickland MD at 15:02 EDT ,
[2022-09-15] MEDS: Pantoprazole Sodium 40 MG Tablet PO (21:10)
[2022-09-15] MEDS: Sodium Bicarbonate 650 MG Tablet PO (21:10)
[2022-09-15] MEDS: Glycerin/Hypromellose/PEG400 15 ml Bottle 1 DRP EACH EYE (21:10)
[2022-09-15] MEDS: Polyethylene Glycol 3350 17 GM PACKET PO (21:10)
[2022-09-15] MEDS: Metoprolol Tartrate 25 MG Tablet PO (21:10)
[2022-09-15] MEDS: Nystatin Powder 15gm Bottle 1 APPLIC TOPICAL (21:11)
[2022-09-16] VITALS (8 sets, daily range): BP systolic 124–137; BP diastolic 75–77; PULSE 74–80; RESP 18–20; TEMP 36.6–37.1; O2SAT 96–97; BMI 28.2
[2022-09-16] MEDS: Glycerin/Hypromellose/PEG400 15 ml Bottle 1 DRP EACH EYE ×3 (05:10→21:17)
[2022-09-16] MEDS: Sodium Bicarbonate 650 MG Tablet PO ×3 (05:11→21:16)
[2022-09-16] MEDS: Nystatin Powder 15gm Bottle 1 APPLIC TOPICAL ×3 (05:11→21:17)
[2022-09-16] MEDS: Levothyroxine 25 MCG TABLET PO (05:11)
[2022-09-16 05:49] LABS: Absolute Lymphocyte Count 0.35 X10^3/uL (0.83-4.51); Absolute Neutrophil Count 7.1 X10^3/uL (2.0-7.7); Basophil# 0.03 X10^3/uL; Basophil% 0.4 % (0-1); Eosinophil# 0.04 X10^3/uL; Eosinophils% 0.5 % (0-5); Hematocrit 26.4 % (40-54); Hemoglobin 8.4 g/dL (13.0-16.5); Lymphocyte # 0.35 X10^3/ul (0.83-4.51); Lymphocyte % 4.2 % (19-41); Mean Corp Hgb Conc 31.8 g/dL (32-36); Mean Corpuscular Hgb 30.4 pg (27.0-32.0); Mean Corpuscular Volume 95.7 fL (80-94); Mean Platelet Vol. 10.8 fl (6.2-12.0); Monocyte# 0.79 X10^3/uL; Monocyte% 9.5 % (0-10); NRBC Flagged by Analyzer 0 % (0-5); Neutrophil # 7.08 X10^3/uL (2.7-7.7); Neutrophil % 84.9 % (47-70); POSITIVE COUNT YES; POSITIVE DIFFERENTIAL YES; Platelet Count 57 K/mm3 (150-450); RBC Distribution Width CV 13.4 % (11.6-14.6); RBC Distribution Width SD 46.5 fl (35.1-43.9); Red Blood Count 2.76 M/mm3 (4.6-6.2); White Blood Count 8.3 K/mm3 (4.4-11.0)
[2022-09-16 05:51] LABS: Differential Indicated SCAN CRITERIA MET
[2022-09-16 06:35] LABS: Macrocytosis RARE; Platelet Estimate MOD DEC (ADEQ)
[2022-09-16 06:53] LABS: Anion Gap 12 (5-15); BUN 119 mg/dL (7-18); BUN/Creat Ratio 21.2 RATIO (10-20); Calcium,Total 7.3 mg/dL (8.5-10.1); Chloride 93 mmol/L (98-107); Creatinine, Serum 5.61 mg/dL (0.70-1.30); EST Glomerular Filtration Rate 11 mL/min (>60); Est Glom Filt Rate - Afr Amer 13 mL/min (>60); Estimated Creatinine Clearance 10.42 ml/min; Glucose 91 mg/dL (74-106); Potassium 4.8 mmol/L (3.5-5.1); Sodium Level 123 mmol/L (136-145)
--- NOTE | 2022-09-16 07:18 | PCM.PN.HOSP ---
Reason for Visit Reason for Visit: Diagnoses Anemia, unspecified (09/03/22) Thrombocytopenia, unspecified (09/03/22) Hypo-osmolality and hyponatremia (09/03/22) Hyperkalemia (09/03/22) Acute kidney failure, unspecified (09/03/22) Other forms of dyspnea (09/03/22) Subjective Subjective Patient creatinine continues to worsen. Case was discussed with Dr. Calderón with nephrology the day prior; Plan is for initiation of dialysis starting 09/16/2022 Objective Data Objective Data Vital Signs: Vital Signs Temp Pulse Resp BP Pulse Ox O2 Del Method O2 Flow Rate 98.3 F 79 20 H 131/76 H 96 Room Air 2 09/16/22 03:18 09/16/22 03:18 09/16/22 03:18 09/16/22 03:18 09/16/22 03:18 09/16/22 03:41 09/15/22 15:33 Oxygen Flow Rate (L/min) 2 Oxygen Delivery Method [5] Room Air Oxygen Delivery Method [4] Room Air Oxygen Delivery Method [3] Room Air Oxygen Delivery Method [2] Room Air Oxygen Delivery Method [1 ( Room Air Initial Baseline)] Oxygen Delivery Method Room Air Weight: 79.6 kg Body Mass Index (BMI) 28.2 Intake & Output: Intake and Output for Last 24 Hours 09/14/22 09/15/22 09/16/22 23:59 23:59 23:59 Intake Total 240 / 240 110 / 260 150 / 150 Output Total 275 / 275 350 / 650 750 / 750 Balance -35 / -35 -240 / -390 -600 / -600 Lab / Micro Data Result Diagrams: 09/16/22 05:40 09/16/22 05:40 Labs: Laboratory Results - last 24 hr 09/15/22 05:55: Sodium 126 L, Potassium 4.8, Chloride 92 L, Carbon Dioxide 21.0, BUN 117 H*, Creatinine 5.02 H, Estim Creat Clear Calc 11.65, Est GFR (MDRD) Af Amer 15 L, Est GFR (MDRD) Non-Af 12 L, BUN/Creatinine Ratio 23.3 H, Glucose 91, Calcium 7.4 L, Phosphorus 6.8 H, Albumin 1.8 L 09/15/22 05:55: TSH 3.01 09/16/22 05:40: WBC 8.3, RBC 2.76 L, Hgb 8.4 L, Hct 26.4 L, MCV 95.7 H D, MCH 30.4, MCHC 31.8 L, RDW Std Deviation 46.5 H, RDW Coeff of Itzel 13.4, Plt Count 57 L, MPV 10.8, Immature Gran % (Auto) 0.500, Neut % (Auto) 84.9 H, Lymph % (Auto) 4.2 L, [place] % (Auto) 9.5, Eos % (Auto) 0.5, Baso % (Auto) 0.4, Absolute Neuts (auto) 7.1, Absolute Lymphs (auto) 0.35 L, Nucleated RBC % 0, Platelet Estimate MOD DEC, Macrocytosis RARE 09/16/22 05:40: Sodium 123 L, Potassium 4.8, Chloride 93 L, Carbon Dioxide 18.0 L, Anion Gap 12, BUN 119 H*, Creatinine 5.61 H, Estim Creat Clear Calc 10.42, Est GFR (MDRD) Af Amer 13 L, Est GFR (MDRD) Non-Af 11 L, BUN/Creatinine Ratio 21.2 H, Glucose 91, Calcium 7.3 L Micro: Microbiology 09/06/22 23:25 Stool Stool Occult Blood (NAFISA) - Final Occult Blood Positive Radiography Diagnostic Testing: Radiology Impression Chest X-Ray 09/15/22 14:40 IMPRESSION: The tip of the right-sided dialysis catheter is at the junction of the superior vena cava and right atrium. Small bilateral pleural effusions with bibasilar atelectasis slightly worse on the left side. Electronically Signed: Reyes Strickland MD at 15:02 EDT , Physical Exam Narrative GENERAL: cooperative HEENT: Atraumatic; normocephalic EYES; Anicteric, Normal Conjunctiva NECK; supple, normal thyroid, RESPIRATORY: Diminished to auscultation CARDIOVASCULAR: Regular S1 S2, GI: soft, normoactive bowel sounds, : Scrotal swelling EXTREMITIES: No edema, no clubbing, MUSCULOSKELETAL: no muscle wasting NEURO: Awake; no lateralizing signs. Skin: No rash PSYCH: Flat affect Assessment & Plan Assessment/Plan (1) Acute renal failure: (2) Acute hyponatremia: (3) Hyperkalemia: (4) Dyspnea on exertion: (5) Acute kidney injury: PLAN: Plan Patient is a 72-year-old gentleman admitted with shortness of breath who was found to have anemia as well as impaired kidney function EGD found gastric ulcers. Patient underwent renal biopsy with tissue nephrosclerosis. Subsequently did develop hemorrhagic collection in the right posterior pararenal space following his biopsy. CT of the abdomen and pelvis also did show hydrocele as well as anasarca 1. Acute kidney injury ? With worsening kidney function. Patient underwent renal biopsy which preliminary result demonstrating nephrosclerosis final biopsy results pending. Case discussed with Dr. Ghotra with nephrology patient may need to undergo dialysis given his worsening kidney function ? 09/15/2022; kidney function continues to worsen -09/16/2022; Patient creatinine continues to worsen. Case was discussed with Dr. Calderón with nephrology the day prior; Plan is for initiation of dialysis starting 09/16/2022 2. Scrotal swelling ? CT demonstrated hydrocele monitoring 3. Anemia secondary to anemia of chronic disorder as well as acute blood loss anemia patient underwent EGD which demonstrated gastritis 4. Thrombocytopenia ? Monitoring with daily CBC with differential 5. Anion gap metabolic acidosis ? Secondary to patient impaired kidney function resolved 6. Hyperkalemia ? Treated with Kayexalate and bicarb drip. 7. 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 Ultrasound did show left popliteal and tibial peroneal trunk chronic DVT patient was started on Eliquis which was held given his low platelet count 8. Dyspnea ? Multifactorial including pulmonary hypertension as well as bilateral pleural effusion patient managed with diuretics 9. Acute congestive heart failure with preserved ejection fraction ? Echo from 09/04/2022 demonstrated EF of 60% as well as moderate mitral valve insufficiency, moderate pulmonary hypertension with small pericardial effusion and moderate-sized left pleural effusion and indeterminate diastolic dysfunction. 10. Hyponatremia ? Attributed to patient impaired kidney function as well as fluid overload status nephrology on board management deferred 11. Hypothyroidism - Patient is on levothyroxine home dose continued 12. Hypertension - Blood pressure controlled, home medications continued with dose adjustment as needed 13. Elevated troponin ? Secondary to demand ischemia from impaired kidney function 14. Hearing impairment ? Patient has a hearing aid 15. DVT prophylaxis ? Patient was on apixaban held given his his low platelet count Time spent in the patient's overall evaluation,decision-making process, review of diagnostic data, adjustment of management, discussion with other providers, nursing nursing and ancillary staff involved in patient's care documentation, 35 Minutes Charges/Coding Visit Charges Inpatient E&M: 79425 Subs Hosp L2
--- NOTE | 2022-09-16 09:49 | CASEMGMT ---
Social Work SW sent requested updated clinical information to [facility] for dialysis set up. Pt will need 2 days of dialysis flow sheets prior to final acceptance at [facility] for inhouse dialysis. SW will provide once available. SW met with pt and updated on discharge plan. Pt is agreeable. Plan: [facility], when medically ready BRITTANIE Diehl
--- NOTE | 2022-09-16 10:16 | DIALYSIS ---
Hemodialysis x2 hours completed at 1015 on a 2K bath, 1st treatment, tolerated well, UF 500mL, accessed via right chest tunneled dialysis catheter, worked well, post BP137/79, 2nd treatment planned for tomorrow
[2022-09-16] MEDS: Metoprolol Tartrate 25 MG Tablet PO ×2 (10:43→21:15)
[2022-09-16] MEDS: Cyanocobalamin 500 MCG Tablet 1000 MCG PO (10:43)
[2022-09-16] MEDS: Menthol/Lanolin/Calamine/Znox 113 GM Tube 1 APPLIC TOPICAL ×2 (10:44→21:18)
[2022-09-16] MEDS: Polyethylene Glycol 3350 17 GM PACKET PO ×2 (10:44→21:15)
[2022-09-16] MEDS: Pantoprazole Sodium 40 MG Tablet PO ×2 (10:44→21:16)
--- NOTE | 2022-09-16 10:50 | PN.RENAL_ITS ---
Subjective Subjective Seen at end of dialysis, tolerated treatment well. No overnight events. No complaints. Objective Data Objective Data Vital Signs: Vital Signs Temp Pulse Resp BP Pulse Ox O2 Del Method O2 Flow Rate 98.4 F 80 18 134/77 H 96 Room Air 2 09/16/22 10:40 09/16/22 10:43 09/16/22 10:40 09/16/22 10:40 09/16/22 10:40 09/16/22 10:40 09/15/22 15:33 Oxygen Flow Rate (L/min) 2 Oxygen Delivery Method [5] Room Air Oxygen Delivery Method [4] Room Air Oxygen Delivery Method [3] Room Air Oxygen Delivery Method [2] Room Air Oxygen Delivery Method [1 ( Room Air Initial Baseline)] Oxygen Delivery Method Room Air Weight: 79.6 kg Body Mass Index (BMI) 28.2 Intake & Output: Intake and Output for Last 24 Hours 09/14/22 09/15/22 09/16/22 23:59 23:59 23:59 Intake Total 240 / 240 110 / 260 150 / 150 Output Total 275 / 275 350 / 650 1250 / 1250 Balance -35 / -35 -240 / -390 -1100 / -1100 Lab / Micro Data Result Diagrams: 09/16/22 05:40 09/16/22 05:40 Labs: Laboratory Results - last 24 hr 09/15/22 05:55: TSH 3.01 09/16/22 05:40: WBC 8.3, RBC 2.76 L, Hgb 8.4 L, Hct 26.4 L, MCV 95.7 H D, MCH 30.4, MCHC 31.8 L, RDW Std Deviation 46.5 H, RDW Coeff of Itzel 13.4, Plt Count 57 L, MPV 10.8, Immature Gran % (Auto) 0.500, Neut % (Auto) 84.9 H, Lymph % (Auto) 4.2 L, [place] % (Auto) 9.5, Eos % (Auto) 0.5, Baso % (Auto) 0.4, Absolute Neuts (auto) 7.1, Absolute Lymphs (auto) 0.35 L, Nucleated RBC % 0, Platelet Estimate MOD DEC, Macrocytosis RARE 09/16/22 05:40: Sodium 123 L, Potassium 4.8, Chloride 93 L, Carbon Dioxide 18.0 L, Anion Gap 12, BUN 119 H*, Creatinine 5.61 H, Estim Creat Clear Calc 10.42, Est GFR (MDRD) Af Amer 13 L, Est GFR (MDRD) Non-Af 11 L, BUN/Creatinine Ratio 21 .2 H, Glucose 91, Calcium 7.3 L Micro: Microbiology 09/06/22 23:25 Stool Stool Occult Blood (NAFISA) - Final Occult Blood Positive Radiography Diagnostic Testing: Radiology Impression Chest X-Ray 09/15/22 14:40 IMPRESSION: The tip of the right-sided dialysis catheter is at the junction of the superior vena cava and right atrium. Small bilateral pleural effusions with bibasilar atelectasis slightly worse on the left side. Electronically Signed: Reyes Strickland MD at 15:02 EDT , Physical Exam Narrative General: Alert and oriented x3, NAD HEENT: Normocephalic, atraumatic. Mucous membrane moist. Cardiovascular: Normal S1, S2. No rubs or murmurs. Abdomen: Normal bowel sounds, soft, nontender, no guarding or rebound. Extremities: There is 3+ edema of the lower extremities with scrotal swelling. There is 2+ edema of the upper extremities. Indwelling Quinteros catheter with cola colored urine in bag Tunneled HD catheter dressing clean, dry and intact Assessment & Plan Assessment/Plan (1) Acute renal failure: (2) Acute hyponatremia: (3) Hyperkalemia: (4) Dyspnea on exertion: PLAN: Plan Impression/Plan: 72-year-old male who presented to the emergency room with complaints of shortness of breath. Nephrology consulted as patient noted to have elevated serum creatinine, hyperkalemia and hyponatremia. Past medical history (obtained from [facility]) includes hypertension, hypothyroidism, prostate carcinoma (diagnosed 2017) on active surveillance, no surgical intervention. Acute kidney injury. Able to obtain past records from [facility]: serum creatinine 1.0 mg/dL July 01, 2022 and August 09, 2020 serum creatinine 1.1 mg/dL. On admission, 09/03 serum creatinine 3.48. Creatinine is slowly rising daily and today creatinine 5.61 mg/dL, BUN 119. Renal ultrasound without any hydronephrosis. Serologies came back, all serologies are negative. Pre-existing thrombocytopenia, previous platelet count around 80,000, now around 50,000. Kidney biopsy was done on 09/10/2022. Preliminary result showed nephrosclerosis without active inflammation or immune complex deposition on immunofluorescence. EM is still pending. Initially patient was nonoliguric. Hepatitis B surface antigen negative from 09/06 Based on what we can see on kidney biopsy so far, there is no inflammatory kidney disease/glomerulonephritis/vasculitis to treat, no lesion found on kidney biopsy that would be amenable to medical treatment. Continue current supportive care. Due to worsening kidney function and patient is slowly becoming hypervolemic it was discussed with patient multiple times that he is heading towards needing renal replacement therapy. Patient voiced understanding and agreed to having tunneled HD catheter placed and starting on hemodialysis. Tunneled dialysis catheter placed 09/15. First dialysis 09/16 with 500 mL fluid removal, no heparin with HD. We will plan for dialysis again tomorrow with fluid removal as patient/blood pressure tolerates. Admission weight around 71 kg. Last weight 81 kg. We will continue to monitor for renal recovery. Phosphorus 6.8. Calcium 7.3. We will start PhosLo. - Hyponatremia due to SHADY improved with prior diuresis. Now patient is volume overloaded and expect sodium trends to improve with hemodialysis/fluid removal. Patient's sodium 123 today. Patient is asymptomatic from hyponatremia. Monitor sodium trends. - Anemia and thrombocytopenia. The patient has a history of chronic thrombocyt openia. Platelet 56K on admission. Past records from [facility]: July 01, 2022 platelet 88 and March 14, 2021 platelet 78. Patient has chronic DVT, Eliquis is on hold. Patient is not getting heparin with dialysis. He also has acute anemia although hemoglobin has stabilized in the past few days. No evidence of thrombotic microangiopathy on kidney biopsy. GI is following. Patient had upper upper GI: Normal esophagus, multiple oozing duodenal ulcers biopsied. Liver ultrasound no signs of cirrhosis or significant heterogenicity secondary to underlying liver disease, unclear reason for thromb ocytopenia. Discussed nephrology plan with discharge planning team about hemodialysis and placement. [facility] Iram Barrera has in-house dialysis. Patient's POA is Marshall Sandoval [phone]
[2022-09-16] MEDS: Ferrous Sulfate 325 MG Tablet PO (12:32)
[2022-09-16] MEDS: Calcium Acetate 667 MG Capsule PO ×2 (12:32→18:13)
[2022-09-16] MEDS: Acetaminophen 325 MG Tablet 650 MG PO ×2 (13:25→21:16)
--- NOTE | 2022-09-16 18:23 | PCM.PN.SRG ---
Subjective Subjective juan dialysis, no issues with catheter. Objective Data Objective Data Vital Signs: Vital Signs Temp Pulse Resp BP Pulse Ox O2 Del Method O2 Flow Rate 98.7 F 74 18 137/76 H 96 Room Air 2 09/16/22 16:40 09/16/22 16:40 09/16/22 16:42 09/16/22 16:40 09/16/22 16:40 09/16/22 16:42 09/15/22 15:33 Oxygen Flow Rate (L/min) 2 Oxygen Delivery Method [5] Room Air Oxygen Delivery Method [4] Room Air Oxygen Delivery Method [3] Room Air Oxygen Delivery Method [2] Room Air Oxygen Delivery Method [1 ( Room Air Initial Baseline)] Oxygen Delivery Method Room Air Weight: 175 lb 7.807 oz Body Mass Index (BMI) 28.2 Intake & Output: Intake and Output for Last 24 Hours 09/14/22 09/15/22 09/16/22 23:59 23:59 23:59 Intake Total 240 / 240 110 / 260 400 / 400 Output Total 275 / 275 350 / 650 1430 / 1430 Balance -35 / -35 -240 / -390 -1030 / -1030 Lab / Micro Data Result Diagrams: 09/16/22 05:40 09/16/22 05:40 Labs: Laboratory Results - last 24 hr 09/12/22 07:30: Crossmatch See Detail 09/16/22 05:40: WBC 8.3, RBC 2.76 L, Hgb 8.4 L, Hct 26.4 L, MCV 95.7 H D, MCH 30.4, MCHC 31.8 L, RDW Std Deviation 46.5 H, RDW Coeff of Itzel 13.4, Plt Count 57 L, MPV 10.8, Immature Gran % (Auto) 0.500, Neut % (Auto) 84.9 H, Lymph % (Auto) 4.2 L, [place] % (Auto) 9.5, Eos % (Auto) 0.5, Baso % (Auto) 0.4, Absolute Neuts (auto) 7.1, Absolute Lymphs (auto) 0.35 L, Nucleated RBC % 0, Platelet Estimate MOD DEC, Macrocytosis RARE 09/16/22 05:40: Sodium 123 L, Potassium 4.8, Chloride 93 L, Carbon Dioxide 18.0 L, Anion Gap 12, BUN 119 H*, Creatinine 5.61 H, Estim Creat Clear Calc 10.42, Est GFR (MDRD) Af Amer 13 L, Est GFR (MDRD) Non-Af 11 L, BUN/Creatinine Ratio 21.2 H, Glucose 91, Calcium 7.3 L Micro: Microbiology 09/06/22 23:25 Stool Stool Occult Blood (NAFISA) - Final Occult Blood Positive Physical Exam Narrative right IJ tunnelled dialysis catheter in place c/d/i Assessment & Plan Assessment/Plan (1) Acute kidney injury: PLAN: Plan no issues with dialysis catheter, call with questions. Charges/Coding Visit Charges Inpatient E&M: 22693 Subs Hosp L2
[2022-09-17] VITALS (9 sets, daily range): BP systolic 117–133; BP diastolic 61–77; PULSE 68–81; RESP 16–18; TEMP 36.7–36.9; O2SAT 91–96; BMI 28.2
[2022-09-17] MEDS: Glycerin/Hypromellose/PEG400 15 ml Bottle 1 DRP EACH EYE ×3 (05:45→20:55)
[2022-09-17] MEDS: Levothyroxine 25 MCG TABLET PO (05:45)
[2022-09-17] MEDS: Nystatin Powder 15gm Bottle 1 APPLIC TOPICAL ×2 (05:45→20:55)
[2022-09-17] MEDS: Sodium Bicarbonate 650 MG Tablet PO ×2 (05:46→20:57)
[2022-09-17 06:19] LABS: Absolute Neutrophil Count 4.5 X10^3/uL (2.0-7.7); Basophil# 0.02 X10^3/uL; Basophil% 0.3 % (0-1); Eosinophil# 0.12 X10^3/uL; Hematocrit 23.1 % (40-54); Hemoglobin 7.8 g/dL (13.0-16.5); Lymphocyte % 8.5 % (19-41); Mean Corp Hgb Conc 33.8 g/dL (32-36); Mean Corpuscular Hgb 30.2 pg (27.0-32.0); Mean Corpuscular Volume 89.5 fL (80-94); Mean Platelet Vol. 12.1 fl (6.2-12.0); Monocyte# 0.72 X10^3/uL; Monocyte% 12.2 % (0-10); NRBC Flagged by Analyzer 0 % (0-5); Neutrophil # 4.48 X10^3/uL (2.7-7.7); Neutrophil % 76.2 % (47-70); POSITIVE COUNT YES; POSITIVE DIFFERENTIAL YES; Platelet Count 63 K/mm3 (150-450); RBC Distribution Width CV 13.1 % (11.6-14.6); RBC Distribution Width SD 43.2 fl (35.1-43.9); Red Blood Count 2.58 M/mm3 (4.6-6.2); White Blood Count 5.9 K/mm3 (4.4-11.0)
[2022-09-17 06:20] LABS: Differential Indicated SCAN CRITERIA MET
[2022-09-17 06:38] LABS: Anion Gap 8 (5-15); BUN 89 mg/dL (7-18); BUN/Creat Ratio 18.9 RATIO (10-20); Calcium,Total 7.4 mg/dL (8.5-10.1); Chloride 95 mmol/L (98-107); EST Glomerular Filtration Rate 13 mL/min (>60); Est Glom Filt Rate - Afr Amer 16 mL/min (>60); Estimated Creatinine Clearance 12.44 ml/min; Glucose 102 mg/dL (74-106); Sodium Level 128 mmol/L (136-145)
[2022-09-17 06:40] LABS: Platelet Estimate MOD DEC (ADEQ)
--- NOTE | 2022-09-17 07:36 | PCM.PN.HOSP ---
Reason for Visit Reason for Visit: Diagnoses Anemia, unspecified (09/03/22) Thrombocytopenia, unspecified (09/03/22) Hypo-osmolality and hyponatremia (09/03/22) Hyperkalemia (09/03/22) Acute kidney failure, unspecified (09/03/22) Other forms of dyspnea (09/03/22) Subjective Subjective Patient had his first dialysis session on 09/16/2022. Seen this AM, admitted improvement in his overall clinical condition. There is some improvement in sodium level as well as creatinine Objective Data Objective Data Vital Signs: Vital Signs Temp Pulse Resp BP Pulse Ox O2 Del Method O2 Flow Rate 98.0 F 74 18 128/74 H 96 Room Air 2 09/17/22 05:30 09/17/22 05:30 09/17/22 05:30 09/17/22 05:30 09/17/22 05:30 09/17/22 05:30 09/15/22 15:33 Oxygen Flow Rate (L/min) 2 Oxygen Delivery Method [5] Room Air Oxygen Delivery Method [4] Room Air Oxygen Delivery Method [3] Room Air Oxygen Delivery Method [2] Room Air Oxygen Delivery Method [1 ( Room Air Initial Baseline)] Oxygen Delivery Method Room Air Weight: 79.6 kg Body Mass Index (BMI) 28.2 Intake & Output: Intake and Output for Last 24 Hours 09/15/22 09/16/22 09/17/22 23:59 23:59 23:59 Intake Total 110 / 260 650 / 650 80 / 80 Output Total 350 / 650 1530 / 1730 320 / 320 Balance -240 / -390 -880 / -1080 -240 / -240 Lab / Micro Data Result Diagrams: 09/17/22 05:42 09/17/22 05:42 Labs: Laboratory Results - last 24 hr 09/12/22 07:30: Crossmatch See Detail 09/17/22 05:42: WBC 5.9, RBC 2.58 L, Hgb 7.8 L, Hct 23.1 L, MCV 89.5 D, MCH 30.2, MCHC 33.8 D, RDW Std Deviation 43.2, RDW Coeff of Itzel 13.1, Plt Count 63 L, MPV 12.1 H, Immature Gran % (Auto) 0.800, Neut % (Auto) 76.2 H, Lymph % (Auto) 8.5 L, [place] % (Auto) 12.2 H, Eos % (Auto) 2.0, Baso % (Auto) 0.3, Absolute Neuts (auto) 4.5, Absolute Lymphs (auto) 0.50 L, Nucleated RBC % 0, Platelet Estimate MOD 09/17/22 05:42: Sodium 128 L, Potassium 4.0, Chloride 95 L, Carbon Dioxide 25.0, Anion Gap 8, BUN 89 H, Creatinine 4.70 H, Estim Creat Clear Calc 12.44, Est GFR (MDRD) Af Amer 16 L, Est GFR (MDRD) Non-Af 13 L, BUN/Creatinine Ratio 18.9, Glucose 102, Calcium 7.4 L Micro: Microbiology 09/06/22 23:25 Stool Stool Occult Blood (NAFISA) - Final Occult Blood Positive Physical Exam Narrative GENERAL: cooperative HEENT: Atraumatic; normocephalic EYES; Anicteric, Normal Conjunctiva NECK; supple, normal thyroid, RESPIRATORY: Diminished to auscultation CARDIOVASCULAR: Regular S1 S2, GI: soft, normoactive bowel sounds, : Scrotal swelling EXTREMITIES: No edema, no clubbing, MUSCULOSKELETAL: no muscle wasting NEURO: Awake; no lateralizing signs. Skin: No rash PSYCH: Flat affect Assessment & Plan Assessment/Plan (1) Acute renal failure: (2) Acute hyponatremia: (3) Hyperkalemia: (4) Dyspnea on exertion: (5) Acute kidney injury: PLAN: Plan Patient is a 72-year-old gentleman admitted with shortness of breath who was found to have anemia as well as impaired kidney function EGD found gastric ulcers. Patient underwent renal biopsy with tissue nephrosclerosis. Subsequently did develop hemorrhagic collection in the right posterior pararenal space following his biopsy. CT of the abdomen and pelvis also did show hydrocele as well as anasarca 1. Acute kidney injury ? With worsening kidney function. Patient underwent renal biopsy which preliminary result demonstrating nephrosclerosis final biopsy results pending. Case discussed with Dr. Ghotra with nephrology patient may need to undergo dialysis given his worsening kidney function ? 09/15/2022; kidney function continues to worsen -09/16/2022; Patient creatinine continues to worsen. Case was discussed with Dr. Calderón with nephrology the day prior; Plan is for initiation of dialysis starting 09/16/2022 ? 09/17/2022 kidney function improving. 2. Scrotal swelling ? CT demonstrated hydrocele monitoring 3. Anemia -secondary to anemia of chronic disorder as well as acute blood loss anemia patient underwent EGD which demonstrated gastritis ? 09/17/2022 hemoglobin down to 7.8 4. Thrombocytopenia ? Monitoring with daily CBC with differential 5. Anion gap metabolic acidosis ? Secondary to patient impaired kidney function resolved 6. Hyperkalemia ? Treated with Kayexalate and bicarb drip. 7. 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 Ultrasound did show left popliteal and tibial peroneal trunk chronic DVT patient was started on Eliquis which was held given his low platelet count 8. Dyspnea ? Multifactorial including pulmonary hypertension as well as bilateral pleural effusion patient managed with diuretics 9. Acute congestive heart failure with preserved ejection fraction ? Echo from 09/04/2022 demonstrated EF of 60% as well as moderate mitral valve insufficiency, moderate pulmonary hypertension with small pericardial effusion and moderate-sized left pleural effusion and indeterminate diastolic dysfunction. 10. Hyponatremia ? Attributed to patient impaired kidney function as well as fluid overload status nephrology on board management deferred 11. Hypothyroidism - Patient is on levothyroxine home dose continued 12. Hypertension - Blood pressure controlled, home medications continued with dose adjustment as needed 13. Elevated troponin ? Secondary to demand ischemia from impaired kidney function 14. Hearing impairment ? Patient has a hearing aid 15. DVT prophylaxis ? Patient was on apixaban held given his his low platelet count Time spent in the patient's overall evaluation,decision-making process, review of diagnostic data, adjustment of management, discussion with other providers, nursing nursing and ancillary staff involved in patient's care documentation, 35 Minutes Charges/Coding Visit Charges Inpatient E&M: 71677 Subs Hosp L2
[2022-09-17] MEDS: Pantoprazole Sodium 40 MG Tablet PO ×2 (10:09→20:57)
[2022-09-17] MEDS: Calcium Acetate 667 MG Capsule PO ×2 (10:09→18:33)
[2022-09-17] MEDS: Menthol/Lanolin/Calamine/Znox 113 GM Tube 1 APPLIC TOPICAL ×2 (10:10→20:55)
[2022-09-17] MEDS: Polyethylene Glycol 3350 17 GM PACKET PO ×2 (10:11→20:56)
[2022-09-17] MEDS: Cyanocobalamin 500 MCG Tablet 1000 MCG PO (10:11)
--- NOTE | 2022-09-17 13:24 | PN.RENAL_ITS ---
Subjective Subjective Patient is sitting in chair finishing lunch. He will then have his dialysis session in his room. No overnight events. No complaints today. Objective Data Objective Data Vital Signs: Vital Signs Temp Pulse Resp BP Pulse Ox O2 Del Method O2 Flow Rate 98.5 F 73 18 117/66 95 Room Air 2 09/17/22 10:03 09/17/22 10:03 09/17/22 10:03 09/17/22 10:03 09/17/22 10:40 09/17/22 10:03 09/15/22 15:33 Oxygen Flow Rate (L/min) 2 Oxygen Delivery Method [5] Room Air Oxygen Delivery Method [4] Room Air Oxygen Delivery Method [3] Room Air Oxygen Delivery Method [2] Room Air Oxygen Delivery Method [1 ( Room Air Initial Baseline)] Oxygen Delivery Method Room Air Weight: 79.6 kg Body Mass Index (BMI) 28.2 Intake & Output: Intake and Output for Last 24 Hours 09/15/22 09/16/22 09/17/22 23:59 23:59 23:59 Intake Total 110 / 260 650 / 650 80 / 80 Output Total 350 / 650 1530 / 1730 320 / 320 Balance -240 / -390 -880 / -1080 -240 / -240 Lab / Micro Data Result Diagrams: 09/17/22 05:42 09/17/22 05:42 Labs: Laboratory Results - last 24 hr 09/17/22 05:42: WBC 5.9, RBC 2.58 L, Hgb 7.8 L, Hct 23.1 L, MCV 89.5 D, MCH 30.2, MCHC 33.8 D, RDW Std Deviation 43.2, RDW Coeff of Itzel 13.1, Plt Count 63 L, MPV 12.1 H, Immature Gran % (Auto) 0.800, Neut % (Auto) 76.2 H, Lymph % (Auto) 8.5 L, [place] % (Auto) 12.2 H, Eos % (Auto) 2.0, Baso % (Auto) 0.3, Absolute Neuts (auto) 4.5, Absolute Lymphs (auto) 0.50 L, Nucleated RBC % 0, Platelet Estimate MOD DEC 09/17/22 05:42: Sodium 128 L, Potassium 4.0, Chloride 95 L, Carbon Dioxide 25.0, Anion Gap 8, BUN 89 H, Creatinine 4.70 H, Estim Creat Clear Calc 12.44, Est GFR (MDRD) Af Amer 16 L, Est GFR (MDRD) Non-Af 13 L, BUN/Creatinine Ratio 18.9, Glucose 102, Calcium 7.4 L Micro: Microbiology 09/06/22 23:25 Stool Stool Occult Blood (NAFISA) - Final Occult Blood Positive Physical Exam Narrative General: Alert and oriented x3, NAD HEENT: Normocephalic, atraumatic. Mucous membrane moist. Cardiovascular: Normal S1, S2. No rubs or murmurs. Abdomen: Normal bowel sounds, soft, nontender, no guarding or rebound. Extremities: There is 3+ edema of the lower extremities with scrotal swelling. There is 2+ edema of the upper extremities. Tunneled HD catheter dressing clean, dry and intact Assessment & Plan Assessment/Plan (1) Acute renal failure: (2) Acute hyponatremia: (3) Hyperkalemia: (4) Dyspnea on exertion: PLAN: Plan Impression/Plan: 72-year-old male who presented to the emergency room with complaints of shortness of breath. Nephrology consulted as patient noted to have elevated serum creatinine, hyperkalemia and hyponatremia. Past medical history (obtained from [place]) includes hypertension, hypothyroidism, prostate carcinoma (diagnosed 2017) on active surveillance, no surgical intervention. Acute kidney injury. Able to obtain past records from [place]: serum creatinine 1.0 mg/dL July 01, 2022 and August 09, 2020 serum creatinine 1.1 mg/dL. On admission, 09/03 serum creatinine 3.48. Creatinine peaked 5.61, BUN 119 on 09/03 (first HD day). Renal ultrasound without any hydronephrosis. Serologies came back, all serologies are negative. Pre-existing thrombocytopenia. Kidney biopsy was done on 09/10/2022. Preliminary result showed nephrosclerosis without active inflammation or immune complex deposition on immunofluorescence. EM is still pending. Initially patient was nonoliguric. Hepatitis B surface antigen negative from 09/06 Based on what we can see on kidney biopsy so far, there is no inflammatory kidney disease/glomerulonephritis/vasculitis to treat, no lesion found on kidney biopsy that would be amenable to medical treatment. Continue current supportive care. Tunneled dialysis catheter placed 09/15. First dialysis 09/16 with 500 mL fluid removal, no heparin with HD. Patient to undergo dialysis again today over 2.5 hours with around 1 L fluid removal as patient/blood pressure tolerates. Admission weight around 71 kg. Last weight 81 kg. We will continue to monitor for renal recovery. Phosphorus 6.8. Calcium 7.3. Started PhosLo, will monitor phosphorus trends. No dialysis schedule confirmed at this time therefore dialysis today, likely no dialysis tomorrow and plan for next dialysis on Wednesday. - Hyponatremia due to SHADY improved with prior diuresis. Now patient is volume overloaded and expect sodium trends to improve with hemodialysis/fluid removal. Patient's sodium 128 today. Patient is asymptomatic from hyponatremia. Monitor sodium trends. - Anemia and thrombocytopenia. The patient has a history of chronic thrombocytopenia. Platelet 56K on admission. Past records from [place]: July 01, 2022 platelet 88 and March 14, 2021 platelet 78. Patient has chronic DVT, Eliquis is on hold. Patient is not getting heparin with dialysis. He also has acute anemia although hemoglobin has stabilized in the past few days. No evidence of thrombotic microangiopathy on kidney biopsy. GI is following. Patient had upper upper GI: Normal esophagus, multiple oozing duodenal ulcers biopsied. Liver ultrasound no signs of cirrhosis or significant heterogenicity secondary to underlying liver disease, unclear reason for thrombocytopenia. Disposition; patient is a and therefore discharge plans to ECF, possibly [facility] (in [facility] Discussed nephrology plan with discharge planning team about hemodialysis and placement. [facility] has in-house dialysis. Patient does not have a dialysis schedule confirmed at this time. Patient's POA is Marshall Sandoval [phone]
--- NOTE | 2022-09-17 16:43 | DIALYSIS ---
Hemodialysis x 2.5 hours completed. UF 1400 ml. LAWRENCE almodovar A profile throughout, patient stable, report to willie Becker rn.
--- NOTE | 2022-09-17 16:56 | CASEMGMT ---
Social Work All needed dialysis information sent to [facility]. Information to be reviewed and sent to insurance to determine if [facility] can provide in house dialysis. SW to follow up for SNF placement. Plan: [facility], pending clearance for dialysis BRITTANIE Diehl
[2022-09-17] MEDS: Ferrous Sulfate 325 MG Tablet PO (18:34)
[2022-09-17] MEDS: Metoprolol Tartrate 25 MG Tablet PO (20:56)
[2022-09-18 05:02] VITALS: BMI 28.1
[2022-09-18] MEDS: Levothyroxine 25 MCG TABLET PO (05:57)
[2022-09-18] MEDS: Sodium Bicarbonate 650 MG Tablet PO (05:57)
[2022-09-18] MEDS: Glycerin/Hypromellose/PEG400 15 ml Bottle 1 DRP EACH EYE (05:58)
[2022-09-18] MEDS: Nystatin Powder 15gm Bottle 1 APPLIC TOPICAL (05:58)
[2022-09-18 06:02] VITALS: BP 127/81; PULSE 74; RESP 16; TEMP 36.9; O2SAT 97
[2022-09-18 06:18] LABS: Absolute Neutrophil Count 3.8 X10^3/uL (2.0-7.7); Basophil# 0.01 X10^3/uL; Basophil% 0.2 % (0-1); Eosinophil# 0.12 X10^3/uL; Eosinophils% 2.4 % (0-5); Hematocrit 23.8 % (40-54); Hemoglobin 7.9 g/dL (13.0-16.5); Lymphocyte % 9.9 % (19-41); Mean Corp Hgb Conc 33.2 g/dL (32-36); Mean Corpuscular Hgb 30.5 pg (27.0-32.0); Mean Corpuscular Volume 91.9 fL (80-94); Mean Platelet Vol. 11.5 fl (6.2-12.0); Monocyte# 0.58 X10^3/uL; Monocyte% 11.5 % (0-10); NRBC Flagged by Analyzer 0 % (0-5); Neutrophil # 3.81 X10^3/uL (2.7-7.7); Neutrophil % 75.4 % (47-70); POSITIVE COUNT YES; POSITIVE DIFFERENTIAL YES; Platelet Count 71 K/mm3 (150-450); RBC Distribution Width CV 13.2 % (11.6-14.6); RBC Distribution Width SD 44.4 fl (35.1-43.9); Red Blood Count 2.59 M/mm3 (4.6-6.2); White Blood Count 5.1 K/mm3 (4.4-11.0)
[2022-09-18 06:20] LABS: Differential Indicated SCAN CRITERIA MET
[2022-09-18 06:45] LABS: Anion Gap 5 (5-15); BUN 61 mg/dL (7-18); BUN/Creat Ratio 14.8 RATIO (10-20); Calcium,Total 7.8 mg/dL (8.5-10.1); Chloride 99 mmol/L (98-107); Creatinine, Serum 4.13 mg/dL (0.70-1.30); EST Glomerular Filtration Rate 15 mL/min (>60); Est Glom Filt Rate - Afr Amer 18 mL/min (>60); Estimated Creatinine Clearance 14.16 ml/min; Glucose 94 mg/dL (74-106); Sodium Level 134 mmol/L (136-145)
[2022-09-18 06:53] LABS: Differential Comment SCANNED; Platelet Estimate SLT DEC (ADEQ)
--- NOTE | 2022-09-18 07:06 | PN.HOSP_ITS ---
Reason for Visit Reason for Visit: Diagnoses Anemia, unspecified (09/03/22) Thrombocytopenia, unspecified (09/03/22) Hypo-osmolality and hyponatremia (09/03/22) Hyperkalemia (09/03/22) Acute kidney failure, unspecified (09/03/22) Other forms of dyspnea (09/03/22) Subjective Subjective Patient seen plan is for patient to be discharged to a group home facility following dialysis Objective Data Objective Data Vital Signs: Vital Signs Temp Pulse Resp BP Pulse Ox O2 Del Method O2 Flow Rate 98.5 F 74 16 127/81 H 97 Room Air 2 09/18/22 06:02 09/18/22 06:02 09/18/22 06:02 09/18/22 06:02 09/18/22 06:02 09/18/22 06:02 09/15/22 15:33 Oxygen Flow Rate (L/min) 2 Oxygen Delivery Method [5] Room Air Oxygen Delivery Method [4] Room Air Oxygen Delivery Method [3] Room Air Oxygen Delivery Method [2] Room Air Oxygen Delivery Method [1 ( Room Air Initial Baseline)] Oxygen Delivery Method Room Air Weight: 79.4 kg Body Mass Index (BMI) 28.1 Intake & Output: Intake and Output for Last 24 Hours 09/16/22 09/17/22 09/18/22 23:59 23:59 23:59 Intake Total 650 / 650 780 / 780 200 / 200 Output Total 1530 / 1730 1845 / 1845 150 / 150 Balance -880 / -1080 -1065 / -1065 50 / 50 Lab / Micro Data Result Diagrams: 09/18/22 05:26 09/18/22 05:26 Labs: Laboratory Results - last 24 hr 09/18/22 05:26: WBC 5.1, RBC 2.59 L, Hgb 7.9 L, Hct 23.8 L, MCV 91.9, MCH 30.5, MCHC 33.2, RDW Std Deviation 44.4 H, RDW Coeff of Itzel 13.2, Plt Count 71 L, MPV 11.5, Immature Gran % (Auto) 0.600, Neut % (Auto) 75.4 H, Lymph % (Auto) 9.9 L, [place] % (Auto) 11.5 H, Eos % (Auto) 2.4, Baso % (Auto) 0.2, Absolute Neuts (auto) 3.8, Absolute Lymphs (auto) 0.50 L, Nucleated RBC % 0, Differential Comment SCANNED, Platelet Estimate SLT 09/18/22 05:26: Sodium 134 L, Potassium 4.0, Chloride 99, Carbon Dioxide 30.0, Anion Gap 5, BUN 61 H, Creatinine 4.13 H, Estim Creat Clear Calc 14.16, Est GFR (MDRD) Af Amer 18 L, Est GFR (MDRD) Non-Af 15 L, BUN/Creatinine Ratio 14.8, Glucose 94, Calcium 7.8 L Micro: Microbiology 09/06/22 23:25 Stool Stool Occult Blood (NAFISA) - Final Occult Blood Positive Physical Exam Narrative GENERAL: cooperative HEENT: Atraumatic; normocephalic EYES; Anicteric, Normal Conjunctiva NECK; supple, normal thyroid, RESPIRATORY: Diminished to auscultation CARDIOVASCULAR: Regular S1 S2, GI: soft, normoactive bowel sounds, : Scrotal swelling EXTREMITIES: No edema, no clubbing, MUSCULOSKELETAL: no muscle wasting NEURO: Awake; no lateralizing signs. Skin: No rash PSYCH: Flat affect Assessment & Plan Assessment/Plan (1) Acute renal failure: (2) Acute hyponatremia: (3) Hyperkalemia: (4) Dyspnea on exertion: (5) Acute kidney injury: PLAN: Plan Patient is a 72-year-old gentleman admitted with shortness of breath who was found to have anemia as well as impaired kidney function EGD found gastric ulcers. Patient underwent renal biopsy with tissue nephrosclerosis. Subsequently did develop hemorrhagic collection in the right posterior pararenal space following his biopsy. CT of the abdomen and pelvis also did show hydrocele as well as anasarca 1. Acute kidney injury ? With worsening kidney function. Patient underwent renal biopsy which preliminary result demonstrating nephrosclerosis final biopsy results pending. Case discussed with Dr. Ghotra with nephrology patient may need to undergo dialysis given his worsening kidney function ? 09/15/2022; kidney function continues to worsen -09/16/2022; Patient creatinine continues to worsen. Case was discussed with Dr. Calderón with nephrology the day prior; Plan is for initiation of dialysis starting 09/16/2022 ? 09/17/2022 kidney function improving. 2. Scrotal swelling ? CT demonstrated hydrocele monitoring 3. Anemia -secondary to anemia of chronic disorder as well as acute blood loss anemia patient underwent EGD which demonstrated gastritis ? 09/17/2022 hemoglobin down to 7.8 4. Thrombocytopenia ? Monitoring with daily CBC with differential 5. Anion gap metabolic acidosis ? Secondary to patient impaired kidney function resolved 6. Hyperkalemia ? Treated with Kayexalate and bicarb drip. 7. 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 Ultrasound did show left popliteal and tibial peroneal trunk chronic DVT nava ent was started on Eliquis which was held given his low platelet count 8. Dyspnea ? Multifactorial including pulmonary hypertension as well as bilateral pleural effusion patient managed with diuretics 9. Acute congestive heart failure with preserved ejection fraction ? Echo from 09/04/2022 demonstrated EF of 60% as well as moderate mitral valve insufficiency, moderate pulmonary hypertension with small pericardial effusion and moderate-sized left pleural effusion and indeterminate diastolic dys function. 10. Hyponatremia ? Attributed to patient impaired kidney function as well as fluid overload status nephrology on board management deferred 11. Hypothyroidism - Patient is on levothyroxine home dose continued 12. Hypertension - Blood pressure controlled, home medications continued with dose adjustment as needed 13. Elevated troponin ? Secondary to demand ischemia from impaired kidney function 14. Hearing impairment ? Patient has a hearing aid 15. DVT prophylaxis ? Patient was on apixaban held given his his low platelet count Time spent in the patient's overall evaluation,decision-making process, review of diagnostic data, adjustment of management, discussion with other providers, nursing nursing and ancillary staff involved in patient's care documentation, 35 Minutes Charges/Coding Visit Charges Inpatient E&M: 93808 Subs Hosp L2
--- NOTE | 2022-09-18 09:23 | PCM.PN.REN ---
Subjective Subjective Following for dialysis dependent SHADY on CKD. The patient is being discharged today to SNF. He still feels poorly. His appetite is still marginal. However, there is no nausea or vomiting. Edema is improving with dialysis. Objective Data Objective Data Vital Signs: Vital Signs Temp Pulse Resp BP Pulse Ox O2 Del Method O2 Flow Rate 98.5 F 74 16 127/81 H 97 Room Air 2 09/18/22 06:02 09/18/22 06:02 09/18/22 06:02 09/18/22 06:02 09/18/22 06:02 09/18/22 06:02 09/15/22 15:33 Oxygen Flow Rate (L/min) 2 Oxygen Delivery Method [5] Room Air Oxygen Delivery Method [4] Room Air Oxygen Delivery Method [3] Room Air Oxygen Delivery Method [2] Room Air Oxygen Delivery Method [1 ( Room Air Initial Baseline)] Oxygen Delivery Method Room Air Weight: 79.4 kg Body Mass Index (BMI) 28.1 Intake & Output: Intake and Output for Last 24 Hours 09/16/22 09/17/22 09/18/22 23:59 23:59 23:59 Intake Total 650 / 650 780 / 780 200 / 200 Output Total 1530 / 1730 1845 / 1845 150 / 150 Balance -880 / -1080 -1065 / -1065 50 / 50 Lab / Micro Data Result Diagrams: 09/18/22 05:26 09/18/22 05:26 Labs: Laboratory Results - last 24 hr 09/18/22 05:26: WBC 5.1, RBC 2.59 L, Hgb 7.9 L, Hct 23.8 L, MCV 91.9, MCH 30.5, MCHC 33.2, RDW Std Deviation 44.4 H, RDW Coeff of Itzel 13.2, Plt Count 71 L, MPV 11.5, Immature Gran % (Auto) 0.600, Neut % (Auto) 75.4 H, Lymph % (Auto) 9.9 L, [place] % (Auto) 11.5 H, Eos % (Auto) 2.4, Baso % (Auto) 0.2, Absolute Neuts (auto) 3.8, Absolute Lymphs (auto) 0.50 L, Nucleated RBC % 0, Differential Comment SCANNED, Platelet Estimate SLT 09/18/22 05:26: Sodium 134 L, Potassium 4.0, Chloride 99, Carbon Dioxide 30.0, Anion Gap 5, BUN 61 H, Creatinine 4.13 H, Estim Creat Clear Calc 14.16, Est GFR (MDRD) Af Amer 18 L, Est GFR (MDRD) Non-Af 15 L, BUN/Creatinine Ratio 14.8, Glucose 94, Calcium 7.8 L Micro: Microbiology 09/06/22 23:25 Stool Stool Occult Blood (NAFISA) - Final Occult Blood Positive Physical Exam Narrative General: Alert and oriented x3, NAD HEENT: Normocephalic, atraumatic. Mucous membrane moist. Cardiovascular: Normal S1, S2. No rubs or murmurs. Abdomen: Normal bowel sounds, soft, nontender, no guarding or rebound. Extremities: There is 3+ edema of the lower extremities with scrotal swelling. There is 2+ edema of the upper extremities. Tunneled HD catheter dressing clean, dry and intact Assessment & Plan Assessment/Plan (1) Acute renal failure: (2) Acute hyponatremia: (3) Hyperkalemia: (4) Dyspnea on exertion: PLAN: Plan Impression/Plan: 72-year-old male who presented to the emergency room with complaints of shortness of breath. Nephrology consulted as patient noted to have elevated serum creatinine, hyperkalemia and hyponatremia. Past medical history (obtained from [place]) includes hypertension, hypothyroidism, prostate carcinoma (diagnosed 2017) on active surveillance, no surgical intervention. Acute kidney injury. Able to obtain past records from [place]: serum creatinine 1.0 mg/dL July 01, 2022 and August 09, 2020 serum creatinine 1.1 mg/dL. On admission, 09/03 serum creatinine 3.48. Creatinine peaked 5.61, BUN 119 on 09/16 (first HD day). Renal ultrasound without any hydronephrosis. Serologies came back, all serologies are negative. Pre-existing thrombocytopenia. Kidney biopsy was done on 09/10/2022. Preliminary result showed nephrosclerosis without active inflammation or immune complex deposition on immunofluorescence. EM is still pending. Initially patient was nonoliguric. Hepatitis B surface antigen negative from 09/06 Based on what we can see on kidney biopsy so far, there is no inflammatory kidney disease/glomerulonephritis/vasculitis to treat, no lesion found on kidney biopsy that would be amenable to medical treatment. Continue current supportive care. Tunneled dialysis catheter placed 09/15. First dialysis 09/16 with 500 mL fluid removal, no heparin with HD. Patient to undergo dialysis again today over 2.5 hours with around 1 L fluid removal as patient/blood pressure tolerates. Admission weight around 71 kg. Last weight 81 kg. We will continue to monitor for renal recovery. Phosphorus 6.8. Calcium 7.3. Started PhosLo, will monitor phosphorus trends. No need for dialysis today. The patient can wait until 09/21/2022 for next dialysis since he is being discharged to SNF. We do not go to [facility], so he will will be followed by weft straightener assigned to that [facility]. I would recommend checking weekly serum creatinine to monitor for recovery of renal function. - Hyponatremia due to SHADY improved with prior diuresis. Now patient is volume overloaded and expect sodium trends to improve with hemodialysis/fluid removal. Patient's sodium 128 today. Patient is asymptomatic from hyponatremia. Monitor sodium trends. - Anemia and thrombocytopenia. The patient has a history of chronic thrombocytopenia. Platelet 56K on admission. Past records from [place]: July 01, 2022 platelet 88 and March 14, 2021 platelet 78. Patient has chronic DVT, Eliquis is on hold. Patient is not getting heparin with dialysis. He also has acute anemia although hemoglobin has stabilized in the past few days. No evidence of thrombotic microangiopathy on kidney biopsy. GI is following. Patient had upper upper GI: Normal esophagus, multiple oozing duodenal ulcers biopsied. Liver ultrasound no signs of cirrhosis or significant heterogenicity secondary to underlying liver disease, unclear reason for thrombocytopenia. Disposition; [facility] is a and [facility] Discussed nephrology plan with discharge planning team about hemodialysis and placement. [facility] has in-house dialysis. Okay to discharge today from my standpoint. patient's POA is [facility] [phone]
[2022-09-18 09:45] VITALS: BP 148/78; PULSE 74; RESP 16; TEMP 36.6; O2SAT 98
[2022-09-18] MEDS: Pantoprazole Sodium 40 MG Tablet PO (10:37)
[2022-09-18] MEDS: Calcium Acetate 667 MG Capsule PO (10:37)
--- NOTE | 2022-09-18 10:37 | PCM.TXEXTCAR ---
Diet Diet Order/Speech Therapy: 09/15/22 14:51 Diet: Renal - General Dietary Modifications:: Potassium Restricted Is pt able to select menu?: No Routine Orders/Code Status Code Status: Full Code Wound(s) right mid back: Wound Type: Puncture RIGHT NECK: Wound Type: Surgical Incision RIGHT UPPER CHEST WALL: Wound Type: Surgical Incision Therapies Physical Therapy: Eval and Treat Occupational Therapy: Eval and Treat Speech Therapy: Eval and Treat Problem/Diagnosis (1) Acute renal failure: Status: Acute Code(s): N17.9 - Acute kidney failure, unspecified (2) Acute hyponatremia: Status: Acute Code(s): E87.1 - Hypo-osmolality and hyponatremia (3) Hyperkalemia: Status: Acute Code(s): E87.5 - Hyperkalemia (4) Dyspnea on exertion: Status: Acute Code(s): R06.09 - Other forms of dyspnea (5) Acute kidney injury: Status: Acute Code(s): N17.9 - Acute kidney failure, unspecified Plan Patient is a 72-year-old gentleman admitted with shortness of breath who was found to have anemia as well as impaired kidney function EGD found gastric ulcers. Patient underwent renal biopsy with tissue nephrosclerosis. Subsequently did develop hemorrhagic collection in the right posterior pararenal space following his biopsy. CT of the abdomen and pelvis also did show hydrocele as well as anasarca 1. Acute kidney injury ? With worsening kidney function. Patient underwent renal biopsy which preliminary result demonstrating nephrosclerosis final biopsy results pending. Case discussed with Dr. Ghotra with nephrology patient may need to undergo dialysis given his worsening kidney function ? 09/15/2022; kidney function continues to worsen -09/16/2022; Patient creatinine continues to worsen. Case was discussed with Dr. Calderón with nephrology the day prior; Plan is for initiation of dialysis starting 09/16/2022 ? 09/17/2022 kidney function improving. 2. Scrotal swelling ? CT demonstrated hydrocele monitoring 3. Anemia -secondary to anemia of chronic disorder as well as acute blood loss anemia patient underwent EGD which demonstrated gastritis ? 09/17/2022 hemoglobin down to 7.8 4. Thrombocytopenia ? Monitoring with daily CBC with differential 5. Anion gap metabolic acidosis ? Secondary to patient impaired kidney function resolved 6. Hyperkalemia ? Treated with Kayexalate and bicarb drip. 7. 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 Ultrasound did show left popliteal and tibial peroneal trunk chronic DVT patient was started on Eliquis which was held given his low platelet count 8. Dyspnea ? Multifactorial including pulmonary hypertension as well as bilateral pleural effusion patient managed with diuretics 9. Acute congestive heart failure with preserved ejection fraction ? Echo from 09/04/2022 demonstrated EF of 60% as well as moderate mitral valve insufficiency, moderate pulmonary hypertension with small pericardial effusion and moderate-sized left pleural effusion and indeterminate diastolic dysfunction. 10. Hyponatremia ? Attributed to patient impaired kidney function as well as fluid overload status nephrology on board management deferred 11. Hypothyroidism - Patient is on levothyroxine home dose continued 12. Hypertension - Blood pressure controlled, home medications continued with dose adjustment as needed 13. Elevated troponin ? Secondary to demand ischemia from impaired kidney function 14. Hearing impairment ? Patient has a hearing aid 15. DVT prophylaxis ? Patient was on apixaban held given his his low platelet count Time spent in the patient's overall evaluation,decision-making process, review of diagnostic data, adjustment of management, discussion with other providers, nursing nursing and ancillary staff involved in patient's care documentation, 35 Minutes Allergies/Procedures Done in Hospital Allergies No Known Allergies Allergy (Verified 09/03/22 13:14) Type of Care/Length of Stay Estimated LOS: Convalescent Care Less Than 30 days Type of Care Needed: Skilled Rehab Potential: Good Prognosis: Good Additional Orders/Day of Discharge Day of Discharge: 09/18/22 Dietary and Speech Recommendations Dietitian Recommendations/Changes: Will continue Renal general, potassium restricted diet with fluid restriction to manage medical conditions. Discharge Plan Admission Admit Date/Time: 09/03/22 16:35 Attending Provider: Alex Taylor Primary Care Provider: [facility],[place] Consulting Providers: Robb Suazo ; Cb [place] ; Reyes Strickland ; Jeanette Yo ; Juan Sullivan Instructions Patient Instructions: RAD irrigation pump installer Instructions for Kidney Biopsy, RAD RN Procedural Sedation Additional Instructions / Restrictions: DISCHARGE INSTRUCTIONS PLEASE READ *Please take this with you to your next doctors appointment* -You are found to have bladder wall thickening on imaging, recommend following up with a urologist upon discharge as he may need further evaluation or intervention -Please call your primary care provider's office upon discharge to schedule a hospital follow up within 1 week. -For any concerning signs or symptoms please call 911 or proceed to the nearest emergency department Discharge Orders/Prescriptions Prescriptions: New acetaminophen 325 mg Tablet 650 mg PO Q6H PRN PRN (Reason: Pain 1-10 Or Fever >100.7) Qty: 0 0RF ipratropium-albuterol 0.5 mg-3 mg(2.5 mg base)/3 mL Solution For Nebulization 3 ml inhalation Q6H.RT PRN (Reason: wheeze) Qty: 0 0RF polyethylene glycol 3350 17 gram Powder In Packet 17 g PO BID Qty: 0 0RF sodium bicarbonate 650 mg Tablet 650 mg PO TID Qty: 0 0RF pantoprazole 40 mg Tablet,Delayed Release (Dr/Ec) 40 mg PO BID Qty: 0 0RF ferrous sulfate [FeroSul] 325 mg (65 mg iron) Tablet 325 mg PO DAILY@1200 Qty: 0 0RF nystatin [Nyamyc] 100,000 unit/gram Powder 1 applic topical TID Qty: 0 0RF Protocol: *Topical Application Instructions APPLICATION INSTRUCTIONS: SCROTAL AREA calcium acetate(phosphat bind) 667 mg Capsule 667 mg PO TIDCM Qty: 0 0RF menthol-zinc oxide [Calmoseptine] 0.44-20.6 % Ointment 1 applic topical BID Qty: 0 0RF Protocol: *Topical Application Instructions APPLICATION INSTRUCTIONS: buttocks and groin Continued cyanocobalamin (vitamin B-12) 1,000 mcg Tablet 1,000 mcg PO DAILY levothyroxine 25 mcg Tablet 25 mcg PO DAILY loratadine 10 mg Tablet 10 mg PO DAILY metoprolol tartrate 25 mg Tablet 25 mg PO BID trospium 20 mg Tablet 20 mg PO BID Rx Instructions: administer on an empty stomach cholecalciferol (vitamin D3) 50 mcg (2,000 unit) Tablet 50 mcg PO DAILY carboxymethylcellulose sodium 0.5 % Drops 1 drp EACH EYE TID [facility]errals [facility]: [facility] [[facility] - Disposition Disposition (needs filled in before D/C Order can be placed): [facility]
[2022-09-18 10:38] VITALS: BP 148/78; PULSE 74
[2022-09-18] MEDS: Metoprolol Tartrate 25 MG Tablet PO (10:38)
[2022-09-18] MEDS: Cyanocobalamin 500 MCG Tablet 1000 MCG PO (10:38)
[2022-09-18] MEDS: Menthol/Lanolin/Calamine/Znox 113 GM Tube 1 APPLIC TOPICAL (10:39)
[2022-09-18] MEDS: Polyethylene Glycol 3350 17 GM PACKET PO (10:39)
--- NOTE | 2022-09-18 10:48 | DS.PCM_ITS ---
Providers Date of Admission: 09/03/22 Date of Discharge: 09/18/22 Primary Care Physician: [place] [facility] Consultations 09/07/22 07:02 Consult: Gastroenterology Routine Consulting Provider: [facility] Reason for Consult: decreasing hgb, increasing BUN, fobt + EMERGENT Consult: No Notified: Yes Date Notified: 09/07/22 Time Notified: 07:36 Method of Notification: cortext 09/07/22 08:17 Consult: Nephrology Routine Consulting Provider: Cb [place] Reason for Consult: Hyperkalemia, hyponatremia, worsening kidney fxn, uremia, NAGMA EMERGENT Consult: No MD Notified: Yes Date Notified: 09/07/22 Time Notified: 08:34 Method of Notification: Answering Service 09/08/22 03:59 Consult: Urology Routine Consulting Provider: Juan Sullivan Reason for Consult: gross hematuria EMERGENT Consult: No MD Notified: Yes Date Notified: 09/14/22 Time Notified: 08:07 Method of Notification: Answering Service 09/09/22 09:05 Consult: Interventional Radiology Routine Consulting Provider: Reyes Strickland Reason for Consult: SHADY with hematuria, proteinuria, baseline Cr 1mg/dL June 2022 EMERGENT Consult: No Notified: Yes Date Notified: 09/09/22 Time Notified: 09:05 Method of Notification: Verbal Method of Consult:: Telemedicine 09/14/22 05:55 Consult: Urology AM (NON MEDS) Consulting Provider: Juan Sullivan Reason for Consult: scrotal irritation/discomfort with hydroceles found+urina ry noahw/austin EMERGENT Consult: No MD Notified: Yes Date Notified: 09/14/22 Time Notified: 08:15 Method of Notification: Answering Service Reason For Visit: ACUTE KIDNEY FAILURE Diagnosis Discharge Diagnosis (1) Acute renal failure: Status: Acute Code(s): N17.9 - Acute kidney failure, unspecified (2) Acute hyponatremia: Status: Acute Code(s): E87.1 - Hypo-osmolality and hyponatremia (3) Hyperkalemia: Status: Acute Code(s): E87.5 - Hyperkalemia (4) Dyspnea on exertion: Status: Acute Code(s): R06.09 - Other forms of dyspnea (5) Acute kidney injury: Status: Acute Code(s): N17.9 - Acute kidney failure, unspecified Plan Patient is a 72-year-old gentleman admitted with shortness of breath who was found to have anemia as well as impaired kidney function EGD found gastric ulcers. Patient underwent renal biopsy with tissue nephrosclerosis. Subsequently did develop hemorrhagic collection in the right posterior pararenal space following his biopsy. CT of the abdomen and pelvis also did show hydrocele as well as anasarca 1. Acute kidney injury ? With worsening kidney function. Patient underwent renal biopsy which preliminary result demonstrating nephrosclerosis final biopsy results pending. Case discussed with Dr. Ghotra with nephrology patient may need to undergo dialysis given his worsening kidney function ? 09/15/2022; kidney function continues to worsen -09/16/2022; Patient creatinine continues to worsen. Case was discussed with Dr. Calderón with nephrology the day prior; Plan is for initiation of dialysis starting 09/16/2022 ? 09/17/2022 kidney function improving. 2. Scrotal swelling ? CT demonstrated hydrocele monitoring 3. Anemia -secondary to anemia of chronic disorder as well as acute blood loss anemia patient underwent EGD which demonstrated gastritis ? 09/17/2022 hemoglobin down to 7.8 4. Thrombocytopenia ? Monitoring with daily CBC with differential 5. Anion gap metabolic acidosis ? Secondary to patient impaired kidney function resolved 6. Hyperkalemia ? Treated with Kayexalate and bicarb drip. 7. 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 Ultrasound did show left popliteal and tibial peroneal trunk chronic DVT patient was started on Eliquis which was held given his low platelet count 8. Dyspnea ? Multifactorial including pulmonary hypertension as well as bilateral pleural effusion patient managed with diuretics 9. Acute congestive heart failure with preserved ejection fraction ? Echo from 09/04/2022 demonstrated EF of 60% as well as moderate mitral valve insufficiency, moderate pulmonary hypertension with small pericardial effusion and moderate-sized left pleural effusion and indeterminate diastolic dysfunction. 10. Hyponatremia ? Attributed to patient impaired kidney function as well as fluid overload status nephrology on board management deferred 11. Hypothyroidism - Patient is on levothyroxine home dose continued 12. Hypertension - Blood pressure controlled, home medications continued with dose adjustment as needed 13. Elevated troponin ? Secondary to demand ischemia from impaired kidney function 14. Hearing impairment ? Patient has a hearing aid 15. DVT prophylaxis ? Patient was on apixaban held given his his low platelet count Time spent in the patient's overall evaluation,decision-making process, review of diagnostic data, adjustment of management, discussion with other providers, nursing nursing and ancillary staff involved in patient's care documentation, 35 Minutes Medications at Discharge Home Medications carboxymethylcellulose sodium 0.5 % eye drops 1 drp EACH EYE TID dry eyes 09/05/22 cholecalciferol (vitamin D3) 50 mcg (2,000 unit) tablet 50 mcg PO DAILY supplement 09/05/22 cyanocobalamin (vitamin B-12) 1,000 mcg tablet 1,000 mcg PO DAILY supplement 09/05/22 levothyroxine 25 mcg tablet 25 mcg PO DAILY thyroid 09/05/22 loratadine 10 mg tablet 10 mg PO DAILY seasonal allergies 09/05/22 metoprolol tartrate 25 mg tablet 25 mg PO BID bp 09/05/22 trospium 20 mg tablet 20 mg PO BID bladder 09/05/22 acetaminophen 325 mg tablet 650 mg PO Q6H PRN PRN Pain 1-10 Or Fever >100.7 #0 t abs 09/18/22 calcium acetate(phosphat bind) 667 mg capsule 667 mg PO TIDCM #0 caps 09/18/22 ferrous sulfate 325 mg (65 mg iron) tablet (FeroSul) 325 mg PO DAILY@1200 #0 tabs 09/18/22 ipratropium 0.5 mg-albuterol 3 mg (2.5 mg base)/3 mL nebulization soln 3 ml inhalation Q6H.RT PRN wheeze #0 mL 09/18/22 menthol 0.44 %-zinc oxide 20.6 % topical ointment (Calmoseptine) 1 applic topical BID #0 grams 09/18/22 nystatin 100,000 unit/gram topical powder (Nyamyc) 1 applic topical TID #0 grams 09/18/22 pantoprazole 40 mg tablet,delayed release 40 mg PO BID #0 tabs 09/18/22 polyethylene glycol 3350 17 gram oral powder packet 17 g PO BID #0 ea 09/18/22 sodium bicarbonate 650 mg tablet 650 mg PO TID #0 tabs 09/18/22 Hospital Course Summary of Care Provided Minutes Spent on Discharge: 35 Physical Exam Narrative GENERAL: cooperative HEENT: Atraumatic; normocephalic EYES; Anicteric, Normal Conjunctiva NECK; supple, normal thyroid, RESPIRATORY: Diminished to auscultation CARDIOVASCULAR: Regular S1 S2, GI: soft, normoactive bowel sounds, : Scrotal swelling EXTREMITIES: No edema, no clubbing, MUSCULOSKELETAL: no muscle wasting NEURO: Awake; no lateralizing signs. Skin: No rash PSYCH: Flat affect Weight / BMI Weight Weight: 79.4 kg Body Mass Index (BMI) 28.1 ABG / Lab / Microbiology Data Result Diagrams: 09/18/22 05:26 09/18/22 05:26 Laboratory: Laboratory Results - last 24 hr 09/18/22 05:26: WBC 5.1, RBC 2.59 L, Hgb 7.9 L, Hct 23.8 L, MCV 91.9, MCH 30.5, MCHC 33.2, RDW Std Deviation 44.4 H, RDW Coeff of Itzel 13.2, Plt Count 71 L, MPV 11.5, Immature Gran % (Auto) 0.600, Neut % (Auto) 75.4 H, Lymph % (Auto) 9.9 L, Pettis % (Auto) 11.5 H, Eos % (Auto) 2.4, Baso % (Auto) 0.2, Absolute Neuts (auto) 3.8, Absolute Lymphs (auto) 0.50 L, Nucleated RBC % 0, Differential Comment SCANNED, Platelet Estimate SLT DEC 09/18/22 05:26: Sodium 134 L, Potassium 4.0, Chloride 99, Carbon Dioxide 30.0, Anion Gap 5, BUN 61 H, Creatinine 4.13 H, Estim Creat Clear Calc 14.16, Est GFR (MDRD) Af Amer 18 L, Est GFR (MDRD) Non-Af 15 L, BUN/Creatinine Ratio 14.8, Glucose 94, Calcium 7.8 L Microbiology: Microbiology 09/06/22 23:25 Stool Stool Occult Blood (NAFISA) - Final Occult Blood Positive D/C Instructions Discharge Diet: Renal Diet Discharge Activity: Return to Normal Activity Call your doctor if you observe: Fever of 101 or Higher, Shortness of breath, Fainting spells and Chest pain Meaningful Use Info Meaningful Use Diagnoses (Choose all that apply): None applicable Discharge Plan Admission Admit Date/Time: 09/03/22 16:35 Attending Provider: Alex Taylor Primary Care Provider: [facility] Consulting Providers: Robb Suazo ; Cb [place] ; Reyes Strickland ; Jeanette Yo ; Juan Sullivan Instructions Patient Instructions: RAD vice president of consulting services Instructions for Kidney Biopsy, RAD RN Procedural Sedation Additional Instructions / Restrictions: DISCHARGE INSTRUCTIONS PLEASE READ *Please take this with you to your next doctors appointment* -You are found to have bladder wall thickening on imaging, recommend following up with a urologist upon discharge as he may need further evaluation or intervention -Please call your primary care provider's office upon discharge to schedule a hospital follow up within 1 week. -For any concerning signs or symptoms please call 911 or proceed to the nearest emergency department Discharge Orders/Prescriptions Prescriptions: New acetaminophen 325 mg Tablet 650 mg PO Q6H PRN PRN (Reason: Pain 1-10 Or Fever >100.7) Qty: 0 0RF ipratropium-albuterol 0.5 mg-3 mg(2.5 mg base)/3 mL Solution For Nebulization 3 ml inhalation Q6H.RT PRN (Reason: wheeze) Qty: 0 0RF polyethylene glycol 3350 17 gram Powder In Packet 17 g PO BID Qty: 0 0RF sodium bicarbonate 650 mg Tablet 650 mg PO TID Qty: 0 0RF pantoprazole 40 mg Tablet,Delayed Release (Dr/Ec) 40 mg PO BID Qty: 0 0RF ferrous sulfate [FeroSul] 325 mg (65 mg iron) Tablet 325 mg PO DAILY@1200 Qty: 0 0RF nystatin [Nyamyc] 100,000 unit/gram Powder 1 applic topical TID Qty: 0 0RF Protocol: *Topical Application Instructions APPLICATION INSTRUCTIONS: SCROTAL AREA calcium acetate(phosphat bind) 667 mg Capsule 667 mg PO TIDCM Qty: 0 0RF menthol-zinc oxide [Calmoseptine] 0.44-20.6 % Ointment 1 applic topical BID Qty: 0 0RF Protocol: *Topical Application Instructions APPLICATION INSTRUCTIONS: buttocks and groin Continued cyanocobalamin (vitamin B-12) 1,000 mcg Tablet 1,000 mcg PO DAILY levothyroxine 25 mcg Tablet 25 mcg PO DAILY loratadine 10 mg Tablet 10 mg PO DAILY metoprolol tartrate 25 mg Tablet 25 mg PO BID trospium 20 mg Tablet 20 mg PO BID Rx Instructions: administer on an empty stomach cholecalciferol (vitamin D3) 50 mcg (2,000 unit) Tablet 50 mcg PO DAILY carboxymethylcellulose sodium 0.5 % Drops 1 drp EACH EYE TID Referrals / [facility]: [facility] [[facility] [place] - Disposition Disposition (needs filled in before D/C Order can be placed): [facility] Charges/Coding Visit Charges Inpatient E&M: 51997 Disch Hosp >30min
--- NOTE | 2022-09-18 10:52 | PHA.DC.MR ---
Pharmacy Service has performed discharge medication reconciliation for this patient. The patient's discharge medication list was reviewed for discrepancies and discrepancies were resolved. Home Medications carboxymethylcellulose sodium 0.5 % eye drops 1 drp EACH EYE TID dry eyes 09/05/22 cholecalciferol (vitamin D3) 50 mcg (2,000 unit) tablet 50 mcg PO DAILY supplement 09/05/22 cyanocobalamin (vitamin B-12) 1,000 mcg tablet 1,000 mcg PO DAILY supplement 09/05/22 levothyroxine 25 mcg tablet 25 mcg PO DAILY thyroid 09/05/22 loratadine 10 mg tablet 10 mg PO DAILY seasonal allergies 09/05/22 metoprolol tartrate 25 mg tablet 25 mg PO BID bp 09/05/22 trospium 20 mg tablet 20 mg PO BID bladder 09/05/22 acetaminophen 325 mg tablet 650 mg PO Q6H PRN PRN Pain 1-10 Or Fever >100.7 #0 tabs 09/18/22 calcium acetate(phosphat bind) 667 mg capsule 667 mg PO TIDCM #0 caps 09/18/22 ferrous sulfate 325 mg (65 mg iron) tablet (FeroSul) 325 mg PO DAILY@1200 #0 tabs 09/18/22 ipratropium 0.5 mg-albuterol 3 mg (2.5 mg base)/3 mL nebulization soln 3 ml inhalation Q6H.RT PRN wheeze #0 mL 09/18/22 menthol 0.44 %-zinc oxide 20.6 % topical ointment (Calmoseptine) 1 applic topical BID #0 grams 09/18/22 nystatin 100,000 unit/gram topical powder (Nyamyc) 1 applic topical TID #0 grams 09/18/22 pantoprazole 40 mg tablet,delayed release 40 mg PO BID #0 tabs 09/18/22 polyethylene glycol 3350 17 gram oral powder packet 17 g PO BID #0 ea 09/18/22 sodium bicarbonate 650 mg tablet 650 mg PO TID #0 tabs 09/18/22
--- NOTE | 2022-09-18 11:22 | CASEMGMT ---
Discharge Planning Discharge orders, med list, passr, and pickup time sent to [facility]. Patient will be picked up at 1p. SW and nursing notified. Nazia Jones, Discharge Planning Asst.
--- NOTE | 2022-09-18 11:22 | CASEMGMT ---
Social Work [facility] has confirmed pt can receive in house dialysis at their facility with his Dialysis starting on Wednesday. Pt can be accepted when medically ready. RAMO spoke with hospitalist and Airline Counter Agent and pt can be discharged today. RAMO completed PASSRR in [facility] and sent to [facility]. Nazia montesinos anesthesiology physician assistant updated and to complete d/c process. RAMO placed call to pt [facility]CPML [place] and updated on discharge. RAMO met with pt and updated on discharge today. Both parties agreable to d/c plan. Disposition: [facility], skilled level of care BRITTANIE Mayo
--- NOTE | 2022-09-18 12:32 | CASEMGMT ---
Discharge Planning Covid results sent to [facility] via [facility]. Nazia Jones, Discharge Planning Asst.
--- NOTE | 2022-09-18 12:36 | NURSING ---
report called to [facility]
[2022-09-18 12:46] VITALS: BP 127/71; PULSE 71; RESP 18; TEMP 36.8; O2SAT 94
== END 2022-09-18 13:42 | disposition skilled nursing facility (03) | DRG 682 ==
LOC: ED 16:50 → MS3 16:57
PROVIDERS: Anesthesiology; Internal Medicine; Internal Medicine Gastroenterology; Internal Medicine Nephrology; Nurse Practitioner Adult Health; Surgery; Admitting Provider Internal Medicine; Emergency Provider Emergency Medicine; Visit Provider Internal Medicine
PROC: 0DJ08ZZ Inspection of Upper Intestinal Tract, Via Natural or Artificial Opening Endoscopic (ICD-10-PCS; CPT 43235; principal; 2022-09-09 13:10)
PROC: 02HV33Z Insertion of Infusion Device into Superior Vena Cava, Percutaneous Approach (ICD-10-PCS; principal; 2022-09-15 14:45)
DX: N17.9 Acute kidney failure, unspecified (principal); K26.4 Chronic or unspecified duodenal ulcer with hemorrhage; I50.31 Acute diastolic (congestive) heart failure; K25.4 Chronic or unspecified gastric ulcer with hemorrhage; I31.39 Other pericardial effusion (noninflammatory); E87.1 Hypo-osmolality and hyponatremia; D62 Acute posthemorrhagic anemia; I82.532 Chronic embolism and thrombosis of left popliteal vein; I24.8 Other forms of acute ischemic heart disease; I13.0 Hypertensive heart and chronic kidney disease with heart failure and stage 1 through stage 4 chronic kidney disease, or unspecified chronic kidney disease; J90 Pleural effusion, not elsewhere classified; E87.21 Acute metabolic acidosis; D63.8 Anemia in other chronic diseases classified elsewhere; D69.6 Thrombocytopenia, unspecified; I27.20 Pulmonary hypertension, unspecified; J44.9 Chronic obstructive pulmonary disease, unspecified; Z99.2 Dependence on renal dialysis; E87.5 Hyperkalemia; E03.9 Hypothyroidism, unspecified; I34.0 Nonrheumatic mitral (valve) insufficiency; D50.9 Iron deficiency anemia, unspecified; K76.0 Fatty (change of) liver, not elsewhere classified; K29.70 Gastritis, unspecified, without bleeding; N18.9 Chronic kidney disease, unspecified; Z87.891 Personal history of nicotine dependence; R77.8 Other specified abnormalities of plasma proteins; N28.1 Cyst of kidney, acquired; H91.91 Unspecified hearing loss, right ear; R80.9 Proteinuria, unspecified; Z60.9 Problem related to social environment, unspecified; R33.9 Retention of urine, unspecified; R31.9 Hematuria, unspecified; K25.9 Gastric ulcer, unspecified as acute or chronic, without hemorrhage or perforation; N43.3 Hydrocele, unspecified; N25.89 Other disorders resulting from impaired renal tubular function
CPT/HCPCS: 36415; 71045; 71046; 71250; 74176; 76000; 76705; 76770; 76870; 77012; 80048; 80053; 80069; 80074; 80076; 81001; 82274; 82306; 82436; 82570; 82607; 82728; 82746; 82784; 83010; 83540; 83550; 83615; 83735; 83880; 83930; 83935; 84100; 84132; 84133; 84156; 84300; 84436; 84439; 84443; 84480; 84484; 84540; 85025; 85045; 85610; 85730; 86038; 86160; 86225; 86235; 86256; 86334; 86703; 86850; 86900; 86901; 86920; 86922; 87426; 88305; 88313; 88346; 88348; 88350; 90937; 93005; 93306; 93970; 93976; 94640; 97110; 97112; 97116; 97162; 97166; 97530; 97535; 97803; 99156; 99282; J7030; J7040; J7050; J7120; P9016; A4216; C1750; G0257; J0612; J1940; J2405